=== PATIENT | female | born 1975 | race Caucasian/White ===

== ENCOUNTER → 2021-11-28 11:58 | Outpatient (BNVA) | payer SELFPAY | PROVIDERS: Family Provider Nurse Practitioner; PCP Nurse Practitioner; Visit Provider Nurse Practitioner Women's Health | DX: Z01.419 Encounter for gynecological examination (general) (routine) without abnormal findings (principal); R10.2 Pelvic and perineal pain; R87.619 Unspecified abnormal cytological findings in specimens from cervix uteri | CPT/HCPCS: 84315; 87070; 87086; 87205; 87491; 87591; 87624; 87661 ==

== ENCOUNTER → 2022-06-11 07:54 | Outpatient (BNVA) | payer SELFPAY | PROVIDERS: Family Provider Nurse Practitioner; PCP Nurse Practitioner; Visit Provider Obstetrics & Gynecology | DX: R10.2 Pelvic and perineal pain (principal); N93.9 Abnormal uterine and vaginal bleeding, unspecified | CPT/HCPCS: 76830; 76857 ==

== ENCOUNTER 2023-01-01 11:36 | Day surgery (SDC) | payer OTHER, SELFPAY ==
[2022-12-31 13:14] VITALS: BMI 38.5
--- NOTE | 2022-12-31 13:34 | P.ANESASSM_ITS ---
Pre-Anesthetic Assessment Height/Weight: Height 1.68 m Weight 108.409 kg Operation Date: 01/01/23 14:35 Proposed Procedures p Diagnostic Laparoscopy 80142,R10.2 ,G89.29(Not Applicable) - Spencer Schmitt MD Familial anesthetic complications: none Was Beta Cammy taken within 24 hours: N/A Was Clonidine taken within 24 hours: N/A Social No alcohol and No tobacco Exam alert, oriented x 3, clear to auscultation bilaterally and regular rate & rhythm Airway Submandibular: within normal limits Cervical ROM: within normal limits Mallampati: Class II Dentition: full History/ROS No significant history except as noted Anesthetic Plan ASA status: 1 Anesthesia: General Medications/Allergies Home Medications Medication Instructions Recorded Confirmed Last Taken Type estradiol 0.01% (0.1 mg/gram) 1 g vaginal .three times weekly 12/03/22 12/31/22 12/29/22 Rx vaginal cream #42.5 grams Allergies Allergy/AdvReac Type Severity Reaction Status Date / Time No Known Allergies Allergy Verified 12/31/22 13:13 [facility] Anest[facility] Medical History Abnormal Pap smear of cervix (~2009) Self reported--resulting in hysterectomy by a counseling psychologist/oncologist at [facility] in [place]. She has failed to follow-up with Pap smear since that time. No pertinent past medical history neghx: htn,dm,thyroid,dvt/pe PCP: None Surgical History H/O laparoscopy ovarian cystectomy of Right ovary at 18 y/o- performed by Dr Nieto. Hx of appendectomy (~2017) Hx of hysterectomy (~2009) LAVH bilateral salpingectomy for abnormal pap smears. Performed by Dr. Wu at [facility] counseling psychologist/oncologist. Hx of oophorectomy (~2011) R ovary--- laparoscopy performed by Dr. Nieto. Family History Grandmother Colon cancer Maternal--dx age 50 Diabetes Maternal and Paternal Uterine cancer Paternal-dx age unknown Mother Diabetes Father Diabetes Hypertension Stroke Grandfather Diabetes Maternal and Paternal Family/Other Ovarian cancer Paternal Aunt--dx age 23 Denies family history of Heart disease Hypercholesteremia Breast cancer Thyroid disease Data Anesthesia Cardiac Studies: No Data to Display
[2023-01-01] VITALS (10 sets, daily range): BP systolic 121–155; BP diastolic 80–100; PULSE 68–86; RESP 14–20; TEMP 36.1–36.6; O2SAT 97–100
[2023-01-01 12:22] LABS: Add Urine Microscopic? NO; Charge for UA Resulting for Rev
[2023-01-01 12:30] LABS: Bilirubin Urine Neg (Negative); Blood Urine Neg (Negative); Glucose Urine UA Norm (Normal); Ketones Urine Negative (Negative); Leukocyte Esterase Urine Negative (Negative); Nitrate Urine Negative (Negative); Protein Urine Neg (Negative); Specific Gravity, Urine 1.015 (1.005-1.030); Urine Appearance Clear (CLEAR); Urine Color Yellow (Yellow); Urobilinogen Urine Neg (Negative); pH Urine 7 (5-7)
[2023-01-01] MEDS: sodium chloride 0.9% 1,000 ML 30 ML IV (12:30)
[2023-01-01 12:40] LABS: Basophils % 0.5 %; Eosinophils # 0.1 10^3/uL (0.0-0.8); Eosinophils % 1.2 %; Hematocrit 44.3 % (37.0-47.0); Hemoglobin 14.6 g/dL (11.5-15.3); Lymphocytes # 2.4 10^3/uL (0.8-4.8); Lymphocytes % 28.9 %; Mean Corpuscular Volume 91.2 fl (81-99); Mean Platelet Volume 10.3 fL (7.4-10.4); Monocytes # 0.7 10^3/uL (0.2-0.9); Monocytes % 8.4 %; Neutrophils % 60.8 %; Nucleated Red Blood Cells % 0 %; Platelet Count 301 10^3/cmm (130-400); Red Blood Count 4.86 10^6/uL (4.1-5.3); White Blood Count 8.2 10^3/uL (4.0-10.0)
[2023-01-01 12:57] LABS: Alanine Aminotransferase 32 U/L (0-33); Albumin Level 4.3 g/dL (3.5-5.2); Alkaline Phosphatase 144 U/L (35-105); Blood Urea Nitrogen 11 mg/dL (6-20); Calcium 9.7 mg/dL (8.5-10.5); Carbon Dioxide 27 mmol/L (22-29); Chloride 106 mmol/L (98-107); Globulin 2.8 g/dL (1.3-4.6); Glomerular Filtration Rate 89.3 mL/min (90-130); Glucose 83 mg/dL (65-115); Osmolality Calculated 293 mOsm/kg (285-295); Sodium 142 mmol/L (136-145); Total Bilirubin 0.4 mg/dL (0.15-1.2); Total Protein 7.1 g/dL (6.6-8.7)
[2023-01-01 12:59] LABS: Anion Gap 13.4 (5-19); Aspartate Amino Transferase 34 U/L (0-32); Potassium 4.4 mmol/L (3.5-5.1)
--- NOTE | 2023-01-01 13:26 | P.ANESUD_ITS ---
Pre-Anesthetic Update Pre-Anesthetic Assessment: Date of Surgery/Procedure: 01/01/23 Preop Sabrina gnosis: Pelvic pain Proposed Procedure: Operation Date: 01/01/23 14:35 Proposed Procedures p Diagnostic Laparoscopy 64188,R10.2 ,G89.29(Not Applicable) - Spencer Schmitt MD Any changes to Pre-Anesthetic Assessment?: No Last Intake: Intake Last Liquid Date 12/31/22 Last Liquid Time 21:30 Last Solid Date 12/31/22 Last Solid Time 20:00 Labs Last 48hrs: Short CBC 01/01/23 Range/Units 12:20 WBC 8.2 (4.0-10.0) 10^3/ uL Hgb 14.6 (11.5-15.3) g/dL Hct 44.3 (37.0-47.0) % MCV 91.2 (81-99) fl Plt Count 301 (130-400) 10^3/c mm Neut % (Auto) 60.8 % Neut # (Auto) 5.00 (1.8-7.7) 10^3/u L BMP 01/01/23 12:20 Sodium 142 Potassium 4.4 Chloride 106 Carbon Dioxide 27 BUN 11 Creatinine 0.7 Glucose 83 Calcium 9.7 Liver Function 01/01/23 Range/Units 12:20 Total Bilirubin 0.4 (0.15-1.2) mg/dL AST 34 H (0-32) U/L ALT 32 (0-33) U/L Alkaline Phosphata se 144 H (35-105) U/L Albumin 4.3 (3.5-5.2) g/dL Urine 01/01/23 Range/Units 12:15 Urine Color Yellow (Yellow) Urine Appearance Clear (CLEAR) Urine pH 7 (5-7) Ur Specific Gravit y 1.015 (1.005-1.030) Urine Protein Neg (Negative) Urine Glucose (UA) Norm (Normal) Urine Ketones Negative (Negative) Urine Nitrate Negative (Negative) Urine Bilirubin Neg (Negative) Ur Leukocyte [place] ase Negative (Negative) Vitals: Temperature 97.8 F 01/01/23 12:39 Temperature Source Temporal Artery S can 01/01/23 12:39 Pulse Rate 80 01/01/23 12:39 Pulse Rhythm 01/01/23 11:57 Respiratory Rate 16 01/01/23 12:39 Blood Pressure 155/100 01/01/23 12:39 Blood Pressure Elaine n 118 01/01/23 12:39 Pulse Oximetry 97 01/01/23 12:39 Oxygen Delivery Me thod 01/01/23 12:39 Exam: Pre-Anes Outpt Exam: alert, oriented x 3, clear to auscultation bilaterally and regular rate & rhythm Cardiac Studies: No Data to Display
--- NOTE | 2023-01-01 13:34 | W.PM.OPSUD ---
Surgery/Procedure H&P Update DATE OF PROCEDURE: January 01, 2023 DATE H&P PERFORMED: 12/27/22 H&P UPDATE INFORMATION: I have reviewed H&P completed within last 30 days, I have examined patient prior to procedure and No changes to prior documentation PREOP DIAGNOSIS: Pelvic pain PLANNED PROCEDURE: Operation Date: 01/01/23 14:35 Proposed Procedures p Diagnostic Laparoscopy 82963,R10.2 ,G89.29(Not Applicable) - Spencer Schmitt MD
[2023-01-01] MEDS: scopolamine 1.5 Patch 1 PATCH TRANSDERMA (13:37)
--- NOTE | 2023-01-01 13:38 | SUR.PREOP ---
13:35 NS 500 ml BOLUS INFUSED.
[2023-01-01] MEDS: ceFAZolin 2,000 MG in sodium chloride 0.9% (plus) 50 ML 100 MG IV (13:46)
--- NOTE | 2023-01-01 14:53 | P.OP_ITS ---
Operative Report Date of procedure: January 01, 2023 Pre-op diagnosis: Preop Diagnosis Pelvic pain Post-op diagnosis: Same as above. Mild endometriosis Procedure done: Diagnostic laparoscopy. Fulguration of endometriosis lesion Specimens removed/disposition: None Surgeon: Spencer Schmitt MD Estimated blood loss (mL): 1 IV fluids (mL): 900 Urine output (mL): 200 Procedure: After informed consent, the patient was taken to the operating room where general anesthesia was administered. The patient was examined under anesthesia and found to have a normal uterus with normal adnexa. She was placed in the dorsal lithotomy position and prepped and draped in sterile fashion. Pre- Procedure Time-Out verifying the correct patient identity, correct procedure verified with consent, correct site and side, correct patient position, availab ility of correct implants and any special equipment or requirements was performed and acknowledge by the OR team. A speculum was placed in the vagina, and sponge stick was placed in the vagina. The speculum was removed from the vagina. An intraumbilical incision was made with a scalpel. While tenting up on the abdomen, a Verres needle with sleeve was admitted into the intra-abdominal cavity. A saline drop test was performed and noted to be within normal limits. Pneumoperitoneum was attained with 4 liters of carbon dioxide. The Verres needle was removed. A 5 mm trocar and sleeve were admitted into the abdomen and laparoscopic confirmation of location was achieved, A second incision was made 3 cm above the symphysis pubis, and a 5 mm trocar and sleeve were admitted into the abdomen under direct, laparoscopic visualization without complication. A survey revealed normal abdominal anatomy was normal. The pelvic survey shows post hysterectomy pelvis no pathology identified, no adhesions noted. A 5 mm blunt probe was advanced through the second trocar sleeve, and light manipulation. At the vaginal cuff small mild endometriosis lesions identied and they were fulgurated with bovie spatula. Carbon dioxide was allowed to escape from the abdomen. The instruments were removed, and skin cover with a bandage. The instruments were removed from the vagina, and excellent hemostasis was noted. The patient tolerated the procedure well, and sponge, lap and needle count were correct times two. The patient taken to the recovery room in good condition.
--- NOTE | 2023-01-01 15:27 | P.PCN_ITS ---
PACU note Narrative: VSS, Good respiratory effort, report to [employer] FARM HAND Exam: awake
--- NOTE | 2023-01-01 15:27 | PM.PACU ---
PACU note Narrative: VSS, Good respiratory effort, report to SAW BOSS Exam: awake
--- NOTE | 2023-01-01 15:55 | ANE.PACU2 ---
Inpatient post-anesthesia follow up: Airway intact: Yes Vital signs: Temperature 97.4 F Pulse Rate 74 Respiratory Rate 14 Blood Pressure 132/96 Pulse Oximetry 97 Oxygen Delivery Me thod Room Air Oxygen Flow Rate 6 Fraction of Inspir ed Oxygen Hydration adequate: Yes Nausea and vomiting: No Pain level: 3 Mental status: Baseline
--- NOTE | 2023-01-01 16:27 | SUR.PHASEII ---
16:25 becerra dc ed.balloon deflated 10ML removed prior. 350ml urine output.
== END 2023-01-01 16:56 | disposition home or self-care (01) ==
PROVIDERS: PCP Nurse Practitioner Family; Visit Provider Obstetrics & Gynecology
PROC: (CPT 49320; principal; 2023-01-01 14:15)
DX: R10.2 Pelvic and perineal pain (principal); N80.42 Endometriosis of rectovaginal septum with involvement of vagina
CPT/HCPCS: 58662; 36415; 80053; 81003; 85025; 86850; 86900; J0690; J1100; J2405; J2704; J3010; J3490; J7030

== ENCOUNTER 2023-01-06 08:58 | Outpatient (CLI) | payer OTHER, SELFPAY ==
--- NOTE | 2023-01-06 09:06 | MM_ITS ---
WS: [id number] SCREENING DIGITAL BREAST TOMOSYNTHESIS MAMMOGRAM WITH CAD HISTORY: Screening. COMPARISON: 03/03/2015 Bilateral CC and MLO with tomosynthesis and synthetic mammography submitted. Computer aided detection analyzed. Breast composition: There are scattered areas of fibroglandular density. Well-circumscribed mass horacio uring 5 x 6 mm in the anterior RIGHT breast just lateral and above the nipple. May potentially be a l ymph node. This mass is not definitely present on the prior study and needs to be further evaluated. Otherwise the appearance of each breast is stable. MM/[place] [id number] IMPRESSION: BI-RADS: 0-Incomplete: Need additional imaging evaluation FOLLOW UP: Need Additional Imaging Recommendation: RIGHT breast ultrasound, limited.
== END 2023-01-06 08:59 | disposition home or self-care (01) ==
LOC: RAD 08:58
PROVIDERS: PCP Nurse Practitioner Family; Visit Provider Nurse Practitioner Women's Health
DX: Z12.31 Encounter for screening mammogram for malignant neoplasm of breast (principal)
CPT/HCPCS: 77063; 77067

== ENCOUNTER 2023-01-30 12:36 | Outpatient (CLI) | payer OTHER, SELFPAY ==
--- NOTE | 2023-01-30 13:00 | US_ITS ---
WS: [id number] ULTRASOUND RIGHT BREAST HISTORY: Follow-up screening mammograms 01/06/2023. COMPARISON: Mammogram 01/06/2023 TECHNIQUE: 2-D and Doppler. Anterior RIGHT breast mass seen on mammography is identified at 9:00. Margins are slightly lobulated. Very minimal heterogeneity within this mass. Mass measures 6 x 5 x 7 mm. This is most likely a minim ally complex cyst. Corresponds to the mammographic finding. No suspicious masses. US/US breast RT limited* [id number] IMPRESSION: BI-RADS: 3-Probably Benign FOLLOW-UP: 6 Month Follow-up Recommend limited RIGHT breast ultrasound follow-up in 6 months. Follow-up nece ssary as this is a minimally complex cyst. Favor benign.
== END 2023-01-30 12:37 | disposition home or self-care (01) ==
PROVIDERS: PCP Nurse Practitioner Family; Visit Provider Nurse Practitioner Women's Health
DX: R92.8 Other abnormal and inconclusive findings on diagnostic imaging of breast (principal)
CPT/HCPCS: 76642

== ENCOUNTER 2023-08-04 07:43 | Outpatient (CLI) | payer OTHER, SELFPAY ==
--- NOTE | 2023-08-04 08:00 | US_ITS ---
WS: [id number] ULTRASOUND RIGHT BREAST HISTORY: 6-month follow-up indeterminate RIGHT breast cyst. COMPARISON: 01/30/2023 TECHNIQUE: 2-D and Doppler. Slight decrease in size of the slightly lobulated cyst in the RIGHT breast at 9:00. No solid componen t or increased vascularity. Cyst measures 5 x 6 x 5 mm. IMPRESSION: US/US breast RT limited* [id number] BI-RADS: 2-Benign FOLLOW-UP: See Report Patient to follow-up in 6 months for screening mammogram. Mammogram should be i n December 2023. No additional imaging of the cyst in the RIGHT breast unless t here is a change on the mammogram.
== END 2023-08-04 07:44 | disposition home or self-care (01) ==
PROVIDERS: PCP Nurse Practitioner Family; Visit Provider Nurse Practitioner Women's Health
DX: R92.8 Other abnormal and inconclusive findings on diagnostic imaging of breast (principal); N60.01 Solitary cyst of right breast
CPT/HCPCS: 76642

== ENCOUNTER 2023-09-09 08:40 | Day surgery (SDC) | payer OTHER, SELFPAY ==
[2023-09-05 13:16] LABS: Add Urine Microscopic? NO; Charge for UA Resulting for Rev
[2023-09-05 13:20] LABS: Basophils # 0.1 10^3/uL (0.0-0.1); Basophils % 0.5 %; Eosinophils # 0.1 10^3/uL (0.0-0.8); Eosinophils % 0.9 %; Hematocrit 42.4 % (36-47); Lymphocytes # 2.6 10^3/uL (0.8-4.8); Lymphocytes % 28.7 %; Mean Corpuscular HGB Conc 33.3 g/dL (30-55); Mean Corpuscular Hemoglobin 30.5 pg (27-33); Mean Corpuscular Volume 91.6 fl (85-98); Mean Platelet Volume 9.7 fL (7.4-10.4); Monocytes # 0.8 10^3/uL (0.2-0.9); Monocytes % 8.4 %; Neutrophils # 5.58 10^3/uL (1.8-7.7); Neutrophils % 61.2 %; Nucleated Red Blood Cells % 0 %; Platelet Count 317 10^3/cmm (157-399); Red Blood Count 4.63 10^6/uL (3.85-5.65); White Blood Count 9.13 10^3/uL (3.29-11.43)
--- NOTE | 2023-09-05 13:23 | ANES.PREANE2 ---
Pre-Anesthetic Assessment Height/Weight: Height 1.68 m Operation Date: 09/09/23 12:25 Proposed Procedures p Laparoscopic left oophorectomy 08931,R10.2,G89.29,N80.9(Left) - Spencer Schmitt MD Familial anesthetic complications: None Social No alcohol and No tobacco Exam alert, oriented x 3, clear to auscultation bilaterally and regular rate & rhythm Airway Mallampati: Class I Dentition: full CV/HEM Hypertension GI Gastroesophageal Reflux Disease Anesthetic Plan ASA status: 2 Anesthesia: General Risk of > 500 ml blood loss (7ml/kg in children): No Medications/Allergies Home Medications Medication Instructions Recorded Confirmed Last Taken Type ibuprofen 800 mg tablet 800 mg PO TID PRN pain #90 tabs 01/01/23 09/05/23 Unknown Rx hydrochlorothiazide 25 mg tablet 25 mg PO DAILY 02/17/23 09/05/23 09/05/23 History lisinopril 10 mg tablet 10 mg PO DAILY 02/17/23 09/05/23 09/05/23 History omeprazole 20 mg capsule,delayed 20 mg PO DAILY 06/26/23 09/05/23 09/05/23 History release Allergies Allergy/AdvReac Type Severity Reaction Status Date / Time No Known Allergies Allergy Verified 06/26/23 11:43 [facility] Anesthesia Medical History Abnormal Pap smear of cervix (~2009) Self reported--resulting in hysterectomy by a power and recovery supervisor/oncologist at [facility] in [place]. She has failed to follow-up with Pap smear since that time. No pertinent past medical history neghx: htn,dm,thyroid,dvt/pe PCP: None Surgical History H/O laparoscopy ovarian cystectomy of Right ovary at 18 y/o- performed by Dr Nieto. History of laparoscopy (01/01/23) Diagnostic laparoscopy and fulguration of endometriosis lesion for chronic pelvic pain performed by Dr. Schmitt. Mild endometriosis at the vaginal cuff otherwise normal pelvis. Hx of appendectomy (~2017) Hx of hysterectomy (~2009) LAVH bilateral salpingectomy for abnormal pap smears. Performed by Dr. Wu at [facility] power and recovery supervisor/oncologist. Hx of oophorectomy (~2011) R ovary--- laparoscopy performed by Dr. Nieto. Family History Grandmother Colon cancer Maternal--dx age 50 Diabetes Maternal and Paternal Uterine cancer Paternal-dx age unknown Mother Diabetes Father Diabetes Hypertension Stroke Grandfather Diabetes Maternal and Paternal Family/Other Ovarian cancer Paternal Aunt--dx age 23 Denies family history of Heart disease Hypercholesteremia Breast cancer Thyroid disease Data Anesthesia 09/05/23 13:00 09/05/23 13:00 Short CBC 09/05/23 Range/Units 13:00 WBC 9.13 (3.29-11.43) 10^3/uL Hgb 14.10 (11.27-16.99) g/dL Hct 42.4 (36-47) % MCV 91.6 (85-98) fl Plt Count 317 (157-399) 10^3/cmm Neut % (Auto) 61.2 % Neut # (Auto) 5.58 (1.8-7.7) 10^3/uL Cardiac Studies: No Data to Display
[2023-09-05 13:25] LABS: Bilirubin Urine Neg (Negative); Blood Urine Neg (Negative); Glucose Urine UA Norm (Normal); Ketones Urine Negative (Negative); Leukocyte Esterase Urine Negative (Negative); Nitrate Urine Negative (Negative); Protein Urine Neg (Negative); Urine Appearance Clear (CLEAR); Urine Color Yellow (Yellow); Urobilinogen Urine Norm (Negative); pH Urine 6.5 (5-7)
[2023-09-05 13:35] LABS: Alanine Aminotransferase 33 U/L (0-33); Albumin Level 4.6 g/dL (3.5-5.2); Alkaline Phosphatase 129 U/L (35-105); Anion Gap 13.3 (5-19); Aspartate Amino Transferase 27 U/L (0-32); Blood Urea Nitrogen 16 mg/dL (6-20); Calcium 9.8 mg/dL (8.5-10.5); Carbon Dioxide 28 mmol/L (22-29); Chloride 101 mmol/L (98-107); Globulin 2.7 g/dL (1.3-4.6); Glomerular Filtration Rate 76.2 mL/min (90-130); Glucose 90 mg/dL (65-115); Osmolality Calculated 287 mOsm/kg (285-295); Potassium 4.3 mmol/L (3.5-5.1); Sodium 138 mmol/L (136-145); Total Bilirubin 0.3 mg/dL (0.15-1.2); Total Protein 7.3 g/dL (6.6-8.7)
[2023-09-09] VITALS (10 sets, daily range): BP systolic 108–153; BP diastolic 70–98; PULSE 65–90; RESP 14–18; TEMP 36.1–36.2; O2SAT 92–100; BMI 38.7
[2023-09-09] MEDS: sodium chloride 0.9% 500 ML IV (09:07)
[2023-09-09] MEDS: scopolamine 1.5 Patch 1 PATCH TRANSDERMA (09:09)
--- NOTE | 2023-09-09 09:52 | P.ANESUD_ITS ---
Pre-Anesthetic Update Pre-Anesthetic Assessment: Date of Surgery/Procedure: 09/09/23 Preop Sabrina gnosis: Chronic pelvic pain, endometriosis Proposed Procedure: Operation Date: 09/09/23 10:20 Proposed Procedures p Laparoscopic left oophorectomy 44304,R10.2,G89.29,N80.9(Left) - Spencer Schmitt MD Any changes to Pre-Anesthetic Assessment?: No Last Intake: Intake Last Liquid Date 09/08/23 Last Liquid Time 22:00 Last Solid Date 09/08/23 Last Solid Time 19:00 Vitals: Temperature 97 F L 09/09/23 08:57 Temperature Source Temporal Artery S can 09/09/23 08:57 Pulse Rate 90 09/09/23 08:57 Respiratory Rate 16 09/09/23 08:57 Blood Pressure 123/92 09/09/23 08:57 Blood Pressure Elaine n 102 09/09/23 08:57 Pulse Oximetry 100 09/09/23 08:57 Oxygen Delivery Me thod Room Air 09/09/23 08:57 Exam: Pre-Anes Outpt Exam: alert, oriented x 3, clear to auscultation bilaterally and regular rate & rhythm Cardiac Studies: No Data to Display
[2023-09-09] MEDS: sodium chloride 0.9% 1,000 ML 30 ML IV (10:23)
--- NOTE | 2023-09-09 10:28 | W.PM.OPSUD ---
Surgery/Procedure H&P Update DATE OF PROCEDURE: September 09, 2023 DATE H&P PERFORMED: 09/01/23 H&P UPDATE INFORMATION: I have reviewed H&P completed within last 30 days, I have examined patient prior to procedure and No changes to prior documentation PREOP DIAGNOSIS: Chronic pelvic pain, endometriosis PLANNED PROCEDURE: Operation Date: 09/09/23 10:20 Proposed Procedures p Laparoscopic left oophorectomy 32940,R10.2,G89.29,N80.9(Left) - Spencer Schmitt MD
[2023-09-09] MEDS: ceFAZolin 3,000 MG in sodium chloride 0.9% (100 ml) 100 ML 200 MG IV (10:41)
[2023-09-09] MEDS: BUPivacaine 0.5% INJ 10 mL (11:20)
--- NOTE | 2023-09-09 11:52 | PM.OP ---
Operative Report Date of procedure: September 09, 2023 Pre-op diagnosis: Pelvic pain Endometriosis Post-op diagnosis: Same as above Post-op findings: Status post hysterectomy. No adhesions Procedure done: Diagnostic laparoscopy Left salpingo-oophorectomy Specimens removed/disposition: Left ovarian and fallopian tube Surgeon: Spencer Schmitt MD Estimated blood loss (mL): 5 IV fluids (mL): 700 Urine output (mL): 150 Complications: None Findings: Normal post hysterectomy findings no adhesions Brief History: Ms. Colbert 48-year-old female is status post hysterectomy and right salpingo-oophorectomy due to endometriosis with a history of chronic pelvic pain, and dyspareunia. Procedure: After informed consent, the patient was taken to the operating room where general anesthesia was administered. The patient was examined under anesthesia and found to have a normal uterus with normal adnexa. She was placed in the dorsal lithotomy position and prepped and draped in sterile fashion. Pre-Procedure Time-Out verifying the correct patient identity, correct procedure verified with consent, correct site and side, correct patient position, availability of correct implants and any special equipment or requirements was performed and acknowledge by the OR team. A sponge stick was placed in the vagina, and and held in place with a hemostat. An intraumbilical incision was made with a scalpel. While tenting up on the abdomen, a Verres needle with sleeve was admitted into the intra-abdominal cavity. A saline drop test was performed and noted to be within normal limits. Pneumoperitoneum was attained with 4 liters of carbon dioxide. The Verres needle was removed. A 5 mm trocar and sleeve were admitted into the abdomen and laparoscopic confirmation of location was achieved, A second incision was made 3 cm above the symphysis pubis, and a 5 mm trocar and sleeve were admitted into the abdomen under direct, laparoscopic visualization without complication. A survey revealed normal abdominal anatomy. Pelvic survey shows status post hysterectomy, no adhesions. A 5 mm blunt probe was advanced through the second trocar sleeve, and light manipulation of of left ovary and assesment of cul de sac was performed. The left ovary and fallopian tube were grasped with laparoscopic [place] for traction while using a LigaSure blunt tipped device the left ovary and fallopian tube were grasped, sealed and cut. The left ovary and fallopian tube was taken out through the suprapubic trocar incision. Good hemostasis was reassured. The carbon dioxide was allowed to escape from the abdomen. The instruments were removed, and skin cover with a 3-0 Monocryl and Dermabond. The instruments were removed from the vagina, and excellent hemostasis was noted. The patient tolerated the procedure well, and sponge, lap and needle count were correct times two. The patient taken to the recovery room in good condition.
[2023-09-09] MEDS: fentaNYL 50 mcg/mL INJ 2mL IVP (12:15)
[2023-09-09] MEDS: HYDROcodone-acetaminophen 5-325 mg Tablet 1 TAB PO (12:47)
--- NOTE | 2023-09-09 16:56 | ANE.PACU2 ---
Inpatient post-anesthesia follow up: Airway intact: Yes Vital signs: Temperature 97.1 F Pulse Rate 78 Respiratory Rate 18 Blood Pressure 108/72 Pulse Oximetry 97 Oxygen Delivery Me thod Room Air Oxygen Flow Rate 8 Fraction of Inspir ed Oxygen Hydration adequate: Yes Nausea and vomiting: No Pain level: 3 Mental status: Baseline
== END 2023-09-09 13:38 | disposition home or self-care (01) ==
PROVIDERS: PCP Nurse Practitioner Family; Visit Provider Obstetrics & Gynecology
PROC: (CPT 58661; principal; 2023-09-09 10:10)
DX: N80.30 Endometriosis of pelvic peritoneum, unspecified (principal); Z90.710 Acquired absence of both cervix and uterus; I10 Essential (primary) hypertension; K21.9 Gastro-esophageal reflux disease without esophagitis
CPT/HCPCS: 58661; 36415; 80053; 81003; 85025; 86850; 86900; 88305; J0690; J1100; J1200; J1885; J2250; J2405; J2704; J3010; J3490; J7030; J7040

== ENCOUNTER 2024-01-22 15:20 | Emergency (ER) | payer BC, SELFPAY ==
[2024-01-22 15:24] VITALS: BP 128/94; PULSE 86; RESP 18; TEMP 36.7; O2SAT 97; BMI 39.5
[2024-01-22 15:30] VITALS: BP 128/94; PULSE 101; RESP 16; O2SAT 97
--- NOTE | 2024-01-22 15:30 | PC.NURSE ---
Pt placed on bedside shelter monitor
--- NOTE | 2024-01-22 15:30 | XR_ITS ---
WS: [id number] Portable AP upright chest, 01/22/2024 Clinical Data: cp Comparison: None. Findings: No nodules, masses or effusions are seen. The heart is normal. The pulmonary vascularity is not increased. No pneumonia or pneumothorax is seen. Monitor leads are on the chest wall. Impression: Negative chest.
--- NOTE | 2024-01-22 15:30 | ECG_ITS ---
[facility] Test Date: 2024-01-22 Pat Name: Eloina Munguia Department: Room: Gender: Female Playground Aide: : 1975 Requested By: Lee Ann Deleon Order Number: [id number] Gerda MD: Baudilio Pineda M.D. Measurements Intervals [place] Rate: 78 P: 61 CA: 161 QRS: 29 QRSD: 103 T: 43 QT: 362 QTc: 414 Interpretive Statements SINUS RHYTHM WITH SINUS ARRHYTHMIA No previous ECG available for comparison Electronically Signed On 01-23-2024 17:30:15 SOD FARMER by Baudilio Pineda M.D. [id number]
--- NOTE | 2024-01-22 15:36 | CTR_ITS ---
PROCEDURE INFORMATION: Exam: CT Head Without Contrast Exam date and time: 01/22/2024 4:18 PM Age: 48 years old Clinical indication: Pain; Headache; Additional info: [place] TECHNIQUE: Imaging protocol: Computed tomography of the head without contrast. Radiation optimization: All CT scans at this facility use at least one of these dose optimization techniques: automated exposure control; mA and/or kV adjustment per patient size (includes targeted exams where dose is matched to clinical indication); or iterative reconstruction. COMPARISON: No relevant prior studies available. RADIATION DOSE METRICS: Total DLP (mGy-cm): 1031 FINDINGS: Brain: No evidence of intra-axial or extra-axial hemorrhage. No mass effect or midline shift. Goodson-white differentiation is maintained. Basilar cisterns are patent. Cerebral ventricles: No hydrocephalus. Paranasal sinuses: The visualized paranasal sinuses are well aerated. Mastoid air cells: The visualized mastoids and middle ears are clear. Bones/joints: The visualized calvarium and bony orbits are intact. Soft tissues: No gross soft tissue abnormality. CT/CT head wo con* [id number] IMPRESSION: 1. No acute intracranial abnormality.
--- NOTE | 2024-01-22 15:36 | W.ED.ARRPALP ---
HPI - Arrhythmia/Palpitations General: Chief Complaint: Arrhythmia/Palpitations Stated Complaint: arrythmia Time Seen by Provider: 01/22/24 15:24 Source: patient and EMS Mode of arrival: EMS Limitations: no limitations History of Present Illness: 48-year-old female states that she has had a headache over the last 6 days she states gradually worsened its posterior states her headaches currently a 7 out of 10 denies any photophobia or phonophobia denies any fevers denies this being the worst headache of her life. She states also today around 11 she had some fluttery feeling in her chest denies any actual chest pain states that this resolved she went to the clinic and they were concerned with her EKG I reviewed the EKG and see no acute abnormalities on the EKG there. Associated symptoms: Deny nausea or vomiting Review of Systems Const: Denies: fever(s), chills, body aches or change in appetite Eyes: Denies: blurry vision or eye discomfort ENMT: Denies: throat pain or dental pain Card: Denies: chest pain Resp: Denies: dyspnea GI: Denies: abdominal pain, nausea, vomiting or diarrhea Musc: Denies: neck pain or back pain Skin/Breast: Denies: rash Neuro: Reports: headache(s) [facility] ED PFSH: Medical History Surgical aftercare, genitourinary system Abnormal Pap smear of cervix (~2009) Self reported--resulting in hysterectomy by a chief lending officer/oncologist at [facility] in [place]. She has failed to follow-up with Pap smear since that time. No pertinent past medical history neghx: htn,dm,thyroid,dvt/pe PCP: None Surgical History History of laparoscopy (~09/09/23) Diagnostic laparoscopy with LEFT salpingo-oophorectomy for CPP and endometriosis performed by Oskar at [facility]; no adhesions or findings. History of laparoscopy (01/01/23) Diagnostic laparoscopy and fulguration of endometriosis lesion for chronic pelvic pain performed by Dr. Schmitt. Mild endometriosis at the vaginal cuff otherwise normal pelvis. H/O laparoscopy ovarian cystectomy of Right ovary at 18 y/o- performed by Dr Nieto. Hx of oophorectomy (~2011) R ovary--- laparoscopy performed by Dr. Nieto. Hx of hysterectomy (~2009) [facility] bilateral salpingectomy for abnormal pap smears. Performed by Dr. Wu at [facility] chief lending officer/oncologist. Hx of appendectomy (~2017) Family History Grandmother Colon cancer Maternal--dx age 50 Diabetes Maternal and Paternal Uterine cancer Paternal-dx age unknown Mother Diabetes Father Diabetes Hypertension Stroke Grandfather Diabetes Maternal and Paternal Family/Other Ovarian cancer Paternal Aunt--dx age 23 Denies family history of Heart disease Hypercholesteremia Breast cancer Thyroid disease Physical Exam Const: COMMON NORMALS: no acute distress, patient oriented x3 and healthy appearing HENMT: COMMON NORMALS: normocephalic and atraumatic HEAD & SCALP: normocephalic and atraumatic Eye: COMMON NORMALS: Equal, round and reactive pupils present and EOMs intact bilaterally PUPIL: Yes Equal, round and reactive pupils present Neck/C-Spine: COMMON NORMALS: full ROM and supple Chest: COMMONS NORMALS: normal inspection of the chest and normal palpation of entire chest wall Resp: COMMON NORMALS: normal respiratory effort, No retractions, No use of accessory muscles and clear to auscultation bilaterally AUSCULTATION: clear to auscultation bilaterally Cardio: COMMON NORMALS: regular rate, regular rhythm and No murmurs present (Cardio) RATE: regular rate RHYTHM: regular rhythm GI: COMMON NORMALS: Normal to inspection, nondistended, normoactive bowel sounds present, Soft to palpation, non-tender and no masses PALPATION: Yes Soft to palpation Extremity: COMMON NORMALS: normal to inspection and full ROM Neuro: COMMON NORMALS: patient oriented x3, moves all extremities and no focal motor deficits Psych: COMMON NORMALS: mental status grossly normal, Normal thought process present and cooperative THOUGHT PROCESS: Normal thought process present Skin: COMMON NORMALS: no rashes or lesions noted and no wounds GENERAL SKIN EXAM: no rashes or lesions noted Course Vital Signs: Vital signs: Vital Signs Temperature 98.1 F 01/22/24 15:24 Pulse Rate 74 01/22/24 16:43 Respiratory Rate 15 01/22/24 16:43 Blood Pressure 103/57 01/22/24 16:43 Pulse Oximetry 97 01/22/24 16:43 Oxygen Delivery Me thod Room Air 01/22/24 16:43 MDM - Arrhythmia/Palpitations Medical Decision Making Patient presents here with headache headaches improved likely a tension headache she has no signs of subarachnoid hemorrhage no signs of meningitis head CT is normal I reviewed the EKG from the clinic it was not normal EKG here and troponins normal no signs acute coronary syndrome she stable for discharge she is follow-up with PCP and return if worsening she understands and agrees to plan. Medical Records I reviewed the patient's medical records. Lab Data I reviewed the patient's lab results. 01/22/24 15:50 01/22/24 15:[address] 01/22/24 15:36 IMPRESSION: 1. No acute intracranial abnormality. Laboratory Results WBC 9.14 10^3/uL (3.29-11.43) 01/22/24 15:50 RBC 4.69 10^6/uL (3.85-5.65) 01/22/24 15:50 Hgb 14.20 g/dL (11.27-16.99) 01/22/24 15:50 Hct 42.4 % (36-47) 01/22/24 15:50 MCV 90.4 fl (85-98) 01/22/24 15:50 MCH 30.3 pg (27-33) 01/22/24 15:50 MCHC 33.5 g/dL (30-55) 01/22/24 15:50 RDW 13.3 % (12.1-15.1) 01/22/24 15:50 Plt Count 320 10^3/cmm (157-399) 01/22/24 15:50 MPV 9.9 fL (7.4-10.4) 01/22/24 15:50 Neut % (Auto) 57.3 % 01/22/24 15:50 Lymph % (Auto) 31.7 % 01/22/24 15:50 [place] % (Auto) 9.3 % 01/22/24 15:50 Eos % (Auto) 1.0 % 01/22/24 15:50 Baso % (Auto) 0.4 % 01/22/24 15:50 Neut # (Auto) 5.23 10^3/uL (1.8-7.7) 01/22/24 15:50 Lymph # (Auto) 2.9 10^3/uL (0.8-4.8) 01/22/24 15:50 [place] # (Auto) 0.9 10^3/uL (0.2-0.9) 01/22/24 15:50 Eos # (Auto) 0.1 10^3/uL (0.0-0.8) 01/22/24 15:50 Baso # (Auto) 0.0 10^3/uL (0.0-0.1) 01/22/24 15:50 Nucleated RBC % (auto) 0 % 01/22/24 15:50 Nucleated RBCs # 0.0 /100WBC 01/22/24 15:50 Sodium 143 mmol/L (136-145) 01/22/24 15:50 Potassium 3.9 mmol/L (3.5-5.1) 01/22/24 15:50 Chloride 104 mmol/L (98-107) 01/22/24 15:50 Carbon Dioxide 27 mmol/L (22-29) 01/22/24 15:50 Anion Gap 15.9 (5-19) 01/22/24 15:50 BUN 13 mg/dL (6-20) 01/22/24 15:50 Creatinine 0.8 mg/dL (0.5-0.9) 01/22/24 15:50 GFR Calculation 76.2 mL/min (90-130) L 01/22/24 15:50 Glucose 89 mg/dL (65-115) 01/22/24 15:50 Calculated Osmolality 296 mOsm/kg (285-295) H 01/22/24 15:50 Calcium 9.7 mg/dL (8.5-10.5) 01/22/24 15:50 Total Bilirubin 0.2 mg/dL (0.15-1.2) 01/22/24 15:50 AST 24 U/L (0-32) 01/22/24 15:50 ALT 31 U/L (0-33) 01/22/24 15:50 Alkaline Phosphatase 121 U/L (35-105) H 01/22/24 15:50 Troponin T Baseline < 6 ng/L (0-10) 01/22/24 15:50 Total Protein 7.0 g/dL (6.6-8.7) 01/22/24 15:50 Albumin 4.3 g/dL (3.5-5.2) 01/22/24 15:50 Globulin 2.7 g/dL (1.3-4.6) 01/22/24 15:50 All radiology interpretation(s) finalized by discharge EKG Data EKG 1: I personally reviewed and interpreted this EKG as follows: EKG interpretation date: 01/22/24 EKG interpretation time: 15:37 Interpretation: nsr hr [address] or t wave abnormalities qrs 103 qtc 396 Other EKG comments: Head CT 01/22/24 15:36 IMPRESSION: 1. No acute intracranial abnormality. Discharge Plan Discharge Patient Disposition: Home Clinical Impression: Headache Condition: Stable Prescriptions: No Action lisinopril 10 mg tablet 10 mg PO DAILY hydrochlorothiazide 25 mg tablet 25 mg PO DAILY omeprazole 20 mg capsule,delayed release(DR/EC) 20 mg PO DAILY estradiol [Estrace] 0.01 % (0.1 mg/gram) cream 1 g vaginal .2-3 times weekly Qty: 42.5 3RF Rx Instructions: space out doses estradiol 0.5 mg tablet 0.5 mg PO DAILY Qty: 90 3RF Discharge Orders: Discharge ED (Routine); Ordered 01/22/24 Ordered By: Lee Ann Deleon Referrals: Lori Dugan NP [Primary Care Provider] - 4-7 days Discharge Diet: Advance as tolerated Discharge Activity: Resume usual activity Patient Instructions: General Headache (ED) Coding Level of Care Code ED Marketing Trainee for Rae Salazar
[2024-01-22] MEDS: promethazine 25 mg/mL SDV 1 mL IM (15:54)
[2024-01-22] MEDS: ketorolac 30 mg/mL INJ 15 MG IVP (15:54)
[2024-01-22 16:08] LABS: Basophils % 0.4 %; Eosinophils # 0.1 10^3/uL (0.0-0.8); Hematocrit 42.4 % (36-47); Lymphocytes # 2.9 10^3/uL (0.8-4.8); Lymphocytes % 31.7 %; Mean Corpuscular HGB Conc 33.5 g/dL (30-55); Mean Corpuscular Hemoglobin 30.3 pg (27-33); Mean Corpuscular Volume 90.4 fl (85-98); Mean Platelet Volume 9.9 fL (7.4-10.4); Monocytes # 0.9 10^3/uL (0.2-0.9); Monocytes % 9.3 %; Neutrophils # 5.23 10^3/uL (1.8-7.7); Neutrophils % 57.3 %; Nucleated Red Blood Cells % 0 %; Platelet Count 320 10^3/cmm (157-399); Red Blood Count 4.69 10^6/uL (3.85-5.65); Red Cell Distribution Width 13.3 % (12.1-15.1); White Blood Count 9.14 10^3/uL (3.29-11.43)
[2024-01-22 16:26] LABS: Troponin(5th) Baseline < 6 ng/L (0-10)
[2024-01-22 16:30] LABS: Alanine Aminotransferase 31 U/L (0-33); Albumin Level 4.3 g/dL (3.5-5.2); Alkaline Phosphatase 121 U/L (35-105); Anion Gap 15.9 (5-19); Aspartate Amino Transferase 24 U/L (0-32); Blood Urea Nitrogen 13 mg/dL (6-20); Calcium 9.7 mg/dL (8.5-10.5); Carbon Dioxide 27 mmol/L (22-29); Chloride 104 mmol/L (98-107); Creatinine Clr Calc Pharmacy 107.4735; Globulin 2.7 g/dL (1.3-4.6); Glomerular Filtration Rate 76.2 mL/min (90-130); Glucose 89 mg/dL (65-115); Osmolality Calculated 296 mOsm/kg (285-295); Potassium 3.9 mmol/L (3.5-5.1); Sodium 143 mmol/L (136-145); Total Bilirubin 0.2 mg/dL (0.15-1.2)
[2024-01-22 16:43] VITALS: BP 103/57; PULSE 74; RESP 15; O2SAT 97
[2024-01-22] MEDS: HYDROcodone-acetaminophen 5-325 mg Tablet 1 TAB PO (17:19)
[2024-01-22 17:30] LABS: Troponin 5 2HR Delta 0.00001 ABS# (0-10)
== END 2024-01-22 17:29 | disposition home or self-care (01) ==
PROVIDERS: Emergency Provider Emergency Medicine; PCP Nurse Practitioner Family
DX: R51.9 Headache, unspecified (principal)
CPT/HCPCS: 36415; 70450; 71045; 80053; 84484; 85025; 93005; 96372; 96374; 99285; J1885; J2550

== ENCOUNTER 2024-09-16 11:56 | Outpatient (CLI) | payer BC, SELFPAY ==
--- NOTE | 2024-09-16 12:00 | MM_ITS ---
WS: [id number] Bilateral screening 3D tomosynthesis digital mammogram, 09/16/2024 12:00 PM Clinical Data: Z12.39 - Encounter for other screening for malignant neop... Comparison: 01/06/2023, 04/04/2020, 03/03/2015 Findings: No spiculated masses or clustered calcifications are seen. There are no secondary signs of carcinoma . MM/MM scr BI tomosynthesis [id number] Impression: Negative bilateral mammogram unchanged. Recommend annual screening mammograms. BIRADS: 1 - Negative. FOLLOW UP: 1 Year Follow-up DENSITY: There are scattered areas of fibroglandular density. The CAD purchase order checker was used
== END 2024-09-16 11:57 | disposition home or self-care (01) ==
LOC: MOBLMAM 11:59
PROVIDERS: PCP Obstetrics & Gynecology; Visit Provider Obstetrics & Gynecology
DX: Z12.31 Encounter for screening mammogram for malignant neoplasm of breast (principal)
CPT/HCPCS: 77063; 77067

== ENCOUNTER 2024-12-10 10:54 | Emergency (ER) | payer OTHER, SELFPAY ==
[2024-12-10 12:01] VITALS: BP 156/93; PULSE 86; RESP 18; TEMP 36.3; O2SAT 99; BMI 41.9
[2024-12-10 13:03] LABS: Basophils % 0.4 %; Eosinophils # 0.1 10^3/uL (0.0-0.8); Eosinophils % 1.6 %; Hematocrit 42.1 % (36-47); Lymphocytes # 2.3 10^3/uL (0.8-4.8); Mean Corpuscular HGB Conc 32.3 g/dL (30-55); Mean Corpuscular Hemoglobin 29.8 pg (27-33); Mean Corpuscular Volume 92.1 fl (85-98); Mean Platelet Volume 9.6 fL (7.4-10.4); Monocytes # 0.6 10^3/uL (0.2-0.9); Neutrophils # 3.98 10^3/uL (1.8-7.7); Neutrophils % 56.7 %; Nucleated Red Blood Cells % 0 %; Platelet Count 274 10^3/cmm (157-399); Red Blood Count 4.57 10^6/uL (3.85-5.65); Red Cell Distribution Width 13.4 % (12.1-15.1); White Blood Count 7.01 10^3/uL (3.29-11.43)
[2024-12-10 13:52] LABS: Alanine Aminotransferase 40 U/L (0-33); Albumin Level 4.2 g/dL (3.5-5.2); Alkaline Phosphatase 118 U/L (35-105); Anion Gap 14.4 (5-19); Aspartate Amino Transferase 34 U/L (0-32); Blood Urea Nitrogen 11 mg/dL (6-20); Calcium 9.8 mg/dL (8.5-10.5); Carbon Dioxide 25 mmol/L (22-29); Chloride 107 mmol/L (98-107); Creatinine Clr Calc Pharmacy 125.6081; Globulin 2.7 g/dL (1.3-4.6); Glomerular Filtration Rate 88.6 mL/min (90-130); Glucose 93 mg/dL (65-115); Osmolality Calculated 293 mOsm/kg (285-295); Potassium 4.4 mmol/L (3.5-5.1); Sodium 142 mmol/L (136-145); Total Bilirubin 0.3 mg/dL (0.15-1.2); Total Protein 6.9 g/dL (6.6-8.7)
[2024-12-10 15:23] LABS: Bilirubin Urine Negative (Negative); Blood Urine Negative (Negative); Glucose Urine UA Negative (Normal); Ketones Urine Negative (Negative); Leukocyte Esterase Urine Negative (Negative); Nitrate Urine Negative (Negative); Protein Urine Negative (Negative); Specific Gravity, Urine 1.015 (1.005-1.030); Urine Appearance Clear (CLEAR); Urine Color Yellow (Yellow); Urobilinogen Urine 0.2 mg/dL (Negative)
[2024-12-10 15:28] LABS: Add Urine Microscopic? YES; Bacteria Urine None Seen /hpf; Hyaline Casts Urine 0-4 /lpf; RBC Urine 0-2 /hpf (0-2); WBC Urine 0-5 /hpf (0-5)
[2024-12-10 15:33] VITALS: BP 143/96; PULSE 76; RESP 18; O2SAT 95
[2024-12-10] MEDS: orphenadrine 30 mg/mL Inj 2 mL 60 MG IVP (15:57)
[2024-12-10] MEDS: ketorolac 30 mg/mL INJ 15 MG IVP (15:57)
--- NOTE | 2024-12-10 16:46 | ED_ITS ---
HPI - Abdominal Pain 2 General: Chief Complaint: Abdominal Pain Stated Complaint: kidney pain Time Seen by Provider: 12/10/24 11:21 History of Present Illness: 49-year-old female presents with right f lank and right upper quadrant pain. Is been going on for least a week. She was seen about a week ago and told she had a kidney stone at another ER. Yesterday she had a CT and ultrasound that was both negative. She presents today because she continues to have pain. Associated Symptoms: Denies chills, fever(s), nausea and vomiting Related Data Home Medications Medication Instructions Recorded Confirmed hydrochlorothiazide 25 mg tablet 25 mg PO DAILY 02/17/23 12/10/24 lisinopril 10 mg tablet 10 mg PO DAILY 02/17/23 12/10/24 omeprazole 20 mg capsule,delayed 20 mg PO DAILY 06/26/23 12/10/24 release diclofenac sodium 50 mg 50 mg PO TID 12/10/24 12/10/24 tablet,delayed release hyoscyamine sulfate 0.125 mg 0.125 mg PO QID PRN Nausea 12/10/24 12/10/24 sublingual tablet magnesium oxide 1,000 mg PO DAILY 12/10/24 12/10/24 tamsulosin 0.4 mg capsule 0.4 mg PO DAILY 12/10/24 12/10/24 Previous Rx's Medication Instructions Recorded estradiol 0.01% (0.1 mg/gram) 1 g vaginal .2-3 times weekly 09/08/24 vaginal cream (Estrace) #42.5 grams estradiol 0.5 mg tablet 0.5 mg PO DAILY #90 tabs 09/08/24 hyoscyamine sulfate 0.125 mg 0.125 mg sublingual TID PRN 12/10/24 sublingual tablet (Levsin/SL) dyspepsia #30 tabs Allergies Allergy/AdvReac Type Severity Reaction Status Date / Time No Known Allergies Allergy Verified 09/08/24 10:47 Review of Systems 2 Const: Denies: fever(s) or chills Resp: Denies: dyspnea or productive cough GI: Reports: abdominal pain; Denies: nausea or vomiting : Reports: flank pain Neuro: Denies: headache(s) PFSH ED 2 PFSH: Medical History (Updated 12/10/24 @ 16:45 by Claude Mcwilliams, DO) Menopause syndrome Surgical aftercare, genitourinary system Abnormal Pap smear of cervix (~2009) Self reported--resulting in hysterectomy by a manager private/oncologist at [facility] in [place]. She has failed to follow-up with Pap smear since that time. No pertinent past medical history neghx: htn,dm,thyroid,dvt/pe PCP: None Surgical History History of laparoscopy (~09/09/23) Diagnostic laparoscopy with LEFT salpingo-oophorectomy for CPP and endometriosis performed by Oskar at [facility]; no adhesions or findings. History of laparoscopy (01/01/23) Diagnostic laparoscopy and fulguration of endometriosis lesion for chronic pelvic pain performed by Dr. Schmitt. Mild endometriosis at the vaginal cuff otherwise normal pelvis. H/O laparoscopy ovarian cystectomy of Right ovary at 18 y/o- performed by Dr Nieto. Hx of oophorectomy (~2011) R ovary--- laparoscopy performed by Dr. Nieto. Hx of hysterectomy (~2009) [facility] bilateral salpingectomy for abnormal pap smears. Performed by Dr. Wu at [facility] manager private/oncologist. Hx of appendectomy (~2017) Family History Grandmother Colon cancer Maternal--dx age 50 Diabetes Maternal and Paternal Uterine cancer Paternal-dx age unknown Mother Diabetes Father Diabetes Hypertension Stroke Grandfather Diabetes Maternal and Paternal Family/Other Ovarian cancer Paternal Aunt--dx age 23 Denies family history of Heart disease Hypercholesteremia Breast cancer Thyroid disease Social History Smoking and tobacco/nicotine status: never used tobacco/nicotine Physical Exam 2 Const: COMMON NORMALS: no acute distress, patient oriented x3 and alert Resp: COMMON NORMALS: normal respiratory effort, No retractions and clear to auscultation bilaterally AUSCULTATION: clear to auscultation bilaterally Cardio: COMMON NORMALS: regular rate and regular rhythm RATE: regular rate RHYTHM: regular rhythm GI: COMMON NORMALS: Soft to palpation PALPATION: Yes Soft to palpation, No Guarding due to palpation present (GI) and No Rigid due to palpation Extremity: COMMON NORMALS: normal to inspection, full ROM and capillary refill normal Neuro: COMMON NORMALS: patient oriented x3, moves all extremities and no focal motor deficits SENSORIUM/ORIENTATION: Yes alert Skin: COMMON NORMALS: no rashes or lesions noted GENERAL SKIN EXAM: no rashes or lesions noted Course 2 Vital Signs: Vital signs: Vital Signs Temperature 97.4 F L 12/10/24 12:01 Pulse Rate 76 12/10/24 15:33 Respiratory Rate 18 12/10/24 15:33 Blood Pressure 143/96 12/10/24 15:33 Pulse Oximetry 95 12/10/24 15:33 Oxygen Delivery Me thod Room Air 12/10/24 12:01 MDM - Abdominal Pain Medical Decision Making Patient's labs were ordered reviewed and show mild abnormalities of her liver enzymes. However I did review patient's ultrasound and CT from yesterday that were both negative. I did give her Toradol and a muscle relaxant which gave her some relief. I will prescribe her Levsin in case she is having gallbladder spasms. I recommend she follow-up with her primary care provider or GI specialist and consider an outpatient HIDA scan if she is continue to have pain in her right upper quadrant. At this time there is no further indications for imaging as she just had imaging yesterday or further evaluation she has a normal white count and just slight elevation of her AST, ALT and alk phos but a negative lipase, negative UA. Along with the negative ultrasound and CT from yesterday.. Lab Data 12/10/24 12:58 12/10/24 12:41 Labs/Radiology: Laboratory Results WBC 7.01 10^3/uL (3.29-11.43) 12/10/24 12:58 RBC 4.57 10^6/uL (3.85-5.65) 12/10/24 12:58 Hgb 13.60 g/dL (11.27-16.99) 12/10/24 12:58 Hct 42.1 % (36-47) 12/10/24 12:58 MCV 92.1 fl (85-98) 12/10/24 12:58 MCH 29.8 pg (27-33) 12/10/24 12:58 MCHC 32.3 g/dL (30-55) 12/10/24 12:58 RDW 13.4 % (12.1-15.1) 12/10/24 12:58 Plt Count 274 10^3/cmm (157-399) 12/10/24 12:58 MPV 9.6 fL (7.4-10.4) 12/10/24 12:58 Neut % (Auto) 56.7 % 12/10/24 12:58 Lymph % (Auto) 33.0 % 12/10/24 12:58 [place] % (Auto) 8.0 % 12/10/24 12:58 Eos % (Auto) 1.6 % 12/10/24 12:58 Baso % (Auto) 0.4 % 12/10/24 12:58 Neut # (Auto) 3.98 10^3/uL (1.8-7.7) 12/10/24 12:58 Lymph # (Auto) 2.3 10^3/uL (0.8-4.8) 12/10/24 12:58 [place] # (Auto) 0.6 10^3/uL (0.2-0.9) 12/10/24 12:58 Eos # (Auto) 0.1 10^3/uL (0.0-0.8) 12/10/24 12:58 Baso # (Auto) 0.0 10^3/uL (0.0-0.1) 12/10/24 12:58 Nucleated RBC % (auto) 0 % 12/10/24 12:58 Nucleated RBCs # 0.0 /100WBC 12/10/24 12:58 Sodium 142 mmol/L (136-145) 12/10/24 12:41 Potassium 4.4 mmol/L (3.5-5.1) 12/10/24 12:41 Chloride 107 mmol/L (98-107) 12/10/24 12:41 Carbon Dioxide 25 mmol/L (22-29) 12/10/24 12:41 Anion Gap 14.4 (5-19) 12/10/24 12:41 BUN 11 mg/dL (6-20) 12/10/24 12:41 Creatinine 0.7 mg/dL (0.5-0.9) 12/10/24 12:41 GFR Calculation 88.6 mL/min (90-130) L 12/10/24 12:41 Glucose 93 mg/dL (65-115) 12/10/24 12:41 Calculated Osmolality 293 mOsm/kg (285-295) 12/10/24 12:41 Calcium 9.8 mg/dL (8.5-10.5) 12/10/24 12:41 Total Bilirubin 0.3 mg/dL (0.15-1.2) 12/10/24 12:41 AST 34 U/L (0-32) H 12/10/24 12:41 ALT 40 U/L (0-33) H 12/10/24 12:41 Alkaline Phosphatase 118 U/L (35-105) H 12/10/24 12:41 Total Protein 6.9 g/dL (6.6-8.7) 12/10/24 12:41 Albumin 4.2 g/dL (3.5-5.2) 12/10/24 12:41 Globulin 2.7 g/dL (1.3-4.6) 12/10/24 12:41 Urine Color Yellow (Yellow) 12/10/24 15:09 Urine Appearance Clear (CLEAR) 12/10/24 15:09 Urine pH 7.0 (5-7) 12/10/24 15:09 Ur Specific [place] 1.015 (1.005-1.030) 12/10/24 15:09 Urine Protein Negative (Negative) 12/10/24 15:09 Urine Glucose (UA) Negative (Normal) 12/10/24 15:09 Urine Ketones Negative (Negative) 12/10/24 15:09 Urine Blood Negative (Negative) 12/10/24 15:09 Urine Nitrate Negative (Negative) 12/10/24 15:09 Urine Bilirubin Negative (Negative) 12/10/24 15:09 Urine Urobilinogen 0.2 mg/dL (Negative) 12/10/24 15:09 Ur Leukocyte Esterase Negative (Negative) 12/10/24 15:09 Urine RBC 0-2 /hpf (0-2) 12/10/24 15:09 Urine WBC 0-5 /hpf (0-5) 12/10/24 15:09 Ur Squamous Epith Cells 6-10 /hpf (0-5) 12/10/24 15:09 Amorphous Sediment Not Reportable 12/10/24 15:09 Urine Bacteria None seen /hpf (NONE) 12/10/24 15:09 Hyaline Casts 0-4 /lpf H 12/10/24 15:09 No radiology studies performed this visit Discharge Plan Discharge Patient Disposition: Home Clinical Impression: Flank pain, Abdominal pain, RUQ (right upper quadrant) Condition: Stable Prescriptions: New hyoscyamine sulfate [Levsin/SL] 0.125 mg tablet, sublingual 0.125 mg sublingual TID PRN (Reason: dyspepsia) Qty: 30 0RF No Action lisinopril 10 mg tablet 10 mg PO DAILY hydrochlorothiazide 25 mg tablet 25 mg PO DAILY omeprazole 20 mg capsule,delayed release(DR/EC) 20 mg PO DAILY estradiol [Estrace] 0.01 % (0.1 mg/gram) cream 1 g vaginal .2-3 times weekly Qty: 42.5 3RF Rx Instructions: twice a week estradiol 0.5 mg tablet 0.5 mg PO DAILY Qty: 90 3RF Rx Instructions: off 5 days; repeat cycle tamsulosin 0.4 mg capsule 0.4 mg PO DAILY hyoscyamine sulfate 0.125 mg tablet, sublingual 0.125 mg PO QID PRN (Reason: Nausea) magnesium oxide 500 mg magnesium tablet 1,000 mg PO DAILY diclofenac sodium 50 mg tablet,delayed release (DR/EC) 50 mg PO TID Discharge Orders: Discharge ED (Routine); Ordered 12/10/24 Ordered By: Claude Mcwilliams Referrals: Spencer Schmitt MD [Primary Care Provider] - Discharge Diet: Advance as tolerated Discharge Activity: Increase activity as tolerated Patient Instructions: Abdominal Pain (ED), Opioid Safety, Pain Management Activity Restrictions/Additional Instructions: Please follow-up with your primary care provider and general surgery/GI and discuss a possible HIDA scan for further evaluation of your gallbladder. Stand Alone Forms: Work/School Release Coding Level of Care Code ED Registered Representative for Rae Salazar
[2024-12-10 17:03] VITALS: BP 151/112; PULSE 94; O2SAT 96
== END 2024-12-10 17:04 | disposition home or self-care (01) ==
PROVIDERS: Emergency Provider Student in an Organized Health Care Education/Training Program; PCP Obstetrics & Gynecology
DX: R10.11 Right upper quadrant pain (principal)
CPT/HCPCS: 36415; 80053; 81001; 85025; 96374; 96375; 99284; J1885; J2360

== ENCOUNTER 2025-01-11 06:00 | Outpatient (RCR) | payer OTHER, SELFPAY | END 2025-01-14 23:59 | disposition home or self-care (01) | LOC: WPT 06:00 | PROVIDERS: Visit Provider Nurse Practitioner Family | DX: M54.50 Low back pain, unspecified (principal) | CPT/HCPCS: 97110; 97161 ==

== ENCOUNTER 2025-01-15 06:00 | Outpatient (RCR) | payer OTHER, SELFPAY | END 2025-02-14 23:59 | disposition home or self-care (01) | LOC: WPT 06:00 | PROVIDERS: Visit Provider Nurse Practitioner Family | DX: M54.50 Low back pain, unspecified (principal) | CPT/HCPCS: 97110; 97112; 97530 ==

== ENCOUNTER 2025-02-15 05:00 | Outpatient (RCR) | payer OTHER, SELFPAY | END 2025-03-16 23:59 | disposition home or self-care (01) | LOC: WPT 05:00 | PROVIDERS: Visit Provider Nurse Practitioner Family | DX: M54.50 Low back pain, unspecified (principal) | CPT/HCPCS: 97110; 97112; 97530 ==

== ENCOUNTER 2025-05-25 09:30 | Emergency (ER) | payer OTHER, SELFPAY ==
[2025-05-25 09:36] VITALS: BP 190/115; PULSE 97; TEMP 36.8; O2SAT 98
--- NOTE | 2025-05-25 09:37 | ECG_ITS ---
[facility]25 Pat Name: Eloina Munguai Department: Room: Gender: Female Veterans' Counselor: : 1975 Requested By: Lee Ann Deleon Order Number: [id number] Lorenz MD: Baudilio Pineda M.D. Measurements Intervals [place] Rate: 73 P: 36 [place]: 165 QRS: 5 QRSD: 102 T: 11 QT: 388 QTc: 430 Interpretive Statements SINUS RHYTHM MINIMAL VOLTAGE CRITERIA FOR LVH, CONSIDER NORMAL VARIANT [MEETS CRITERIA IN ONE OF: R(aVL), S(V1), R(V5), R(V5/V6)+S(V1)] Compared to ECG 01/22/2024 15:37:21 Sinus arrhythmia no longer present Electronically Signed On 05-25-2025 20:02:14 CDT by Baudilio Pineda M.D. [email or web address]
--- NOTE | 2025-05-25 09:37 | CTR_ITS ---
PROCEDURE INFORMATION: Exam: CT Head Without Contrast Exam date and time: 05/25/2025 9:41 AM Age: 49 years old Clinical indication: Stroke-like symptoms; Other: Symptoms of acute stroke TECHNIQUE: Imaging protocol: Computed tomography of the head without contrast. Radiation optimization: All CT scans at this facility use at least one of these dose optimization techniques: automated exposure control; mA and/or kV adjustment per patient size (includes targeted exams where dose is matched to clinical indication); or iterative reconstruction. Other technique: STROKE PROTOCOL was implemented. COMPARISON: CT head wo con* [id number] 01/22/2024 4:18 PM RADIATION DOSE METRICS: Total DLP (mGy-cm): 989.64 FINDINGS: Brain: Normal. No hemorrhage. Unremarkable white matter. No mass effect. Ventricles: No hydrocephalus or evidence of increased intracranial pressure. Paranasal sinuses: Visualized sinuses are unremarkable. No fluid levels. Mastoid air cells: Visualized mastoid air cells are well aerated. Bones: No acute abnormality identified. No acute fracture. Soft tissues: Unremarkable. Vasculature: Mild atherosclerotic calcifications are present involving the carotid artery siphons bilaterally. CT/CT head thrombolytic [id number] IMPRESSION: No acute intracranial abnormality identified. ASSESSMENT: ASPECTS ([place] Stroke Program Early CT Score) is 10.
--- NOTE | 2025-05-25 09:37 | XR_ITS ---
WS: [id number] Exam: XR chest 1V portable [id number] Date/Time of Exam: 05/25/2025 9:37 AM Reason For Exam: cva Comparison 01/22/2024. Lungs are clear and fully inflated. Cardiomediastinal silhouette unremarkable for technique. No pleural effusion. Bony structures are intact. XR/XR chest 1V portable [id number] IMPRESSION: 1. No acute cardiopulmonary finding.
--- OUTSIDE RECORDS SUMMARY | 2025-05-25 09:41 | XMS_ITS | Clinical Summary ---
Author Organization [facility] Address [address] [place] [address] Phone Care Team Providers Care Insurance Application Investigator Name Role Phone Gurpreet Montalvo MD Primary Care Provider [phone] [phone] Allergies No known active allergies Medications hydroCHLOROthiaz damaris (HYDRODIURIL) 12.5 mg tablet Take 12.5 mg by mouth daily. Active famotidine (PEPCID) 20 mg tablet Take 20 mg by mouth 2 times daily. Active phentermine (ADIPEX P) 37.5 mg tablet Take 37.5 mg by mouth daily before breakfast. Active multivitamin (DAILY-MABEL) tablet Take 1 Tablet by mouth daily. Active Saccharomyces boulardii (FLORASTOR) 250 mg Capsule Take by mouth. Active polycarbophil calcium (FIBERCON) 625 mg tablet Take 625 mg by mouth daily. Active APPLE CIDER VINEGAR ORAL Take by mouth. Active ascorbic acid, vitamin C, (VITAMIN C) 500 mg tablet Take 500 mg by mouth daily. Active furosemide (Lasix) 20 mg tablet Take 1 Tablet (20 mg) by mouth daily. 30 Tablet 3 02/20/2021 Active Active Problems Problem Noted Date Diagnosed Date Family hx of colon cancer 07/23/2016 Constipation 07/23/2016 Family history of colon canc er requiring screening colonoscopy 07/01/2016 Resolved Problems Problem Noted Date Diagnosed Date Resolved Date Screening for colon cancer 07/23/2016 0 07/23/2016 Family History Medical History Relation Name Comments Uterine Cancer Maternal Aunt Colon Cancer Maternal Grandmother NONE Ovarian Cancer Paternal Aunt Breast Cancer Neg Hx Relation Name Status Comments Daughter Alive Maternal Aunt Alive Maternal Grandmother NONE Mother Alive Paternal Aunt Alive Sister NONE Social History Tobacco Use Types Packs/Day Years Used Date Smoking Tobacco: Never Smokeless Tobacco: Never Alcohol Use Standard Drinks/Week Comments Yes 0 (1 standard drink = 0.6 oz pur e alcohol) occasionally Comments No Sex and Gender Information Value Date Recorded Sex Assigned at Not on file 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 Gender Identity Not on file Sexual Orientation Not on file Last Filed Vital Signs Vital Sign Reading Time Taken Comments Blood Pressure 140/82 02/20/2021 2:30 PM CDT Pulse 122 02/20/2021 2:19 PM CDT Temperature 36.9 C (98.4 F) 02/20/2021 2:19 PM CDT Respiratory Rate 31 02/20/2021 2:19 PM CDT Oxygen Saturation 100% 02/20/2021 2:19 PM CDT Inhaled Oxygen Concentration - - Weight 100.7 kg (222 lb) 02/20/2021 2:19 PM CDT Height 167.6 cm (5' 6 ) 02/20/2021 2:19 PM CDT Body Mass Index 35.83 02/20/2021 2:19 PM CDT Plan of Treatment Health Maintenance Due Date Last Done Comments DTAP/TDAP/TD VACCINES (1 - Tdap) 1993 HEPATITIS B VACCINES (1 of 3 - 19+ 3-dose series) 1993 FIT-DNA Q 3 years 2019 FIT/FOBT Q 1 year 2019 Flex Sig/CT Colonography Q 5 years 2019 PAP SMEAR 07/26/2019 07/26/2016 BREAST CANCER SCREENING 04/04/2021 04/04/2020, 03/03 CERVICAL CANCER SCREENING 07/26/2021 HPV/Cotest (21-29) 07/26/2021 07/26/2016 HPV/Cotest (30-65) 07/26/2021 07/26/2016 ZOSTER VACCINE (1 of 2) 2024 INFLUENZA VACCINE (#1) 2025 1, 02/20/2021, 01/18/2020, Additional history exists COLORECTAL SCREENING 07/23/2026 07/23/2016 Colorectal Cancer Screening 07/23/2026 Procedures Procedure Name Priority Date/Time Associated Diagnosis Comments MAMMO SCREEN BILAT W OR WO CAD Routine 04/04/2020 10:37 AM CDT Breast cancer screening by mammogram CERV/VAG CYTOPATH, THIN PREP IMAGR RFLX HPV Routine 07/26/2016 12:59 PM CDT Encounter for well woman exam from Last 3 Months or Most Recently Relevant to Health Maintenance Results * MAMMO SCREEN BILAT W OR WO CAD (04/04/2020 10:37 AM CDT) Anatomical Region Laterality Modality Breast Bilateral Mammography Narrative 04/05/2020 3:07 PM CDT Bilateral Mammogram Reason for Exam: Screening Comparison: Compared to: 03/03/2015 MAMMO BILAT DIAGNOSTIC Findings: Bilateral CC and MLO views were obtained. This examination was reviewed with the aid of a computer-aided detection system(CAD). Breast Composition: There are scattered areas of fibroglandular density. There are no suspicious masses, areas of architectural distortions, or microcalcifications to suggest malignancy. Asymmetry appears stable. No significant new findings since the prior mammogram(s). Impression: Negative screening mammogram. Recommendation: Routine annual follow-up Overall Assessment: Birads Category 2: Benign Kalyan MANN MAMMO ORDERABLES Final Result * CERV/VAG CYTOPATH, THIN PREP IMAGR RFLX HPV (07/26/2016 12:59 PM CDT) CASE REPORT Gynecologic Cytology Report Case: [id number] Authorizing Provider: Bernice Alcantara, Collected: 07/26/2016 1259 PLUGGING MACHINE OPERATOR-BC Ordering Location: [facility] Received: 07/29/2016 1259 First Screen: Sinai Lee Specimen: LB PAP IM W/RFLX HPV PROT, Endocervix 08/02/2016 11:36 AM T [facility] Assistant Professor Of Business Specimen Adequacy Satisfactory for evaluation, endocervical/silvestre sformation zone component absent 08/02/2016 11:36 AM CDT [facility] Assistant Professor Of Business General Categorization Negative For Intraepithelial Lesion Or Malignancy 08/02/2016 11:36 AM CDT [facility] Assistant Professor Of Business Interpretation Negative For Intraepithelial Lesion Or Malignancy 08/02/2016 11:36 AM T [facility] Verified by Sinai Lee on 08/02/2016 at 1136 CDT Comment: Routine follow-up is suggested. Assistant Professor Of Business Other Findings Shift in ai suggestive of bacterial vaginosis 08/02/2016 11:36 AM CDT [facility] GynLMPcmt Unknown 08/02/2016 11:36 AM T [facility] Assistant Professor Of Business Educational Note 08/02/2016 11:36 AM T [facility] Comment: Gynecological cytology is a screening procedure subject to both false negative and false positive results. It is most reliable when a satisfactory sample is obtained on a regular repetitive basis. Results must be interpreted in the context of historic and current clinical information. Recommend patient management according to the 2012 ASCCP Consensus Guidelines, ([place]: Cancer J Clin, 62(3); 147-172,2012) EMBEDDED IMAGE 08/02/2016 11:36 AM T [facility] Genital SWAB OF ENDOCERVIX / Unknown 07/26/2016 12:59 PM CDT 07/29/2016 12:59 PM CDT Bernice Alcantara APRN- PATHOLOGY/CYTOLOGY ORD ERABLES Final Result [facility] CLIA# [id number] [address] [place] [id number] from Last 3 Months or Most Recently Relevant to Health Maintenance Additional Health Concerns Infection Onset Date Last Indicated C Diff Comment:01/08/17 01/20/2017 01/20/2017 Advance Directives For more information, please contact: [phone] * Full Code (Latest Code Status on File) Date Activated Date Inactivated Comments 07/23/2016 1:51 PM 07/23/2016 4:16 PM Care Teams Insurance Application Investigator Relationship Specialty Start Date End Date Gurpreet Montalvo MD [address] [phone] PCP - General Family Practice 12/29/18
--- OUTSIDE RECORDS SUMMARY | 2025-05-25 09:41 | XMS_ITS | Encounter Summary ---
Author Organization [facility] Address [address] [place] [address] Care Team Providers Care Nutrition Specialist Name Role Phone Gurpreet Montalvo MD Primary Care Provider [phone] Reason for Referral * Outpatient Services (Routine) - Closed Specialty Diagnoses / Procedures Referred By Chris morrow Referred To Contact Nuclear Medicine Diagnoses Epigastric pain Procedures NM HEPATOBILIARY SCAN NM HEPATOBIL W EJECT FRACTION Lori Dugan FNP Phone: tel: fax: [facility] Nuclear Medicine[address] [address] Phone: tel: fax: Referral ID Status Reason Start Date Expiration Date V isits Requested Visits Authorized [id number] Closed [facility] TO SCHEDULE (SGF) 07/26/2016 08/26/2017 1 1 Encounter Details Date Type Department Care Team (Late st Contact Info) Description 08/13/2016 Ancillary Orders [facility] Family Medicine- [place] [address] [place] [address] Lori Dugan, PIGMENT FURNACE TENDER [address] [place] [address] Epigastric pain (Primary Dx) Social History Tobacco Use Types Packs/Day Years Used Date Smoking Tobacco: Never Smokeless Tobacco: Never Alcohol Use Standard Drinks/Week Comments Yes 0 (1 standard drink = 0.6 oz pur e alcohol) Comments No Sex and Gender Information Value Date Recorded Sex Assigned at Not on file 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 No evidence of acute or chronic gallbladder disease. 2. Normal hepatocyte function, patency of the common bile duct, and no evidence of reflux alkaline gastritis are also demonstrated. This laboratory has been accredited by the Intersocietal Commission for the Accreditation of Nuclear Medicine Laboratories (IAC Nuclear/PET). Narrative 08/13/2016 10:54 AM CDT Radionuclide Hepatobiliary Imaging with physiologic Stimulation and Quantification: Radiopharmaceutical: Tc-99m (technetium-99m) mebrofenin Dose: 5.1 mCi IV Additional Medications: Ensure Plus Dose 8 ounces oral Reason for Consultation: Postprandial epigastric abdominal pain, bloating, nausea and vomiting for evaluation of hepatobiliary function The quality of this examination is acceptable with regards to count density, processed images, data display and lack of important artifacts (including but not limited to motion and attenuation artifacts). There are no previous examinations for comparison. Following the intravenous infusion of the radiopharmaceutical agent, sequential imaging was obtained over the anterior abdomen through 60 minutes. The liver is of normal size, location, and tracer distribution. There is physiologic clearance of tracer from the blood and passage into the biliary tree, with the gallbladder first observed at 5 minutes and bowel activity at 30 minutes. The patient was subsequently administered the fatty meal over three minutes followed by dynamic imaging for the next 60 minutes. Review of dynamic images demonstrates normal emptying of tracer from the gallbladder without reflux into the intrahepatic biliary tree or stomach. Gallbladder region of interest time-activity curve derived ejection fraction is 88%, with normal being greater than 35%. Procedure Note Royce Johnson MD - 08/13/2016 Radionuclide Hepatobiliary Imaging with physiologic Stimulation and Quantification: Radiopharmaceutical: Tc-99m (technetium-99m) mebrofenin Dose: 5.1 mCi IV Additional Medications: Ensure Plus Dose 8 ounces oral Reason for Consultation: Postprandial epigastric abdominal pain, bloating, nausea and vomiting for evaluation of hepatobiliary function The quality of this examination is acceptable with regards to count density, processed images, data display and lack of important artifacts (including but not limited to motion and attenuation artifacts). There are no previous examinations for comparison. Following the intravenous infusion of the radiopharmaceutical agent, sequential imaging was obtained over the anterior abdomen through 60 minutes. The liver is of normal size, location, and tracer distribution. There is physiologic clearance of tracer from the blood and passage into the biliary tree, with the gallbladder first observed at 5 minutes and bowel activity at 30 minutes. The patient was subsequently administered the fatty meal over three minutes followed by dynamic imaging for the next 60 minutes. Review of dynamic images demonstrates normal emptying of tracer from the gallbladder without reflux into the intrahepatic biliary tree or stomach. Gallbladder region of interest time-activity curve derived ejection fraction is 88%, with normal being greater than 35%. IMPRESSION IMPRESSION: Normal Examination 1.No evidence of acute or chronic gallbladder disease. 2.Normal hepatocyte function, patency of the common bile duct, and no evidence of reflux alkaline gastritis are also demonstrated. This laboratory has been accredited by the Intersocietal Commission for the Accreditation of Nuclear Medicine Laboratories (IAC Nuclear/PET). Lori Dugan [facility] ORDERABLES Final R esult documented in this encounter Visit Diagnoses Diagnosis Epigastric pain Abdominal pain, epigastric Epigastric pain- Primary Abdominal pain, epigastric documented in this encounter Additional Health Concerns Infection Onset Date Last Indicated Resolved Time C Diff Comment:01/08/17 01/20/2017 01/20/2017 documented as of this encounter Care Teams Nutrition Specialist Relationship Specialty Start Date End Date Gurpreet Montalvo MD [address] [phone] PCP - General Family Practice 12/29/18 documented as of this encounter
--- OUTSIDE RECORDS SUMMARY | 2025-05-25 09:41 | XMS_ITS | Clinical Summary ---
Author Organization [facility] Address [address] [place] [address] Phone Care Team Providers Care Gis Mapping Technician Name Role Phone Unavailable Primary Care Provider Unavailabl e Allergies No known active allergies Medications hydroCHLOROthiaz damaris (HYDRODIURIL) 12.5 mg tablet Take 12.5 mg by mouth daily. 01/18/2020 Active famotidine (PEPCID) 20 mg tablet Take 20 mg by mouth 2 times daily. 01/18/2020 Active ascorbic acid, vitamin C, (VITAMIN C) 500 mg tablet Take 500 mg by mouth daily. 02/20/2021 Active polycarbophil calcium (FIBERCON) 625 mg tablet Take 625 mg by mouth daily. 02/20/2021 Active Saccharomyces boulardii (FLORASTOR) 250 mg Capsule Take by mouth. 02/20/2021 Active multivitamin (DAILY-MABEL) tablet Take 1 Tablet by mouth daily. 02/20/2021 Active furosemide (LASIX) 20 mg tablet Take 1 Tablet (20 mg) by mouth daily. 30 Tablet 3 02/20/2021 Active phentermine (ADIPEX P) 37.5 mg tablet Take 37.5 mg by mouth daily before breakfast. 02/20/2021 Active APPLE CIDER VINEGAR ORAL Take by mouth. 02/20/2021 Active Active Problems Problem Noted Date Diagnosed Date Constipation 07/23/2016 Family hx of colon cancer 07/23/2016 Family history of colon canc er requiring screening colonoscopy 07/01/2016 Resolved Problems Problem Noted Date Diagnosed Date Resolved Date Screening for colon cancer 07/23/2016 0 07/23/2016 Encounters Date Type Department Care Team Description 05/03/2025 External Device Data ST[facility] ABSTRACTION Provider, Abstract 04/19/2025 External Device Data ST[facility] ABSTRACTION Provider, Abstract 04/07/2025 External Device Data ST[facility] ABSTRACTION Provider, Abstract 04/06/2025 External Device Data STL ABSTRACTION Provider, Abstract 04/05/2025 External Device Data STL ABSTRACTION Provider, Abstract 03/01/2025 External Device Data STL ABSTRACTION Provider, Abstract from Last 3 Months Family History Medical History Relation Name Comments [...] = 0.6 oz pur e alcohol) Comments Unknown Sex and Gender Information Value Date Recorded Sex Assigned at Not on file 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 Gender Identity Not on file Sexual Orientation Not on file Last Filed Vital Signs Vital Sign Reading Time Taken Comments Blood Pressure 140/82 02/20/2021 2:30 PM CDT Pulse 122 02/20/2021 2:19 PM CDT Temperature 36.9 C (98.4 F) 02/20/2021 2:19 PM CDT Respiratory Rate 31 02/20/2021 2:19 PM CDT Oxygen Saturation - - Inhaled Oxygen Concentration - - Weight 100.7 [...] Q 5 years 2019 PAP SMEAR 07/26/2019 07/26/2016, 07/26/2016 BREAST CANCER SCREENING 04/04/2021 04/04/20 20, 04/04/2020, 03/03/2015 CERVICAL CANCER SCREENING 07/26/2021 HPV/Cotest (21-29) 07/26/2021 [...] RFLX HPV Routine 07/26/2016 12:59 PM CDT from Last 3 Months or Most Recently Relevant to Health Maintenance Results * MAMMO SCREEN BILAT W OR WO CAD (04/04/2020 10:37 AM CDT) Anatomical Region Laterality Modality Breast Bilateral Other Narrative 04/05/2020 3:04 PM CDT Bilateral Mammogram Reason for Exam: [...] follow-up Overall Assessment: Birads Category 2: Benign Procedure Note Alex Alonso MD - 04/03/2021 Bilateral Mammogram Reason for Exam: Screening Comparison: [...] CDT) CASE REPORT Gynecologic Cytology Report Case: [id number] Authorizing Provider: Bernice Alcantara, Collected: 07/26/2016 1259 REFRIGERATOR CAR ICER- Ordering Location: [facility] Received: 07/29/2016 1259 First Screen: Sinai Lee Specimen: LB PAP IM W/RFLX HPV PROT, Endocervix 08/02/2016 11:36 AM T [facility] Specimen Adequacy Satisfactory for evaluation, endocervical/silvestre sformation zone component absent 08/02/2016 11:36 AM T [facility] Psychologist Educational General Categorization Negative For Intraepithelial Lesion Or Malignancy 08/02/2016 11:36 AM T [facility] Interpretation Negative For Intraepithelial Lesion Or Malignancy 08/02/2016 11:36 AM T [facility] Psychologist Educational Other Findings Shift in ai suggestive of bacterial vaginosis 08/02/2016 11:36 AM T [facility] GynLMPcmt Unknown 08/02/2016 11:36 AM T [facility] Psychologist Educational Educational Note 08/02/2016 11:36 AM T [facility] Genital SWAB OF ENDOCERVIX / Unknown 07/26/2016 12:59 PM CDT 07/29/2016 12:59 PM CDT [facility] Justin Alcantara REFRIGERATOR CAR ICER- PATHOLOGY/CYTOLOGY ORD ERABLES Final Result [facility] CLIA# [id number] [address] [place] [address] [facility] CLIA # [id number] [address] [facility] [place] [address] from Last 3 Months or Most Recently Relevant to Health Maintenance Insurance [facility] FEDERAL
--- OUTSIDE RECORDS SUMMARY | 2025-05-25 09:41 | XMS_ITS | Encounter Summary ---
Author Organization [facility] Address [address] [place] [address] Care Team Providers Care Health Information Director Name Role Phone Gurpreet Montalvo MD Primary Care Provider [phone] Encounter Details Date Type Department Care Team (Late st Contact Info) Description 04/05/2020 Ancillary Orders [facility] [address] [address] Kalyan Guillen PA NO ADDRESS ON FILE Breast cancer screening by mammogram Social History Tobacco Use Types Packs/Day Years Used Date Smoking Tobacco: Never Smokeless Tobacco: Never Alcohol Use Standard Drinks/Week Comments Yes 0 (1 standard drink = 0.6 oz pur e alcohol) occasionally Comments No Sex and Gender Information Value Date Recorded Sex Assigned at Not on file 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 No / Unsure 04/04/2020 9:48 AM CDT documented as of this encounter Plan of Treatment Not on file documented as of this encounter Results * MAMMO PRIOR STUDY (03/03/2015 7:30 AM CDT) Narrative 04/05/2020 7:26 AM CDT This exam was auto finalized to allow images to be scanned to PACS. us [facility]an [facility] ORDERABLES Final Result documented in this encounter Visit Diagnoses Diagnosis Breast cancer screening by mammogram Breast cancer screening by mammogram documented in this encounter Additional Health Concerns Infection Onset Date Last Indicated Resolved Time C Diff Comment:01/08/17 01/20/2017 01/20/2017 documented as of this encounter Care Teams Health Information Director Relationship Specialty Start Date End Date Gurpreet Montalvo MD [address] [phone] PCP - General Family Practice 12/29/18 documented as of this encounter
--- OUTSIDE RECORDS SUMMARY | 2025-05-25 09:41 | XMS_ITS | Data Portability ---
Author Organization [place] - [facility] [place], ADMIN Address [address] [place] [id number] Care Team Providers Care Supervisor Powdered Sugar Name Role Phone KENDAL DUGAN Primary Care Provider Assessment Encounter Date Assessment Date Assessment LastModified by Organization Details LastModified Time 08/30/2024 08/30/2024 Impression: 1. Hematochezia. --Colonoscopy 07/23/2024 revealed small internal hemorrhoids. Moderate sigmoid diverticulosis without diverticulitis. Random colon biopsies obtained. Otherwise normal examination to the terminal ileum. Pathology no histopathological abnormality. -- capsule endoscopy 09/05/2019 the computer marked several red oliveira in the proximal and distal small bowel. Direct capsule examination revealed no significant pathology or active bleeding. Otherwise normal small bowel examination. --EGD 08/20/2019 revealed mild gastritis. Multiple sessile polyps identified in the gastric body. Random duodenal biopsies obtained. Pathology gastric polyps hyperplastic. Random stomach biopsy gastric mucosa with focal and mild nonspecific chronic inflammation, negative for ulceration. Duodenum biopsy nonspecific chronic inflammation. --Colonoscopy 08/20/2019 revealed small internal hemorrhoids. Mild sigmoid diverticulosis. Random colon biopsies obtained. Otherwise normal examination to the terminal ileum. Pathology random colon biopsy no histopathological abnormality. 2. History of diverticulitis treated with 10 days of antibiotics. 3. Family history of colon cancer maternal grandmother age 62. 4. IBS with features of constipation --Smooth move tea and magnesium (PRN). -MiraLax not effective -previously treated with Amitiza and Linzess. 5. Elevated BMI level 6. Other medical issues: Chronic headaches, hypertension, Recommendations: 1. Start trulance 3 mg PO daily for treatment of constipation. 2. Continue mag-ox 500 mg 2 tabs daily for treatment of constipation. 3. Ensure adequate daily water intake 64 oz. 4. Follow up in 8 weeks for clinical reassessment after starting trulance for constipation. [email or web address] Not available 08/30/2024 10:10:36 10/25/2024 10/25/2024 Telehealth communication performed with patient. Service was provided using telemedicine. Patient verbally consents to this services (virtual check-in). Names and roles of all persons participating in telemedicine services include: Patient is located at home and is an established patient. A total of ___ minutes were spent in consultation via [employer] Telehealth video and audio to assess and treat the following: Impression: 1. Hematochezia; clinically resolved. --Colonoscopy 07/23/2024 revealed small internal hemorrhoids. Moderate sigmoid diverticulosis without diverticulitis. Random colon biopsies obtained. Otherwise normal examination to the terminal ileum. Pathology no histopathological abnormality. -- capsule endoscopy 09/05/2019 the computer marked several red oliveira in the proximal and distal small bowel. Direct capsule examination revealed no significant pathology or active bleeding. Otherwise normal small bowel examination. --EGD 08/20/2019 revealed mild gastritis. Multiple sessile polyps identified in the gastric body. Random duodenal biopsies obtained. Pathology gastric polyps hyperplastic. Random stomach biopsy gastric mucosa with focal and mild nonspecific chronic inflammation, negative for ulceration. Duodenum biopsy nonspecific chronic inflammation. --Colonoscopy 08/20/2019 revealed small internal hemorrhoids. Mild sigmoid diverticulosis. Random colon biopsies obtained. Otherwise normal examination to the terminal ileum. Pathology random colon biopsy no histopathological abnormality. 2. History of diverticulitis treated with 10 days of antibiotics. 3. Family history of colon cancer maternal grandmother age 62. 4. IBS with features of constipation --Trulance caused diarrhea and bloating --Smooth move tea and mag-ox and fiber supplement. -MiraLax not effective -previously treated with Amitiza and Linzess. 5. Elevated BMI level 6. Other medical issues: Chronic headaches, hypertension, Recommendations: 1. Consider drinking 1/2 cup prune juice mixed 1/2 cup apple juice warmed up every morning. 2. Continue mag-ox 500 mg 2 tabs daily for treatment of constipation. 3. Continue fiber supplement daily 4. Ensure adequate daily water intake 64 oz. 5. Repeat screening colonoscopy August 2029 6. Follow up and further recommendations based on clinical course. [email or web address] Not available 10/25/2024 12:52:09 11/25/2024 11/25/2024 Impression: 1. Right upper quadrant pain that radiates to lower quadrant --History of appendectomy 2. IBS with features of constipation --Trulance caused diarrhea and bloating --Smooth move tea and mag-ox and fiber supplement. -MiraLax not effective --previously treated with Amitiza and Linzess. --Colonoscopy 07/23/2024 revealed small internal hemorrhoids. Moderate sigmoid diverticulosis without diverticulitis. Random colon biopsies obtained. Otherwise normal examination to the terminal ileum. Pathology no histopathological abnormality. 3. History of diverticulitis treated with 10 days of antibiotics. 4. Family history of colon cancer maternal grandmother age 62. 5. Elevated BMI level 6. Other medical issues: Chronic headaches, hypertension, Recommendations: 1. Obtain standard labs 2. Schedule CT scan with oral contrast abdomen and pelvis 3. Schedule gallbladder workup with HIDA scan with cck ejection fraction and ultrasound. 4. Start Levsin 0.125 mg Sublingual every 4-6 hours PRN for abdominal pain 5. Repeat screening colonoscopy August 2029 6. Follow up in 2 weeks for clinical reassessment. [email or web address] Not available 11/25/2024 17:45:15 01/06/2025 01/06/2025 49 y/o female wi th hx of HTN , morbid obesity, patient is doing well, no changes in regimen. She will follow-up as needed. [email or web address] Not available 01/14/2025 07:23:08 01/06/2025 01/06/2025 Impression: 1. Right upper quadrant pain that radiates to lower quadrant --History of appendectomy -- 12/09/2024 ultrasound no gallstones. --12/16/2024 HIDA scan gallbladder ejection fraction 87%. 2. IBS with features of constipation --Trulance caused diarrhea and bloating --Smooth move tea and mag-ox and fiber supplement. -MiraLax not effective --previously treated with Amitiza and Linzess. --Colonoscopy 07/23/2024 revealed small internal hemorrhoids. Moderate sigmoid diverticulosis without diverticulitis. Random colon biopsies obtained. Otherwise normal examination to the terminal ileum. Pathology no histopathological abnormality. 3. History of diverticulitis treated with 10 days of antibiotics. 4. Family history of colon cancer maternal grandmother age 62. 5. Elevated BMI level 6. Other medical issues: Chronic headaches, hypertension, Recommendations: 1. Continue to follow with PCP 2. See if insurance will cover motegrity 3. Ensure adequate daily water intake 64 oz minimum per day. 4. Levsin 0.125 mg Sublingual every 4-6 hours PRN for abdominal pain 5. Repeat screening colonoscopy August 2029 6. Follow up in 6 weeks for clinical reassessment. [email or web address] Not available 01/06/2025 15:56:33 Plan of Treatment Reminders Order Date Submit Date Provider Last Modified By Organization Details Last Modified Time Details Appointments None recorded. Lab HLA typing for celiac disease panel, blood - Celiac Panel: [id number] [address] (Lab)_do Not Use, [address], [place], [address], 5 10:34:02 PT/INR 2024 025 [facility] (Lab), [address], [place], [address], 5 17:27:51 TSH, serum or plasma [address] (Lab)_do Not Use, [address], [place], [address], 5 10:47:12 CBC w/ auto diff 2024 025 [facility] (Lab)_do Not Use, [address], [place], [address], 5 17:12:24 CMP, serum or plasma 2024 025 [facility] (Lab)_do Not Use, [address], [place], [address], 5 17:50:24 lipase, serum or plasma 2024 025 [facility] (Lab)_do Not Use, [address] [place], [address], 5 17:50:28 amylase, serum or plasma 2024 025 [facility] (Lab)_do Not Use, [address], [place], [address], 5 17:50:21 ESR (erythrocyt e sedimentati on rate), blood 2024 025 [facility] (Lab)_do Not Use, [address] [place], [address], 5 17:12:20 C-reactive protein, quantitativ e, serum or plasma [email or web address] (Lab)_do Not Use, [address] [place], [address], 5 10:47:12 alpha-gal ige, serum [email or web address] (Lab)_do Not Use, [address] [place], [address], 5 10:34:02 beef ige, serum [email or web address] [place] [address] (Lab)_do Not Use, [address], [place], [address], 5 10:34:03 pork ige, serum [email or web address] (Lab)_do Not Use, [address], [place], [address], 5 10:34:03 venison IgE Ab, serum [address] (Lab)_do Not Use, [address], [place], [place], [address], 5 10:34:03 Referral None recorded. Procedures None recorded. Surgeries None recorded. Imaging CT, abdomen + pelvis, w/ contrast 2024 025 [facility] (Radiology), [address], [place], [place], [address], 5 10:28:17 US, gallbladder [email or web address] (Radiology), [address], [place], [address], 5 09:49:19 NM, hepatobilia ry scan, w/ CCK 2024 025 [email or web address] [facility] [place] (Radiology), [address], [place], [address], 5 15:38:48 Medication Orders prucaloprid e 2 mg tablet 2024 025 [facility] [place], [address] [place], [address], 5 13:58:18 hyoscyamine 0.125 mg sublingual tablet 2024 025 [facility] [place], [place], [address] [place], [address], 5 15:18:07 plecanatide 3 mg tablet 2023 024 [email or web address] [id number] 6 [facility], [address], [place], [address], 09:38:35 Patient TargetsNo targets recorded. Patient Instructions Encounter Date Encounter Id Patient Instructions Last Modified By Organization Details Last Modified Time 01/06/2025 [id number] I, Delmis meng, acting as scribe, for Dr. Rene Calix, to document his verbalization of the History of Present Illness and Assessment and Plan. Delmis Melton 01/06/2024 402pm I, Dr. Rene Calix, hereby attest that I personally reviewed the documentation in the History of Present Illness, Physical Exam, and Assessment and Plan and agree the documentation accurately represents these services and the decisions I made. I also reviewed the documented the Past, Family, and Social History and made changes and/or additions as needed. Dr. Rene Calix MD. [email or web address] Not available 01/06/2025 17:02:06 Reason for Referral None Reported. Results Created Date Observation Date Name Description Value Unit Range Abnormal Flag Note LastModifiedBy Organization Detail LastModifiedTime 11/25/19 25 11/25/2024 ERYTH ROCYT E SEDIM ENTAT ION RATE AUTO sed rate auto 10.0 mm/HR <=19.9 Not Available [facility] (Lab)_do Not Use [address], [place], [address], 11/25/2024 17:12:20 11/25/19 25 11/25/2024 COMPL ETE BLOOD COUNT W/AUT O DIFFE RENTI AL WBC 9.3 K/uL 4.6-10 .9 Not Available [facility] (Lab)_do Not Use [address], [place], [address], 11/25/2024 17:12:24 11/25/19 25 11/25/2024 COMPL ETE BLOOD COUNT W/AUT O DIFFE RENTI AL RBC cnt 4.63 3.90-5 .19 Not Available [facility] (Lab)_do Not Use [address], [place], [address], 11/25/2024 17:12:24 11/25/19 25 11/25/2024 COMPL ETE BLOOD COUNT W/AUT O DIFFE RENTI AL HGB 14.5 g/dL 11.8-[address] [facility] (Lab)_do Not Use [address], [place], [address], 11/25/2024 17:12:24 11/25/19 25 11/25/2024 COMPL ETE BLOOD COUNT W/AUT O DIFFE RENTI AL HCT 42.0 % 38.1-[address] [facility] (Lab)_do Not Use [address], [place], [address], 11/25/2024 17:12:24 11/25/19 25 11/25/2024 COMPL ETE BLOOD COUNT W/AUT O DIFFE RENTI AL MCV 90.7 fL 81.1-[address] [facility] (Lab)_do Not Use [address], [place], [address], 11/25/2024 17:12:24 11/25/19 25 11/25/2024 COMPL ETE BLOOD COUNT W/AUT O DIFFE RENTI AL MCH 31.4 pg 27.1-[address] [facility] (Lab)_do Not Use [address], [place], [address], 11/25/2024 17:12:24 11/25/19 25 11/25/2024 COMPL ETE BLOOD COUNT W/AUT O DIFFE RENTI AL MCHC 34.6 32.1-3 5.9 Not Available [facility] (Lab)_do Not Use [address], [place], [address], 11/25/2024 17:12:24 11/25/19 25 11/25/2024 COMPL ETE BLOOD COUNT W/AUT O DIFFE RENTI AL RDW 13.8 % 11.6-1 4.4 Not Available [facility] (Lab)_do Not Use [address], [place], [address], 11/25/2024 17:12:24 11/25/19 25 11/25/2024 COMPL ETE BLOOD COUNT W/AUT O DIFFE RENTI AL plt cnt 311 K/uL 151-44 9 Not Available [facility] (Lab)_do Not Use [address], [place], [address], 11/25/2024 17:12:24 11/25/19 25 11/25/2024 COMPL ETE BLOOD COUNT W/AUT O DIFFE RENTI AL MPV 8.3 fL 7.5-10 .3 Not Available [facility] (Lab)_do Not Use [address], [place], [address], 11/25/2024 17:12:24 11/25/19 25 11/25/2024 COMPL ETE BLOOD COUNT W/AUT O DIFFE RENTI AL NRBC% auto 0 % no reference range Not Available [facility] (Lab)_do Not Use [address], [place], [address], 11/25/2024 17:12:24 11/25/19 25 11/25/2024 COMPL ETE BLOOD COUNT W/AUT O DIFFE RENTI AL NRBC# auto 0 /100_ WBC no reference range Not Available [facility] (Lab)_do Not Use [address], [place], [address], 11/25/2024 17:12:24 11/25/19 25 11/25/2024 .AUTO DIFF neutrophils% auto 60.0 % 38.0-6 9.0 Not Available [facility] (Lab)_do Not Use [address], [place], [address], 11/25/2024 17:12:26 11/25/19 25 11/25/2024 .AUTO DIFF lymphocytes% auto 29.4 % 22.0-5 0.0 Not Available [facility] (Lab)_do Not Use [address], [place], [address], 11/25/2024 17:12:26 11/25/19 25 11/25/2024 .AUTO DIFF monocytes% auto 9.1 % 3.0-8. 0 high Not Available [facility] (Lab)_do Not Use [address], [place], [address], 11/25/2024 17:12:26 11/25/19 25 11/25/2024 .AUTO DIFF eosinophils% auto 1.0 % 1.0-2. 0 Not Available [facility] (Lab)_do Not Use [address], [place], [address], 11/25/2024 17:12:26 11/25/19 25 11/25/2024 .AUTO DIFF basophils% auto 0.5 % 1.0-4. 0 low Not Available [facility] (Lab)_do Not Use [address], [place], [address], 11/25/2024 17:12:26 11/25/19 25 11/25/2024 .AUTO DIFF neutrophils# auto 5.6 3.0-7. 0 Not Available [facility] (Lab)_do Not Use [address], [place], [address], 11/25/2024 17:12:11/25/19 25 11/25/2024 .AUTO DIFF lymphocytes# auto 2.7 2.0-4. 0 Not Available [facility] (Lab)_do Not Use [address], [place], [address], 11/25/2024 17:12:26 11/25/19 25 11/25/2024 .AUTO DIFF monocytes# auto 0.9 1.0-1. 0 low Not Available [facility] (Lab)_do Not Use [address], [place], [address], 11/25/2024 17:12:26 11/25/19 25 11/25/2024 .AUTO DIFF eos# auto 0.1 2.0-2. 0 low Not Available [facility] (Lab)_do Not Use [address], [place], [address], 11/25/2024 17:12:26 11/25/19 25 11/25/2024 .AUTO DIFF basophils# auto 0.0 1.0-1. 0 low Not Available [facility] (Lab)_do Not Use [address], [place], [address], 11/25/2024 17:12:26 11/25/19 25 11/25/2024 PROTH ROMBI N TIME W/ INR PT 10.6 secon d(s) 9.6-12 .4 Not Available [facility] (Lab)_do Not Use [address], [place], [address], 11/25/2024 17:27:51 11/25/19 25 11/25/2024 PROTH ROMBI N TIME W/ INR INR 0.9 no reference range INR Inter preti ve Data Throm botic Disor darrin Recom mauro d INR Proph ylaxi s/lila atmen t of: Venou s Throm bosis 2.0-3 .0 Pulmo nary Embol ism 2.0-3 .0 Preve ntion of Syste tony Embol ism from: Tissu e Heart Valve s 2.0-3 .0 Myoca rdial Infar ction 2.0-3 .0 (prev ent syste tony embol ism) Valvu lar Heart Disea se 2.0-3 .0 Atria l Fibri latio n 2.0-3 .0 Mecha nical Prost hetic Valve s 2.5.3 .5 Not Available [place] [facility] (Lab)_do Not Use [address], [place], [address], 11/25/2024 17:27:51 11/25/19 25 11/25/2024 AMYLA SE LEVEL amylase 54 U/L 26-114 Not Available [facility] (Lab)_do Not Use [address], [place], [address], 11/25/2024 17:50:21 11/25/19 25 11/25/2024 COMPR EHENS LIONEL METAB OLIC PROFI LE eGFR 76 mL/mi n/1.7 3_m2 >=90 low CKD is defin ed by the prese nce of glome rular filtr ation rate (GFR) <60 mL for >3 month s and/o r evide nce of kidne y damag e (eg, struc tural abnor malit ies, histo logic abnor malit ies, album inuri a, urina ry sedim ent abnor malit ies, renal tubul ar disor ders, and/o r histo ry of kidne y trans plant ation ) for >3mon ths. This table provi ashley inter preta tion of speci fic eGFR value s. Creat inine measu remen ts, and there fore eGFR calcu latio ns, are affec marilou by very high or very low muscl e mass, muscl e injur y, a diet very high in meat, hepat ic cirrh osis, certa in drugs , etc. Stage s of CKD: Stage Descr iptio n GFR mL/mi n 1 Kidne y damag e with molly l or incre ased GFR 90 2 Kidne y damag e with mild decre ase in GFR 60 to 89 3 Moder ate decre ase in GFR 30 to 59 4 Sever e decre ase in GFR 15 to 29 5 Kidne y failu re <15 (or dialy sis) Note: GFR Molly l range >60, equat ion not valid ated for ages <18 and >70 and pregn ant women . Not Available [facility] (Lab)_do Not Use [address], [place], [address], 11/25/2024 17:50:24 11/25/19 25 11/25/2024 COMPR EHENS LIONEL METAB OLIC PROFI LE glucose 90 mg/dL 71-109 Not Available [facility] (Lab)_do Not Use [address], [place], [address], 11/25/2024 17:50:24 11/25/19 25 11/25/2024 COMPR EHENS LIONEL METAB OLIC PROFI LE BUN 15 mg/dL 8-17 Not Available [facility] (Lab)_do Not Use [address], [place], [address], 11/25/2024 17:50:24 11/25/19 25 11/25/2024 COMPR EHENS LIONEL METAB OLIC PROFI LE creatinine 0.9 mg/dL 0.6-1. 3 Not Available [facility] (Lab)_do Not Use [address], [place], [address], 11/25/2024 17:50:24 11/25/19 25 11/25/2024 COMPR EHENS LIONEL METAB OLIC PROFI LE BUN/crea ratio 16.67 6.01-1 9.99 Not Available [facility] (Lab)_do Not Use [address], [place], [address], 11/25/2024 17:50:24 11/25/19 25 11/25/2024 COMPR EHENS LIONEL METAB OLIC PROFI LE sodium 141 mmol/ L 136-14 9 Not Available [facility] (Lab)_do Not Use [address], [place], [address], 11/25/2024 17:50:24 11/25/19 25 11/25/2024 COMPR EHENS LIONEL METAB OLIC PROFI LE potassium 3.8 mEq/L 3.6-5. 2 Not Available [facility] (Lab)_do Not Use [address], [place], [address], 11/25/2024 17:50:24 11/25/19 25 11/25/2024 COMPR EHENS LIONEL METAB OLIC PROFI LE chloride 104 mmol/ L 96-109 Not Available [facility] (Lab)_do Not Use [address], [place], [address], 11/25/2024 17:50:24 11/25/19 25 11/25/2024 COMPR EHENS LIONEL METAB OLIC PROFI LE carbon dioxide 28 mmol/ L 22-33 Not Available [facility] (Lab)_do Not Use [address], [place], [address], 11/25/2024 17:50:24 11/25/19 25 11/25/2024 COMPR EHENS LIONEL METAB OLIC PROFI LE calcium 9.7 mg/dL 8.6-[address] [facility] (Lab)_do Not Use [address], [place], [address], 11/25/2024 17:50:24 11/25/19 25 11/25/2024 COMPR EHENS LIONEL METAB OLIC PROFI LE Ca corrected 9.9 mg/dL 8.6-10 .0 Not Available [facility] (Lab)_do Not Use [address], [place], [address], 11/25/2024 17:50:24 11/25/19 25 11/25/2024 COMPR EHENS LIONEL METAB OLIC PROFI LE prot total 7.5 g/dL 6.5-8. [address] [facility] (Lab)_do Not Use [address], [place], [address], 11/25/2024 17:50:24 11/25/19 25 11/25/2024 COMPR EHENS LIONEL METAB OLIC PROFI LE albumin 3.8 g/dL 3.6-4. 9 Not Available [facility] (Lab)_do Not Use [address], [place], [address], 11/25/2024 17:50:24 11/25/19 25 11/25/2024 COMPR EHENS LIONEL METAB OLIC PROFI LE globulin 4 no reference range Not Available [facility] (Lab)_do Not Use [address], [place], [place], [address], 11/25/2024 17:50:24 11/25/19 25 11/25/2024 COMPR EHENS LIONEL METAB OLIC PROFI LE albumin/glob ulin ratio 1.03 1.01-2 .49 Not Available [facility] (Lab)_do Not Use [address], [place], [address], 11/25/2024 17:50:24 11/25/19 25 11/25/2024 COMPR EHENS LIONEL METAB OLIC PROFI LE anion gap 9.0 mmol/ L 3.1-10 .9 Not Available [facility] (Lab)_do Not Use [address], [place], [place], [address], 11/25/2024 17:50:24 11/25/19 25 11/25/2024 COMPR EHENS LIONEL METAB OLIC PROFI LE alkaline phosphatase 114 U/L 51-135 Not Available [facility] (Lab)_do Not Use [address], [place], [address], 11/25/2024 17:50:24 11/25/19 25 11/25/2024 COMPR EHENS LIONEL METAB OLIC PROFI LE AST 22 U/L 16-36 Not Available [facility] (Lab)_do Not Use [address], [place], [address], 11/25/2024 17:50:24 11/25/19 25 11/25/2024 COMPR EHENS LIONEL METAB OLIC PROFI LE ALT 45 U/L 31-64 Not Available [facility] (Lab)_do Not Use [address], [place], [address], 11/25/2024 17:50:24 11/25/19 25 11/25/2024 COMPR EHENS LIONEL METAB OLIC PROFI LE bili total 0.3 mg/dL 0.1-0. 9 Not Available [facility] (Lab)_do Not Use [address], [place], [address], 11/25/2024 17:50:24 11/25/19 25 11/25/2024 COMPR EHENS LIONEL METAB OLIC PROFI LE osmol calc 282 mOsm/ kg 276-29 4 Not Available [facility] (Lab)_do Not Use [address], [place], [address], 11/25/2024 17:50:24 11/25/19 25 11/25/2024 C REACT LIONEL PROTE IN C reactive protein <0.5 mg/dL 0.0-0. 9 Not Available [facility] (Lab)_do Not Use [address], [place], [address], 11/25/2024 17:50:27 11/25/19 25 11/25/2024 LIPAS E LEVEL lipase 44 U/L 17-76 Not Available [facility] (Lab)_do Not Use [address], [place], [address], 11/25/2024 17:50:28 11/25/19 25 11/25/2024 THYRO ID STIMU LATIN G HORMO NE TSH 0.80 uIU/m L 0.35-3 .99 Not Available [facility] (Lab)_do Not Use [address] [facility], [place], [address], 11/25/2024 17:50:30 11/25/19 25 11/30/2024 ELHAM C DISEA SE PANEL - SEND OUT TO interpretati on 1 cq SEE BELOW no reference range No serol ogica l evide nce of elham c disea se. tTG IgA may molly lize in indiv idual s with elham c disea se who maint ain a glute n-lovely e diet. Consi darrin HLA DQ2 and DQ8 testi ng to rule out elham c disea se. Elham c disea se is extre ramesh rare in the absen ce of DQ2 or DQ8. Not Available [facility] (Lab)_do Not Use [address] [facility], [place], [address], 11/30/2024 14:41:10 11/25/19 25 11/30/2024 ELHAM C DISEA SE PANEL - SEND OUT TO ttgigacq <1.0 unit/ mL <15.0 no reference range Value Inter preta tion <15.0 Antib debby not detec marilou > or = 15.0 Antib debby detec marilou Not Available [facility] (Lab)_do Not Use [address] [facility], [place], [address], 11/30/2024 14:41:10 11/25/19 25 11/30/2024 ELHAM C DISEA SE PANEL - SEND OUT TO igacq 149 mg/dL 47-310 no reference range Lab test perfo rmed by: Lab Mnemo rahat: [facility] [address] [employer] [address] [place], [place] Corey Abreu MD PhD Not Available [facility] (Lab)_do Not Use [address] [place], [address], 11/30/2024 14:41:10 11/25/1912/01/2024 PORK IGE - SEND OUT CQ pork cq <0.10 <0.10 no reference range Not Available [facility] [facility] (Lab)_do Not Use [address], [place], [address], 12/01/2024 01:03:33 11/25/1912/01/2024 PORK IGE - SEND OUT CQ pork cls cq 0 >0 no reference range Lab test perfo rmed by: Lab Mnemo rahat: [facility] [address] [place], [place] Corey Abreu MD PhD Not Available [facility] (Lab)_do Not Use [address], [place], [address], 12/01/2024 01:03:33 11/25/1912/01/2024 BEEF (F27) IGE - SEND OUT CQ beef cq <0.10 <0.10 no reference range Not Available [facility] (Lab)_do Not Use [address] , [place], [address], 12/01/2024 01:03:34 11/25/1912/01/2024 BEEF (F27) IGE - SEND OUT CQ beef cls cq 0 >0 no reference range INTER PRETA TION SPECI FIC LEVEL OF ALLER GEN IgE CLASS kU/L SPECI FIC IgE ANTIB DEBBY ----- ---- ----- ---- ----- ----- ----- ----- - 0 <0.10 Absen t/Und etect able 0/1 0.10- 0.34 Very Low Level 1 0.35- 0.69 Low Level 2 0.70- 3.49 Moder ate Level 3 3.50- 17.4 High Level 4 17.5- 49.9 Very High Level 5 50-10 0 Very High Level 6 >100 Very High Level The clini trevor relev ance of aller gen resul ts of 0.10- 0.34 kU/L are undet ermin ed and inten ded for speci alist use. Aller gens denot ed with a inclu de resul ts using one or more anibal te speci fic reage nts. In those cases , the test was devel oped and its anibal tical perfo rmanc e merlin cteri stics have been deter mined by [facility]. It has not been clear ed or appro kaleigh by the U.S. Food and Drug Admin istra tion. The FDA has deter mined that such clear ance or appro alida is not neces janes. This assay has been valid ated pursu ant to the CLIA regul ation s and is used for clini trevor purpo ses. Lab test perfo rmed by: Lab Mnemo rahat: [facility] [address] [place], [place] Corey Abreu MD PhD Not Available [facility] (Lab)_do Not Use [address] [facility], [place], [address], 12/01/2024 01:03:34 11/25/19 25 12/01/2024 GALAC TOSE- ALPHA -1,3- GALAC TOSE (ALPH A-GAL galactosealp haige cq <0.10 kunit s/L <0.10 no reference range Resul ts above 0.1 kU/L indic ate an aller gen-s pecif ic IgE sensi tizat ion to galac tose- a-1,3 -gala ctose , and such patie nts are at risk for delay ed aller gic react ions follo wing beef, pork, or jones consu mptio n. Circu latin g IgE antib odies may remai n undet ectab le despi te a convi ncing clini trevor histo ry becau se these antib odies may be direc marilou martin ds aller gens revea led or alter ed durin g indus trial proce ssing , cooki ng, or diges tion and there fore do not exist in the origi nal food for which the patie nt is teste d. Somet imes indiv idual s diagn osed with chron ic urtic aria may devel op IgE antib odies direc marilou again st human thyro globu cheryl. Such antib odies may cross -reac t with the bovin e thyro globu cheryl used in Immun oCAP( R) Aller gen o215, alpha -Gal, leadi ng to a false -posi tive test resul t. A defin itive diagn osis shoul d be based on the evalu ation of both clini trevor and labor atory findi ngs and not on any singl e diagn ostic metho d. Addit ional infor patti n can be found at http: //www .phad ia.co m Test perfo rmed by [facility] [address] [place] [address] Phone : [phone] Medic al Direc tor: Hawa sylvester MD,PH D,DINH Test Repor marilou by [facility], [facility], [id number] [place], [place] Corey Abreu M.D., Ph.D. , [facility] es , CLIA [id number] Lab test perfo rmed by: Lab Mnemo rahat: [facility] [address] [place], [place] Corey Abreu MD PhD Not Available [facility] (Lab)_do Not Use [address] [facility], [place], [address], 12/01/2024 07:27:15 11/25/19 25 12/01/2024 YOLANDA ON IGE - SEND OUT CQ venisonigecq SEE BELOW no reference range ----- ----- ----T ESTS- ----- ----- --RES ULTS- ----- --UNI TS--R EF. RANGE --- Venis onCon E <0.35 kU/L <0.35 CLASS 0 CLASS INTER PRETA TION: <0.35 kU/L= 0, Below Detec tion; 0.35- 0.69 kU/L= 1, Low Posit lionel; 0.70- 3.49 kU/L= 2, Moder ate Posit lionel; 3.50- 17.49 kU/L= 3, Posit lionel; 17.50 -49.9 9 kU/L= 4, Stron g Posit lionel; >49.9 9 kU/L= 5, Very Stron g Posit lionel *This test was devel oped and its perfo rmanc e merlin cteri stics deter mined by [employer]. It has not been clear ed or appro kaleigh by the U.S. Food and Drug Admin istra tion. FLAG Inter preta tion: A = Abnor mal, H = High, L = Low Resul ts Recei kaleigh 12/01 Refer ence lab acces dimitrios: [id number] Test perfo rmed by: [employer] [address] [facility] [address] [place] [address] Phone : [phone] Lab Direc tor: Alvaro Valdivia, PhD BCLD (ABB) CLIA # [id number] Lab test perfo rmed by: Lab Mnemo rahat: [facility] [address] [place], [place] Corey Abreu MD PhD Not Available [facility] (Lab)_do Not Use [address] [place] [address] Rd, [place], [address], 12/01/2024 17:53:34 12/09/19 25 12/09/2024 CT, abdom en + pelvi s, w/ contr ast [place] [facility] [address] [place] [address]- [phone] Patien t: ELOINA MUNGUIA [id number] : [birth year] Sex:Fe male Locati on: [facility] CT Orderi ng Physic tequila: SURAJ WERNER QUALITY CONTROL MANAGER Comput ed Tomogr aphy Access ion Exam Date/T mariana 850-25 -023-0 0374 025 08:00 SENIOR PROCESS ENGINEER Reason for Exam R10.9 Unspec ified abdomi nal pain/ 11695 Report EXAM: CT ABDOME N AND PELVIS WITH CONTRA ST HISTOR Y: Abdomi nal and pelvic pain. TECHNI QUE: CT acquis ition of the abdome n and pelvis from the lower thorax throug h the pelvis follow ing IV contra st admini strati on. 2-D chavez l and sagitt al reform atted images were obtain ed from the axial source images . IV Contra st: 50 mL of Omnipa que 350 admini stered . Oral Contra st: None. CT Dose Reduct ion Techni ques Perfor med: Yes. COMPAR DIAN: Januar y 2024 FINDIN GS: Lower Thorax : Within normal limits . Liver: No mass. Mild diffus e fatty infilt ration is noted. Normal morpho logy. Biliar y: The gallbl adder and bile ducts are normal . Pancre as: No mass or eviden ce of pancre atitis . No duct dilati on. Spleen : No mass. No spleno megaly . Adrena ls: No mass. Kidney s/Uret ers: No renal mass. No calcul us or hydron ephros is. GI Tract: No bowel dilati on. No bowel wall thicke shannan. Perito tevin Cavity : No ascite s. No free air. Retrop eriton eum: No fluid collec tion. Lymph Nodes: No lympha denopa thy. Vascul ature: No aortic athero sclero tic calcif icatio ns. No aortic or iliac aneury sm. Celiac , superi or mesent henri, and inferi or mesent henri arteri es are grossl y patent . Limite d assess ment of the portal and hepati c veins and IVC is unrema rkable within limita tions of the phase of IV contra st. Pelvis : No mass. Bladde r is normal . Bones/ Soft Tissue s: No fractu re or lytic lesion . Visual ized abdomi nal wall soft tissue s are unrema rkable . IMPRES DIMITRIOS: 1. No acute findin gs All CT scans are perfor med using dose optimi zation techni ques as approp riate to the perfor med exam and includ e Comput ed Tomogr aphy Report at least one of the follow ing: Automa marilou exposu re contro l, adjust ment of the mA and/or kV accord ing to size, and the use of iterat lionel recons tructi on techni que. Final Signed by: YOLANDE DIAZ MD Signed (Elect conrado Signat ure): 2024 09:28 am SENIOR PROCESS ENGINEER [email or web address] [facility] [address] [place] [address] Rd, [place], [address], 01/06/2025 15:33:38 12/13/19 25 12/09/2024 US, [facility] ladde r [place] [facility] - [address] [place] [address]- Patien t: ELOINA MUNGUIA [id number] : [birth year] Sex:Fe male Locati on: [facility] CT Orderi ng Physic tequila: SURAJ WERNER QUALITY CONTROL MANAGER Ultras ound Access ion Exam Date/T mariana 850-25 -023-0 0373 025 07:40 SENIOR PROCESS ENGINEER Reason for Exam R10.9 Unspec ified abdomi nal pain/ [id number] Report EXAM: ULTRAS OUND ABDOME N, LIMITE D. HISTOR Y: Right upper quadra nt pain. COMPAR DIAN: 2024 FINDIN GS: Liver: Normal in size and echoge nicity with smooth contou rs. No focal mass or intrah epatic biliar y dilati on demons trated . Flow in the portal vein antegr mely. Gallbl adder: No cholel ithias is, gallbl adder wall thicke shannan, or adjace nt fluid. No sonogr aphic Alexander 's sign. Common bile duct: Normal calibe r. Pancre as: Imaged portio n is unrema rkable . IVC: Patent . Right kidney 10 x 5 x 4.7 cm. No obstru ction or mass eviden t. IMPRES DIMITRIOS: Negati ve right upper quadra nt ultras ound. Final Signed by: ELIZABETH GIBBS MD Signed (Elect conrado Signat ure): 2024 10:23 pm SENIOR PROCESS ENGINEER [facility] (Radiology) [address], [place], [address], 01/06/2025 15:33:37 12/16/19 25 12/16/2024 NM, hepat obili caleb scan, w/pha rm [place] [facility] [address] [place] [address]- [phone] Patien t: ELOINA MUNGUIA [id number] : [birth year] Sex:Fe male Locati on: [facility] [place] Orderi ng Physic tequila: SURAJ WERNER QUALITY CONTROL MANAGER Nuclea r Medici ne Access ion Exam Date/T mariana 850-25 -[id number] 0884 025 15:08 SENIOR PROCESS ENGINEER Reason for Exam Abdomi nal pain Report EXAM: HEPATO BILIAR Y SCAN. HISTOR Y: Abdomi nal pain. COMPAR DIAN: 2018. CT 2024. PROCED URE: The patien t was inject ed with 3.8 mCi of 99mTc mebrof enin intrav enousl y. Images of the abdome n were obtain ed at 5 min interv als for 1 hour. The patien t was then inject ed with 2 mcg of CCK by slow infusi on while images of the gallbl adder were obtain ed to assess gallbl adder contra ction. FINDIN GS: Sequen tial images demons trate normal uptake of tracer into the liver. Activi ty is seen in the intrah epatic biliar y ducts at about 10 minute s. The activi ty appear s in the gallbl adder at about 10 minute s. Subseq uent images demons trate increa sing activi ty in the gallbl adder. Activi ty first appear s in the small bowel at about 15 minute s. Incide ntal note is made of modest gastri c reflux . The gallbl adder ejecti on fracti on is 87%. IMPRES DIMITRIOS: 1. Normal appear ance of tracer in the gallbl adder and normal transi t of tracer into the common bile duct, duoden um and small bowel. 2. The gallbl adder ejecti on fracti on is 87% (molly l). 3. The previo us ejecti on fracti on was 93%. Final Signed by: JC ZIMMERMAN MD Signed (Elect ronic Signat ure): 2024 04:27 pm SENIOR PROCESS ENGINEER [email or web address] [facility] (Radiology) [address] [place] [address] Rd, [place], [address], 01/06/2025 15:33:39 Result Notes Documentation Provider Name and Address Organization Details Recorded Time Ct, Abdomen + Pelvis, W/ Contrast : [facility] - [address] [place] [address]- Patient: ELOINA MUNGUIA : 1975 Sex:Female Location: [facility] CT Ordering Physician: SURAJ WERNER NP Computed Tomography Accession Exam Date/Time [id number] 12/09/2024 08:00 SENIOR PROCESS ENGINEER Reason for Exam R10.9 Unspecified abdominal pain/ [id number] Report EXAM: CT ABDOMEN AND PELVIS WITH CONTRAST HISTORY: Abdominal and pelvic pain. TECHNIQUE: CT acquisition of the abdomen and pelvis from the lower thorax through the pelvis following IV contrast administration. 2-D coronal and sagittal reformatted images were obtained from the axial source images. IV Contrast: 50 mL of Omnipaque 350 administered. Oral Contrast: None. CT Dose Reduction Techniques Performed: Yes. COMPARISON: December 04, 2024 FINDINGS: Lower Thorax: Within normal limits. Liver: No mass. Mild diffuse fatty infiltration is noted. Normal morphology. Biliary: The gallbladder and bile ducts are normal. Pancreas: No mass or evidence of pancreatitis. No duct dilation. Spleen: No mass. No splenomegaly. Adrenals: No mass. Kidneys/Ureters: No renal mass. No calculus or hydronephrosis. GI Tract: No bowel dilation. No bowel wall thickening. Peritoneal Cavity: No ascites. No free air. Retroperitoneum: No fluid collection. Lymph Nodes: No lymphadenopathy. Vasculature: No aortic atherosclerotic calcifications. No aortic or iliac aneurysm. Celiac, superior mesenteric, and inferior mesenteric arteries are grossly patent. Limited assessment of the portal and hepatic veins and IVC is unremarkable within limitations of the phase of IV contrast. Pelvis: No mass. Bladder is normal. Bones/Soft Tissues: No fracture or lytic lesion. Visualized abdominal wall soft tissues are unremarkable. IMPRESSION: 1. No acute findings All CT scans are performed using dose optimization techniques as appropriate to the performed exam and include Computed Tomography Report at least one of the following: Automated exposure control, adjustment of the mA and/or kV according to size, and the use of iterative reconstruction technique. Final Signed by: YOLANDE DIAZ MD Signed (Electronic Signature): 12/09/2024 09:28 am SENIOR PROCESS ENGINEER SURAJ WERNER NP [address] [place] [address], [phone], [facility] [place] [facility] [place] 01/06/2025 15:33:38 Nm, Hepatobiliary Scan, W/pharm : [address] [address]- Patient: ELOINA MUNGUIA : 1975 Sex:Female Location: [facility] Ordering Physician: SURAJ WERNER NP Nuclear Medicine Accession Exam Date/Time [id number] 12/16/2024 15:08 SENIOR PROCESS ENGINEER Reason for Exam Abdominal pain Report EXAM: HEPATOBILIARY SCAN. HISTORY: Abdominal pain. COMPARISON: 09/09/2019. CT 12/09/2024. PROCEDURE: The patient was injected with 3.8 mCi of 99mTc mebrofenin intravenously. Images of the abdomen were obtained at 5 min intervals for 1 hour. The patient was then injected with 2 mcg of CCK by slow infusion while images of the gallbladder were obtained to assess gallbladder contraction. FINDINGS: Sequential images demonstrate normal uptake of tracer into the liver. Activity is seen in the intrahepatic biliary ducts at about 10 minutes. The activity appears in the gallbladder at about 10 minutes. Subsequent images demonstrate increasing activity in the gallbladder. Activity first appears in the small bowel at about 15 minutes. Incidental note is made of modest gastric reflux. The gallbladder ejection fraction is 87%. IMPRESSION: 1. Normal appearance of tracer in the gallbladder and normal transit of tracer into the common bile duct, duodenum and small bowel. 2. The gallbladder ejection fraction is 87% (normal). 3. The previous ejection fraction was 93%. Final Signed by: JC ZIMMERMAN MD Signed (Electronic Signature): 12/16/2024 04:27 pm SENIOR PROCESS ENGINEER SURAJ WERNER NP [address] [facility], [place], [address], [place] - [facility] [place] 01/06/2025 15:33:39 Problems Name Problem SNOMED Code Status Onset Date Resolution Date Notes Provider Name and Address Organization Details Recorded Time Family history of cancer of colon 494382799 Active 2016 Quin Rome null, [place] - [facility] [place] 7 15:48:45 Constipation 07134819 Active 2016 Quin [place] [facility] [place] 7 15:48:47 Abdominal pain 72191288 Active 2016 Quin [place] [facility] [place] 7 15:48:49 Dyspareunia 88609139 Active 2016 Quin [place] [facility] [place] 7 15:16:31 History of dysplasia of cervix 928399144 Active 2016 Usha [place]ton, [place] - [facility] [place] 7 12:04:58 Screening for malignant neoplasm of breast Active 2016 Usha Bow[place] - [facility] [place] 7 12:05:49 Screening for malignant neoplasm of cervix Active 2016 Usha Bowling [place] - [facility] [place] 7 11:17:36 Gastroesophage al reflux disease without esophagitis 326339860 Active 2018 SURAJ WERNER NP [address] [facility], [place], [address], [place] [facility] [place] 9 11:24:58 Chronic idiopathic constipation 76497142 Active 2018 SURAJ WERNER NP [address] [facility], [place], [address], [address] 9 11:25:00 Irritable bowel syndrome characterized by constipation 150342499 Active 2023 SURAJ WERNER NP [address] [facility], [facility] [address], [address] 4 10:10:19 Diverticular disease 598578610 Active 2024 SURAJ WERNER NP [address] [facility], [facility] [address], [address] 5 14:50:52 Problem Notes None recorded. Procedures Surgical History Date Name Laterality Status Provider Name and Address Organization Details Recorded Time 06/06/20 17 Date of Last Pap Smear completed Yanna Hopkins LPN [address] 06/19/2017 10:53:07 11/17/19 16 Appendectomy completed Tracie Brown LPN [address] 04/10/2017 15:32:35 11/17/19 15 Removal of ovary(s) completed Usha Bowling [address] 06/06/2017 11:56:28 11/17/19 10 Hysterectomy completed Usha Bowling [address] 06/06/2017 11:55:59 Imaging Results None recorded. Procedure Notes None recorded. Medical Equipment None Reported. Allergies Allergen ID Allergen Name Allergen Category Reaction Reaction Severity Criticality Documentation Date Start Date Code Code System Note Provider Name and Address Organization Details Recorded Time 896372 prednison e medicatio n Not available Not available Not available 01/06/2025 8640 RxNorm MARGOT Clark [address] 5 15:16:09 Medications Name Sig Start Date Stop Date Status Note LastModified by Organization Details LastModified Time acetaminoph en 325 mg tablet TAKE ONE TABLET BY MOUTH EVERY 4 HOURS NEEDED FOR FEVER OR postopera tive pain 02/22 completed Not Available Not Available Not Available doxycycline hyclate 100 mg capsule 04/10 completed Not Available Not Available Not Available tizanidine 2 mg tablet TAKE 1 TABLET BY MOUTH EVERY 6 HOURS NEEDED 01/06 completed Not Available Not Available Not Available ibuprofen 800 mg tablet TAKE ONE TABLET BY MOUTH THREE TIMES DAILY NEEDED FOR PAIN 02/22 completed Not Available Not Available Not Available fluconazole 150 mg tablet TAKE 1 TABLET BY MOUTH ONCE DAILY FOR 1 DAY 02/22 completed Not Available Not Available Not Available hydrocodone 5 mg-acetamin ophen 325 mg tablet TAKE ONE TABLET BY MOUTH EVERY 4 HOURS NEEDED FOR PAIN 02/22 completed Not Available Not Available Not Available meloxicam 15 mg tablet TAKE 1 TABLET BY MOUTH EVERY DAY active Not Available Not Available No t Available lisinopril 20 mg tablet TAKE 1 TABLET BY MOUTH DAILY 06/04 completed Not Available Not Available Not Available prednisone 20 mg tablet Take 3 tablets every day by oral route for 5 days. 01/06 completed Not Available Not Available Not Available metronidazo le 500 mg tablet TAKE 1 TABLET BY MOUTH THREE TIMES DAILY FOR 10 DAYS 11/25 completed Not Available Not Available Not Available phentermine 37.5 mg tablet TAKE 1 TABLET BY MOUTH ONCE DAILY 02/22 completed Not Available Not Available Not Available ciprofloxac in 500 mg tablet TAKE 1 TABLET BY MOUTH EVERY 12 HOURS FOR 10 DAYS 11/25 completed Not Available Not Available Not Available tramadol 50 mg tablet TAKE 1 TABLET BY MOUTH EVERY 6 HOURS FOR 5 DAYS 01/06 completed Not Available Not Available Not Available vancomycin 125 mg capsule 04/10 completed Not Available Not Available Not Available tamsulosin 0.4 mg capsule TAKE 1 CAPSULE BY MOUTH EVERY DAY 01/06 completed Not Available Not Available Not Available hyoscyamine 0.125 mg disintegrat ing tablet 04/10 completed Not Available Not Available Not Available pantoprazol e 40 mg tablet,almaz yed release 04/10 completed Not Available Not Available Not Available lisinopril 10 mg tablet TAKE 1 TABLET BY MOUTH ONCE DAILY active Not Available Not Available No t Available hyoscyamine 0.125 mg sublingual tablet DISSOLVE 1 TABLET IN MOUTH THREE TIMES DAILY NEEDED 01/06 completed Not Available Not Available Not Available promethazin e 25 mg tablet 08/17 completed Not Available Not Available Not Available hydrochloro thiazide 12.5 mg capsule TAKE 1 CAPSULE BY MOUTH ONCE DAILY 02/22 completed Not Available Not Available Not Available magnesium 500 mg (as magnesium oxide) tablet TAKE 2 TABLETS BY MOUTH ONCE DAILY DIRECTED active Not Available Not Available No t Available omeprazole 20 mg capsule,del ayed release TAKE 1 CAPSULE BY MOUTH ONCE DAILY active Not Available Not Available No t Available Pepcid 40 mg tablet Take 1 tablet twice a day by oral route as directed for 30 days. 02/16 completed Not Available Not Available Not Available hydrochloro thiazide 25 mg tablet TAKE 1 TABLET BY MOUTH ONCE DAILY active Not Available Not Available No t Available diclofenac sodium 50 mg tablet,almaz yed release TAKE 1 TABLET BY MOUTH THREE TIMES DAILY 01/06 completed Not Available Not Available Not Available estradiol 0.5 mg tablet TAKE 1 TABLET BY MOUTH ONCE DAILY active Not Available Not Available No t Available polyethylen e glycol 3350 17 gram/dose oral powder Take 17 g twice a day by oral route around the clock for 30 days. 08/17 completed Not Available Not Available Not Available estradiol 0.01% (0.1 mg/gram) vaginal cream INSERT 1 GRAM VAGINALLY TWICE WEEKLY active Not Available Not Available No t Available ondansetron 4 mg disintegrat ing tablet Place 1 tablet every 6-8 hours by transling ual route as needed. 11/25 completed Not Available Not Available Not Available amoxicillin 875 mg-potassiu m clavulanate 125 mg tablet TAKE 1 TABLET BY MOUTH EVERY 12 HOURS FOR 10 DAYS 02/22 completed Not Available Not Available Not Available azithromyci n 500 mg tablet 04/10 completed Not Available Not Available Not Available nitrofurant oin monohydrate /macrocryst als 100 mg capsule TAKE 1 CAPSULE BY MOUTH EVERY 12 HOURS FOR 7 DAYS 07/05 completed Not Available Not Available Not Available Amitiza 8 mcg capsule Take 1 capsule twice a day by oral route as directed for 30 days. 08/17 completed Not Available Not Available Not Available sodium,pota ssium,mag sulfates 17.5 gram-3.13 gram-1.6 gram oral soln TAKE 177ML BY MOUTH TWICE DAILY DIRECTED FOR 1 DAY. 08/30 completed Not Available Not Available Not Available Linzess 145 mcg capsule 04/10 completed Not Available Not Available Not Available Contrave 8 mg-90 mg tablet,exte nded release TAKE 1 TABLET BY MOUTH ONCE DAILY IN THE MORNING FOR 1 WEEK THEN 1 TWICE DAILY FOR 1 WEEK THEN 2 ONCE DAILY IN THE MORNING AND 1 ONCE DAILY IN THE EVENING FOR 1 WEEK. DO NOT EXCEED 4 PER 24 HOURS 11/25 completed Not Available Not Available Not Available Trulance 3 mg tablet TAKE 1 TABLET BY MOUTH ONCE DAILY DIRECTED 10/25 completed Not Available Not Available Not Available prucaloprid e 2 mg tablet Take 1 tablet every day by oral route as directed for 30 days, for constipat ion. 2024 active Not Available Not Available Not Avai lable Vitals Date Recorded Body height Body mass index (BMI) Body weight Oxygen saturation Oxygen saturation in Arterial blood by Pulse oximetry Heart rate Systolic And Diastolic Provider Name and Address Organization Details Last Updated DateTime 5 167.64 cm 42.2 kg/m2 058338. 05 g 97 % 97 % 105 /min 137/87 mm[Hg] Kaela Whittington LPN [address] 5 14:35:24 Date Recorded Body height Body mass index (BMI) Body weight Oxygen saturation Oxygen saturation in Arterial blood by Pulse oximetry Heart rate Systolic And Diastolic Provider Name and Address Organization Details Last Updated DateTime 5 167.64 cm 42.9 kg/m2 529621. 21 g 97 % 97 % 82 /min 122/86 mm[Hg] Latricia Newman LPN [address] 5 15:17:58 Date Recorded Body height Oxygen saturation Oxygen saturation in Arterial blood by Pulse oximetry Heart rate Body mass index (BMI) Body weight Systolic And Diastolic Provider Name and Address Organization Details Last Updated DateTime 5 167.64 cm 98 % 98 % 97 /min 42.7 kg/m2 304349. 26 g 120/82 mm[Hg] Kathleen Hamilton RN [address] 5 16:39:08 Date Recorded Body height Body mass index (BMI) Body weight Oxygen saturation Oxygen saturation in Arterial blood by Pulse oximetry Heart rate Systolic And Diastolic Provider Name and Address Organization Details Last Updated DateTime 4 167.64 cm 41.4 kg/m2 067455. 72 g 98 % 98 % 86 /min 153/85 mm[Hg] Kaela Whittington LPN [address] 4 09:35:59 Date Recorded Body height Body mass index (BMI) Body weight Provider Name and Address Organization Details Last Updated DateTime 10/25/2024 167.64 cm 41.4 kg/m2 405081.72 g Kaela Whittington LPN [place] - [facility]14 [place] 10/25/2024 09:38:15 Social History Question Answer Notes LastModified by Diana Details LastModified Time Tobacco Smoking Status Never Smoker Tracie Brown MARGOT null, [facility] [place] 04/10/2017 15:32:05 Is Blood Transfusion Acceptable In An Emergency? Yes [email or web address] Information not available 06/06/2017 What Is Your Level Of Caffeine Consumption? Occasional Soda Coffee Tea Information not available 01/06/2025 What Type Of Diet Are You Following? REGULAR Information not available 02/17/2024 Education 12 Information no t available 06/19/2017 Live Alone Or With Others? With Others [email or web address] Information not available 06/06/2017 What Was The Date Of Your Most Recent Tobacco Screening? 01/06/2025 Information not available 01/06/2025 How Many Children Do You Have? 2 [email or web address] Information not available 06/06/2017 Performs Monthly Self-breast Exam? Yes [email or web address] Information not available 06/06/2017 Do You Use Protection During Sex? No [email or web address] Information not available 06/06/2017 What Is Your Relationship Status? [email or web address] Information not available 06/06/2017 Seat Belts Used Routinely Yes [email or web address] Information not available 06/06/2017 Are You Sexually Active? Yes [email or web address] Information not available 06/06/2017 General Stress Level Low [email or web address] Information not available 06/06/2017 Do You Use Sunscreen Routinely? Yes [email or web address] Information not available 06/06/2017 Sex: Unknown Functional Status Question Answer Note LastModified by 1d4 PtyizTaigen Details LastModified Time How many times per week do you consume alcohol? Less than 1 time per week [email or web address] Information not available 10/25/2024 Do you use any illicit or recreational drugs? No Information not available 02/17/2024 Do you or have you ever used any other forms of tobacco or nicotine? No Information not available 02/17/2024 What is your level of alcohol consumption? None Information not available 01/06/2025 Are you currently employed? No Information not available 06/19/2017 What is your exercise level? Moderate Information not available 02/17/2024 Mental Status None recorded. Family History Relationship Description Onset Age of this Age Resolved Age Notes LastModified by Organization Details LastModified Time Father Diabetes mellitus Not available 2023 17:08:46 Father Heart disease Not available 2023 17:09:04 Father Hypertensive disorder Not available 2023 17:09:16 Father Leukemia Not availabl e 02/17/2024 17:09:43 Maternal Grandmother Diabetes mellitus Not available 2023 17:08:46 Maternal Grandmother Heart disease Not available 2023 17:09:04 Paternal Grandmother Diabetes mellitus Not available 2023 17:08:46 Paternal Grandmother Malignant tumor of colon Not available 2023 17:10:11 Maternal Grandfather Heart disease Not available 2023 17:09:04 Paternal Grandfather Malignant neoplastic disease Not available 2023 17:10:25 Medical History Condition Response ARTHRITIS N HEADACHES Y RHEUMATIC FEVER N USE OF BLOOD THINNERS N STROKE N HIGH CHOLESTEROL N DIABETES N GASTROINTESTINAL BLEEDING Y HEPATITIS / LIVER DISEASE N ASTHMA N PULMONARY DISEASE N SEIZURES N BOWEL PROBLEMS Y DEPRESSION (INCLUDING POST ) N HAVE YOU BEEN HOSPITALIZED OR SEEN IN [facility] ER IN THE PAST YEAR ? Y THYROID DISEASE N ULCERS Y ANEMIA N DIZZINESS Y GERD / HEARTBURN / REFLUX Y HYPERTENSION Y ANXIETY DISORDER N ANEMIA/BLOOD DISORDER N ANEURYSM N PULMONARY EMBOLISM N HEART DISEASE N CANCER N Gynecological History Statement/Question Response Abnormal Pap Y Date of Last Pap Smear 06/06/2017 Sexual Problems? Y LMP Unknown Sexually Active? Y Obstetrics History GPAL:G 2 P 2 0 0 2 Type Value Full Term 2 Living 2 Total 2 Past Encounters Encounter ID Performer Location Encounter Start Date Encounter Closed Date Diagnosis/Indication Diagnosis SNOMED-CT Code Diagnosis ICD10 Code Diagnosis Note [id number] Sandoval Archibald MD [facility] [address] [facility] [place] [address] 04/10/2017 14:58:59 04/11/2017 10:21:23 Family history of cancer of colon 225177667 Z80.0 Constipation 44926250 K5 9.00 Abdominal pain 11071798 R10.9 [id number] Sandoval Archibald MD [facility] [address] [place] [address] [place] [address] 05/06/2017 14:48:06 05/12/2017 12:26:27 Constipation 69392620 K59.00 Dyspareunia 19096609 N94 .10 [id number] IVIS HUGHES MD [facility] [employer] [address] [place] [address] [place] [address] 06/06/2017 11:30:06 06/06/2017 12:14:28 Dyspareunia 13767549 N94.10 Pelvic dyspareuni a x 2 months. Obtain pelvic US and RTC for discussion . Screening for malignant neoplasm of cervix 781758349 Z12.4 Uncertain of last pap.S/P 2009 hysterecto my, secondary to pre-cance r Obtain these records from Dr Wu (front office java developer/onc in [facility] at [facility]?) - surgery was at [facility].* Obtain ed pap. Pt recalled provider's name with Jul 2016 pap smear. If this is obtained, dispose of pap sample today. History of dysplasia of cervix 006154156 Z87.[address] Wu at [facility] in [facility], Mariel pineda was in [address] [facility] Screening for malignant neoplasm of breast 169345562 Z12.31 Mammos managed by Lillie Dugan, PCP [id number] IVIS HUGHES MD [facility] [employer] [address] [place] [address] [place] [address] 06/19/2017 10:02:49 06/19/2017 11:15:02 Dyspareunia 16883240 N94.10 Pelvic dyspareuni a x 2 months. Normal pelvic US (only left ovary remains)Di scussed this and patient is pleased that no abnormalit ies were found. Will continue working with GI and monitor dyspareuni a History of dysplasia of cervix 549756481 Z87.410 Reviewed 2009 vaginal hysterecto my op note and pathology. Performed secondary to recurrent high grade dysplasia with consistent path Recommend continued 5-year pap/HPV testing to 2030. Screening for malignant neoplasm of cervix 224558505 Z12.4 Uncertain of last pap.S/P 2009 hysterecto my, secondary to pre-cance r Reviewed 2009 vaginal hysterecto my op note and pathology. Performed secondary to recurrent high grade dysplasia with consistent path Recommend continued 5-year pap/HPV testing to 2030. [id number] Sandoval Archibald MD [facility] [address] [facility] [place] [address] 08/17/2019 16:49:39 08/17/2019 17:48:14 Family history of cancer of colon 989823465 Z80.0 Altered cordell wel function 16388697 R19.4 Hematochezia 288958459 K 92.1 Gastroesop hageal reflux disease 697055089 K21.9 Tenderness of epigastric region 133368310 R10.816 Upper abdominal pain 831 64969 R10.10 Nausea and vomiting 1693 2000 R11.2 Constipation 49148428 K5 9.00 Dyspareunia 81003628 N94 .10 [id number] Sandoval Archibald MD [facility] [address] [facility] [place] [address] 09/15/2019 10:39:41 09/15/2019 12:59:47 Chronic idiopathic constipation 40127330 K59.04 Gastroesop hageal reflux disease without esophagitis 145780841 K21.9 [id number] Sandoval Archibald MD [facility] [address] [facility] [employer] [address] 10/05/2019 10:59:39 10/05/2019 13:52:37 Gastroesophageal reflux disease without esophagitis 517491916 K21.9 Chronic id iopathic constipation 41654138 K59.04 [id number] KEVIN CANDELARIO MD [facility] [address] [facility] [place] [address] 02/23/2024 09:13:01 02/23/2024 10:05:11 Essential hypertension 08375025 I10 BP stable today. Continue current medication s. Discussed DASH diet and dietary sodium restrictio ns.Continu e/Increase dietary efforts and physical activity.A dvised pt on proper technique to take BP at home. Keep log and call in 1 week with BP. Bring BP log to next visit. Intermitte nt palpitations 377202574 R00.2 Pt having intermitte nt palpitatio ns with no associated symptoms. Previous holter showed some ST with no arrhythmia s. Continue to monitor for now. Will get thyroid labs. Dyspnea on exertion 6084 5006 R06.09 Pt having ORTIZ and lower extremity swelling. ECHO for further evaluation . Morbid obesity 520252253 E66.01 [id number] KEVIN CANDELARIO MD [facility] [address] [place] [address] 06/04/2024 15:47:32 06/07/2024 16:24:13 Essential hypertension 37303340 I10 Pt having episode of hypotensio n with fatigue. advised to cut lisinoprol in half to 5mg daily. If pt still remains low to discontinu e and just take the hctz for bp control. Goal 120/80. .Pt will follow up in 6-9 months. Will call sooner with any problems with bp. Intermitte nt palpitations 378255793 R00.2 Pt having intermitte nt palpitatio ns with no associated symptoms. Previous holter showed some ST with no arrhythmia s. Continue to monitor for now. Thyroid labs normal. Dyspnea on exertion 6084 5006 R06.09 Morbid obesity 433583205 E66.01 [id number] Sandoval Archibald MD [facility] [address] [place] [address] 07/05/2024 09:08:39 07/05/2024 12:06:51 Diverticulitis 180133381 K57.92 Hematochezia 282851915 K 92.1 Irritable bowel syndrome characterized by constipation 261875107 K58.1 [id number] Sandoval Archibald MD [facility] [address] [place] [address] 08/30/2024 09:29:36 08/30/2024 10:38:31 Irritable bowel syndrome characterized by constipation 541243059 K58.1 Family his tory of cancer of colon 706501917 Z80.0 [id number] Sandoval Archibald MD [facility] [address] [place], [place] [address] 10/25/2024 09:31:22 10/27/2024 12:49:35 Chronic idiopathic constipation 24859405 K59.04 [id number] Sandoval Archibald MD [facility] [address] [place] [address] 11/25/2024 14:23:37 11/25/2024 15:05:15 Diverticular disease 831514163 K57.90 Abdominal pain 36244607 R10.9 [id number] RENE CALIX MD [facility] [address] [place] [address] 01/06/2025 15:44:32 01/06/2025 18:06:29 Essential hypertension 60866817 I10 Pt having episode of hypotensio n with fatigue. advised to cut lisinoprol in half to 5mg daily. If pt still remains low to discontinu e and just take the hctz for bp control. Goal 120/80. . Morbid obesity 915853310 E66.01 The patient has been advised on weight loss, diet modificati on, and gentle exercise. [id number] Sandoval Archibald MD [facility] [address] [place] [address] 01/06/2025 15:07:13 01/06/2025 15:42:28 Chronic idiopathic constipation 44728287 K59.04 Irritable bowel syndrome characterized by constipation 488527731 K58.1 Abdominal pain 18660079 R10.9 Health Concerns Section Related Observation LastModified by Organization Detai ls LastModified Time None Recorded Concern Status LastModified by Organization Details LastModified Time None Recorded Advance Directives Directive None Recorded Payers Insurance Date Sequence Insurance Name Policy Number Policy Diaz Covered Member ID Diaz Member ID Guarantor Name 01/06/2025 2 [place] [employer] [facility] - [employer] (PPO) 112 Eloina Munguia [id number] Eloina Munguia 01/12/2025 1 [facility] [id number] Eloina Munguia [id number] Eloina Munguia 01/06/2025 1 [employer] (POS) Eloina Munguia [id number] Eloina Munguia 01/06/2025 1 [place] [employer] [facility] 112 Eloina Munguia [id number] Eloina Munguia Notes Date Note Type Note Provider Name and Address Organization Details Recorded Time 08/30/2024 text/html 49-year-old toñito montelongo presents to clinic for follow-up after having colonoscopy completed for hematochezia. She reports that her first week after the colonoscopy her bowel movements were great but have since slowed down. She reports that she is struggling with her bowels. She has been taking the magnesium 2 tabs daily. SURAJ WERNER NP [address] [place] [address], [phone], [facility]14 [place] 08/30/2024 10:11:01 10/25/2024 text/html 49 y/o female vi a telehealth for follow up on constipation after starting trulance. She reports that the trulance has caused her to have water stools and abdominal bloating. She has not been taking it and has been taking the mag-ox and fiber supplement. She is having a small bowel movement daily. She reports that she is working on her water intake. SURAJ WERNER NP [address] [place] [address], [phone], [facility] [place] [facility] [place] 10/25/2024 12:54:00 11/25/2024 text/html 49 y/o female presents to clinic c/o abdominal pain. She reports that about a week before Jacob she started having right upper quadrant pain that has radiated down to the lower quadrant. She thought she had diverticulitis and had her PCP give her some antibiotic's that did not help. She had fever day night. She reports that she is not eating much. She is having a bowel movement daily. SURAJ WERNER NP [address] [place] [address], [place], [address], [facility]14 [place] 11/25/2024 17:45:32 01/06/2025 text/html 49-year-old toñito montelongo presents to clinic for follow-up after having gallbladder workup completed. She reports that she had some slight improvement in her abdominal pain with the levsin. She reports that she had to to go to the ER 2 times due to the pain. She currently today has lumbar pain. She has seen her PCP that ordered a x-ray and Physical therapy. SURAJ WERNER NP [address] [place], [place] [address], [place], [address], [facility]14 [place] 01/06/2025 15:57:05 01/06/2025 text/html 49 year old toñito montelongo with a history of HTN. Here for follow up. patient has HTN, she is on HCTZ, lisinopril, stable BP. Patient arrives today feeling well. No chest pain or palpitations. Compliant with current medications. Has no cardiac complaints. TESTING-06/04/2024 TTE: EF 60-65%. Mild concentric LVH.-01/22/2024 EKG: SR @ 75bpm. LA 162ms. QRS 110ms. QTc 415ms.-05/07/2023 7d monitor: Predominant rhythm is normal sinus with some sinus tachycardia. Rare PVCs noted. 1 patient activated event that shows sinus tachycardia. RENE CALIX MD [address] [place], [place] [address], [place], [address], [facility]14 [place] 01/14/2025 07:23:30 OBGyn Episode No OBEpisode recorded.
--- NOTE | 2025-05-25 09:42 | W.ED.NEUROSD ---
HPI - Neuro Symptoms/Deficit General: Chief Complaint: Neuro Symptoms/Deficit Stated Complaint: R arm numbness, dizzy, n/v, Time Seen by Provider: 05/25/25 09:33 Source: patient Mode of arrival: ambulatory Limitations: no limitations History of Present Illness: 49-year-old female states that she is brushing her morning at 730 and suddenly started having dizziness along with some right sided weakness in her arm and numbness. She states she has had a difficulty walking due to her vertigo. She denies any headache denies any chest pain. No history of strokes in the past Associated symptoms: Deny chest pain, headache(s), nausea or vomiting Related Data Home Medications ?Medication ?Instructions ?Recorded ?Confirmed hydrochlorothiazide 25 mg tablet 25 mg PO DAILY 02/17/23 12/10/24 lisinopril 10 mg tablet 10 mg PO DAILY 02/17/23 12/10/24 omeprazole 20 mg capsule,delayed 20 mg PO DAILY 06/26/23 12/10/24 release diclofenac sodium 50 mg 50 mg PO TID 12/10/24 12/10/24 tablet,delayed release hyoscyamine sulfate 0.125 mg 0.125 mg PO QID PRN Nausea 12/10/24 12/10/24 sublingual tablet magnesium oxide 1,000 mg PO DAILY 12/10/24 12/10/24 tamsulosin 0.4 mg capsule 0.4 mg PO DAILY 12/10/24 12/10/24 Previous Rx's ?Medication ?Instructions ?Recorded estradiol 0.01% (0.1 mg/gram) 1 g vaginal .2-3 times weekly 09/08/24 vaginal cream (Estrace) #42.5 grams estradiol 0.5 mg tablet 0.5 mg PO DAILY #90 tabs 09/08/24 hyoscyamine sulfate 0.125 mg 0.125 mg sublingual TID PRN 12/10/24 sublingual tablet (Levsin/SL) dyspepsia #30 tabs nitrofurantoin 100 mg PO BID #10 caps 02/03/25 monohydrate/macrocrystals 100 mg capsule (Macrobid) meclizine 50 mg tablet 50 mg PO BID PRN dizziness #14 tabs 05/25/25 ondansetron 4 mg disintegrating 4 mg PO Q6H PRN nausea and 05/25/25 tablet vomiting #14 tabs Allergies Allergy/AdvReac Type Severity Reaction Status Date / Time No Known Allergies Allergy Verified 05/25/25 09:42 Review of Systems Const: Denies: fever(s), chills, body aches or change in appetite Eyes: Denies: blurry vision or eye discomfort ENMT: Denies: throat pain or dental pain Card: Denies: chest pain Resp: Denies: dyspnea GI: Denies: abdominal pain, nausea, vomiting or diarrhea Musc: Denies: neck pain or back pain Skin/Breast: Denies: rash Neuro: Reports: numbness in extremities, weakness in extremities and dizziness; Denies: headache(s) PFSH ED PFSH: Medical History Menopause syndrome Surgical aftercare, genitourinary system Abnormal Pap smear of cervix (~2009) Self reported--resulting in hysterectomy by a tourist cabin keeper/oncologist at [facility] in [place]. She has failed to follow-up with Pap smear since that time. No pertinent past medical history neghx: htn,dm,thyroid,dvt/pe PCP: None Surgical History History of laparoscopy (~09/09/23) Diagnostic laparoscopy with LEFT salpingo-oophorectomy for CPP and endometriosis performed by Oskar at [facility]; no adhesions or findings. History of laparoscopy (01/01/23) Diagnostic laparoscopy and fulguration of endometriosis lesion for chronic pelvic pain performed by Dr. Schmitt. Mild endometriosis at the vaginal cuff otherwise normal pelvis. H/O laparoscopy ovarian cystectomy of Right ovary at 18 y/o- performed by Dr Nieto. Hx of oophorectomy (~2011) R ovary--- laparoscopy performed by Dr. Nieto. Hx of hysterectomy (~2009) LAV bilateral salpingectomy for abnormal pap smears. Performed by Dr. Wu at [facility] tourist cabin keeper/oncologist. Hx of appendectomy (~2017) Family History Grandmother Colon cancer Maternal--dx age 50 Diabetes Maternal and Paternal Uterine cancer Paternal-dx age unknown Mother Diabetes Father Diabetes Hypertension Stroke Grandfather Diabetes Maternal and Paternal Family/Other Ovarian cancer Paternal Aunt--dx age 23 Denies family history of Heart disease Hypercholesteremia Breast cancer Thyroid disease Social History Smoking and tobacco/nicotine status: never used tobacco/nicotine NIH stroke score NIHSS: Level Of Consciousness - 1a: 0 Level Of Consciousness Questions - 1b: Both Correct Level Of Consciousness Commands - 1c: Both Correct Best Gaze - 2: Normal Visual Solorio - 3: No Visual Loss Facial Palsy - 4: Normal Motor Arm Right - 5: No Drift Motor Arm Left - 5: No Drift Motor Leg Right - 6: No Drift Motor Leg Left - 6: No Drift Limb Ataxia - 7: Absent Sensory - 8: Normal Best Language - 9: No Aphasia Dysarthia - 10: Normal Extinction And Inattention - 11: 0 Score: Total Score: 0 Physical Exam Const: COMMON NORMALS: patient oriented x3 HENMT: COMMON NORMALS: normocephalic and atraumatic HEAD & SCALP: normocephalic and atraumatic Eye: COMMON NORMALS: Equal, round and reactive pupils present and EOMs intact bilaterally PUPIL: Yes Equal, round and reactive pupils present Neck/C-Spine: COMMON NORMALS: full ROM and supple Chest: COMMONS NORMALS: normal inspection of the chest and normal palpation of entire chest wall Resp: COMMON NORMALS: normal respiratory effort, No retractions, No use of accessory muscles and clear to auscultation bilaterally AUSCULTATION: clear to auscultation bilaterally Cardio: COMMON NORMALS: regular rate, regular rhythm and No murmurs present (Cardio) RATE: regular rate RHYTHM: regular rhythm GI: COMMON NORMALS: Normal to inspection, nondistended, normoactive bowel sounds present, Soft to palpation, non-tender and no masses PALPATION: Yes Soft to palpation Extremity: COMMON NORMALS: normal to inspection and full ROM Neuro: COMMON NORMALS: patient oriented x3, moves all extremities and no focal motor deficits Psych: COMMON NORMALS: mental status grossly normal, Normal thought process present and cooperative THOUGHT PROCESS: Normal thought process present Skin: COMMON NORMALS: no rashes or lesions noted and no wounds GENERAL SKIN EXAM: no rashes or lesions noted Course Vital Signs: Vital signs: Vital Signs Temperature 98.2 F 05/25/25 09:36 Pulse Rate 77 05/25/25 11:04 Blood Pressure 146/101 05/25/25 11:04 Pulse Oximetry 98 05/25/25 11:04 Oxygen Delivery Me thod Room Air 05/25/25 09:36 MDM - Neuro Symptoms/Deficit Medical Decision Making Patient presents here with vertigo is likely peripheral in nature she feels much improved here after meclizine Zofran she is able ambulate without any difficulties she has no signs of a posterior stroke she is to follow-up with PCP and return if worsening she understands agrees to plan Medical Records I reviewed the patient's medical records. Lab Data I reviewed the patient's lab results. 05/25/25 09:54 05/25/25 09:54 Radiology Impressions Chest X-Ray 05/25/25 09:37 IMPRESSION: 1. No acute cardiopulmonary finding. Head CT 05/25/25 09:37 IMPRESSION: No acute intracranial abnormality identified. ASSESSMENT: ASPECTS ([place] Stroke Program Early CT Score) is 10. ADDENDUM: 05/25/25 1001 THIS REPORT CONTAINS FINDINGS THAT MAY BE CRITICAL TO PATIENT CARE. The findings were verbally communicated by me to DR. GRACIELA JAY via telephone conference at 9:59 AM CDT on 05/25/2025. The findings were acknowledged and understood. Head/Neck CTA 05/25/25 09:49 IMPRESSION: No acute intracranial vascular abnormality identified. IMPRESSION: No acute intracranial abnormality identified. REFERENCES: NASCET CRITERIA. The degree of stenosis in the cervical segment of the internal carotid artery is based on NASCET criteria. Normal is no stenosis. Mild is less than 50% stenosis. Moderate is 50-69% stenosis. Severe is 70% to 99% stenosis. Total occlusion is no detectable patent lumen. ADDENDUM: 05/25/25 1038 IMPRESSION: No acute extracranial vascular abnormality identified. Laboratory Results WBC 6.21 10^3/uL (3.29-11.43) 05/25/25 09:54 RBC 4.60 10^6/uL (3.85-5.65) 05/25/25 09:54 Hgb 14.10 g/dL (11.27-16.99) 05/25/25 09:54 Hct 42.4 % (36-47) 05/25/25 09:54 MCV 92.2 fl (85-98) 05/25/25 09:54 MCH 30.7 pg (27-33) 05/25/25 09:54 MCHC 33.3 g/dL (30-55) 05/25/25 09:54 RDW 13.5 % (12.1-15.1) 05/25/25 09:54 Plt Count 292 10^3/cmm (157-399) 05/25/25 09:54 MPV 9.4 fL (7.4-10.4) 05/25/25 09:54 Neut % (Auto) 49.7 % 05/25/25 09:54 Lymph % (Auto) 36.7 % 05/25/25 09:54 Izard % (Auto) 11.1 % 05/25/25 09:54 Eos % (Auto) 1.4 % 05/25/25 09:54 Baso % (Auto) 0.8 % 05/25/25 09:54 Neut # (Auto) 3.08 10^3/uL (1.8-7.7) 05/25/25 09:54 Lymph # (Auto) 2.3 10^3/uL (0.8-4.8) 05/25/25 09:54 Izard # (Auto) 0.7 10^3/uL (0.2-0.9) 05/25/25 09:54 Eos # (Auto) 0.1 10^3/uL (0.0-0.8) 05/25/25 09:54 Baso # (Auto) 0.1 10^3/uL (0.0-0.1) 05/25/25 09:54 Nucleated RBC % (auto) 0 % 05/25/25 09:54 Nucleated RBCs # 0.0 /100WBC 05/25/25 09:54 PT 12.40 SECONDS (12.1-14.9) 05/25/25 09:54 INR 0.86 (0.8-1.2) 05/25/25 09:54 APTT 26.5 SECONDS (23.9-36.7) 05/25/25 09:54 Sodium 140 mmol/L (136-145) 05/25/25 09:54 Potassium 4.3 mmol/L (3.5-5.1) 05/25/25 09:54 Chloride 105 mmol/L (98-107) 05/25/25 09:54 Carbon Dioxide 24 mmol/L (22-29) 05/25/25 09:54 Anion Gap 15.3 (5-19) 05/25/25 09:54 BUN 9 mg/dL (6-20) 05/25/25 09:54 Creatinine 0.8 mg/dL (0.5-0.9) 05/25/25 09:54 GFR Calculation 75.9 mL/min (90-130) L 05/25/25 09:54 Glucose 87 mg/dL (65-115) 05/25/25 09:54 Calculated Osmolality 288 mOsm/kg (285-295) 05/25/25 09:54 Calcium 9.4 mg/dL (8.5-10.5) 05/25/25 09:54 Total Bilirubin 0.3 mg/dL (0.15-1.2) 05/25/25 09:54 AST 23 U/L (0-32) 05/25/25 09:54 ALT 23 U/L (0-33) 05/25/25 09:54 Alkaline Phosphatase 128 U/L (35-105) H 05/25/25 09:54 Total Protein 6.9 g/dL (6.6-8.7) 05/25/25 09:54 Albumin 4.1 g/dL (3.5-5.2) 05/25/25 09:54 Globulin 2.8 g/dL (1.3-4.6) 05/25/25 09:54 Urine Color Yellow (Yellow) 05/25/25 10:10 Urine Appearance Clear (CLEAR) 05/25/25 10:10 Urine pH 7.5 (5-7) 05/25/25 10:10 Ur Specific [place] 1.013 (1.005-1.030) 05/25/25 10:10 Urine Protein Negative (Negative) 05/25/25 10:10 Urine Glucose (UA) Negative (Normal) 05/25/25 10:10 Urine Ketones Negative (Negative) 05/25/25 10:10 Urine Blood Negative (Negative) 05/25/25 10:10 Urine Nitrate Negative (Negative) 05/25/25 10:10 Urine Bilirubin Negative (Negative) 05/25/25 10:10 Urine Urobilinogen 0.2 mg/dL (Negative) 05/25/25 10:10 Ur Leukocyte Esterase Negative (Negative) 05/25/25 10:10 Urine RBC 0-2 /hpf (0-2) 05/25/25 10:10 Urine WBC 0-5 /hpf (0-5) 05/25/25 10:10 Ur Squamous Epith Cells 0-5 /hpf (0-5) 05/25/25 10:10 Amorphous Sediment Not Reportable 05/25/25 10:10 Urine Bacteria None seen /hpf (NONE) 05/25/25 10:10 Hyaline Casts 0-4 /lpf H 05/25/25 10:10 Urine Opiates Screen Negative ng/mL (Negative) 05/25/25 10:10 Ur Barbiturates Screen Negative ng/mL (Negative) 05/25/25 10:10 Ur Phencyclidine Scrn Negative ng/mL (Negative) 05/25/25 10:10 Ur Amphetamines Screen Negative ng/mL (Negative) 05/25/25 10:10 U Benzodiazepines Scrn Negative ng/mL (Negative) 05/25/25 10:10 Urine Cocaine Screen Negative ng/mL (Negative) 05/25/25 10:10 U Marijuana (THC) Screen Negative ng/mL (Negative) 05/25/25 10:10 All radiology interpretation(s) finalized by discharge EKG Data EKG 1: I personally reviewed and interpreted this EKG as follows: EKG interpretation date: 05/25/25 EKG interpretation time: 10:16 Interpretation: nsr hr [address] elevation qrs 102 qtc 414 Discharge Plan Discharge Patient Disposition: Home Clinical Impression: Vertigo Condition: Stable Prescriptions: New meclizine 50 mg tablet 50 mg PO BID PRN (Reason: dizziness) Qty: 14 0RF ondansetron 4 mg tablet,disintegrating 4 mg PO Q6H PRN (Reason: nausea and vomiting) Qty: 14 0RF No Action lisinopril 10 mg tablet 10 mg PO DAILY hydrochlorothiazide 25 mg tablet 25 mg PO DAILY omeprazole 20 mg capsule,delayed release(DR/EC) 20 mg PO DAILY estradiol [Estrace] 0.01 % (0.1 mg/gram) cream 1 g vaginal .2-3 times weekly Qty: 42.5 3RF Rx Instructions: twice a week estradiol 0.5 mg tablet 0.5 mg PO DAILY Qty: 90 3RF Rx Instructions: off 5 days; repeat cycle nitrofurantoin monohyd/m-cryst [Macrobid] 100 mg capsule 100 mg PO BID Qty: 10 0RF Rx Instructions: must administer with a meal/food tamsulosin 0.4 mg capsule 0.4 mg PO DAILY hyoscyamine sulfate 0.125 mg tablet, sublingual 0.125 mg PO QID PRN (Reason: Nausea) magnesium oxide 500 mg magnesium tablet 1,000 mg PO DAILY diclofenac sodium 50 mg tablet,delayed release (DR/EC) 50 mg PO TID hyoscyamine sulfate [Levsin/SL] 0.125 mg tablet, sublingual 0.125 mg sublingual TID PRN (Reason: dyspepsia) Qty: 30 0RF Discharge Orders: Discharge ED (Routine); Ordered 05/25/25 Ordered By: Graciela Jay Referrals: Lori Dugan, [employer] [Primary Care Provider, Nurse Practitioner] - 4-7 days Discharge Diet: Advance as tolerated Discharge Activity: Resume usual activity Patient Instructions: Vertigo (ED) Print Language: [place] Coding Level of Care Code ED [employer] for Rae Salazar
--- OUTSIDE RECORDS SUMMARY | 2025-05-25 09:42 | XMS_ITS | Clinical Summary ---
Author Organization [facility] Address [address] [place] [address] Care Team Providers Care Electronic Publisher Name Role Phone Fernanda Dee MD Primary Care Provider [phone] Allergies No known active allergies Medications No known medications Active Problems No known active problems Social History Tobacco Use Types Packs/Day Years Used Date Smoking Tobacco: Never Assessed Comments Unknown Sex and Gender Information Value Date Recorded Sex Assigned at Not on file Legal Sex Female 8:04 PM CDT Gender Identity Not on file Sexual Orientation Not on file Last Filed Vital Signs Vital Sign Reading Time Taken Comments Blood Pressure 146/90 05/29/2021 12:48 PM CDT Pulse 77 05/29/2021 12:43 PM CDT Temperature 36.9 C (98.4 F) 05/29/2021 12:43 PM CDT Respiratory Rate - - Oxygen Saturation 96% 05/29/2021 12:43 PM CDT Inhaled Oxygen Concentration - - Weight 105 kg (231 lb 12.8 oz) 05/29/2021 12:43 PM CDT Height 167.6 cm (5' 6 ) 05/29/2021 12:43 PM CDT Body Mass Index 37.41 05/29/2021 12:43 PM CDT Plan of Treatment Health Maintenance Due Date Last Done Comments Hepatitis B Vaccines (1 of 3 - 19+ 3-dose series) 1993 Td, Tdap Vaccines Adult 1993 Pap Smear 1995 Mammogram 2014 Annual Wellness 07/26/2017 07/26/2016 Colonoscopy 2019 Pneumococcal Vaccine: 50+ Ye ars (1 of 1 - PCV) 2024 Shingrix (ZOSTER RECOMBINANT ) (1 of 2) 2024 Influenza Vaccination (#1) 2025 HIB Vaccines Aged Out No longer eligi ble based on patient's age to complete this topic HPV Vaccines Aged Out No longer eligi ble based on patient's age to complete this topic Hepatitis A Vaccines Aged Out No long er eligible based on patient's age to complete this topic IPV Vaccines Aged Out No longer eligi ble based on patient's age to complete this topic Meningococcal Vaccines Aged Out No lo nger eligible based on patient's age to complete this topic RSV Mab Nirsevimab (Beyfortu s) <20 months Aged Out No longer eligible b ased on patient's age to complete this topic Rotavirus Vaccines Aged Out No longer eligible based on patient's age to complete this topic Care Teams Electronic Publisher Relationship Specialty Start Date End Date Fernanda Dee MD [address] [facility] [place] [address] PCP - General 06/25/12
--- OUTSIDE RECORDS SUMMARY | 2025-05-25 09:42 | XMS_ITS | Encounter Summary ---
Author Organization [facility] Address [address] [place] [address] Care Team Providers Care Branch Maker Name Role Phone Gurpreet Montalvo MD Primary Care Provider [phone] Encounter Details Date Type Department Care Team (Latest Contact Info) Description 07/19/2011 Ancillary Orders [facility] Pre-Registration [place] CALL TO MAKE APPOINTMENT ONLY [address] [place] [address] Conner Tamayo MD [address] [facility] [address] [place] [address] Abdominal pain, right lower quadrant; History of hysterectomy Social History Tobacco Use Types Packs/Day Years Used Date Smoking Tobacco: Never Assessed Comments Unknown Sex and Gender Information Value Date Recorded Sex Assigned at Not on file Legal Sex Female 1:00 PM FACTORER Gender Identity Not on file Sexual Orientation Not on file documented as of this encounter Plan of Treatment Not on file documented as of this encounter Results * US PELVIS COMPLETE (07/24/2011 9:11 AM CDT) Anatomical Region Laterality Modality Pelvis Ultrasound 07/24/2011 9:10 AM CDT Narrative 07/24/2011 10:35 AM CDT ULTRASOUND PELVIS (COMPLETE), Jul 24, 2011 09:10:00 AM . REASON FOR EXAM: ABDOMINAL PAIN, RIGHT LOWER QUADRANT. COMPARISON: None . TECHNIQUE: Multiplanar real-time ultrasonography of the pelvis using greenwood-scale imaging, supplemented by color Doppler as needed. . FINDINGS: . Uterus: Surgically absent. . Right ovary/adnexa: The ovary measures 2.9 x 2.0 x 2.2 cm. No adnexal mass. . Left ovary/adnexa: The ovary measures 2.5 x 2.3 x 2.3 cm. No adnexal mass. . Bladder: Normal . Peritoneum: No fluid in the cul-de-sac. . CONCLUSION Postsurgical changes of hysterectomy. Normal ovaries without adnexal mass. . Procedure Note Luis Fernando Rodriguez MD - 07/24/2011 ULTRASOUND PELVIS (COMPLETE), Jul 24, 2011 09:10:00 AM . REASON FOR EXAM: ABDOMINAL PAIN, RIGHT LOWER QUADRANT. COMPARISON: None . TECHNIQUE: Multiplanar real-time ultrasonography of the pelvis using greenwood-scale imaging, supplemented by color Doppler as needed. . FINDINGS: . Uterus: Surgically absent. . Right ovary/adnexa: The ovary measures 2.9 x 2.0 x 2.2 cm. No adnexal mass. . Left ovary/adnexa: The ovary measures 2.5 x 2.3 x 2.3 cm. No adnexal mass. . Bladder: Normal . Peritoneum: No fluid in the cul-de-sac. . CONCLUSION Postsurgical changes of hysterectomy. Normal ovaries without adnexal mass. . us Conner Tamayo MD US ORDERABLES Final Resul t * US ABDOMEN COMPLETE (07/24/2011 9:06 AM CDT) Anatomical Region Laterality Modality Abdomen Ultrasound 07/24/2011 8:00 AM CDT Narrative 07/24/2011 10:34 AM CDT ULTRASOUND OF ABDOMEN, Jul 24, 2011 08:00:00 AM . REASON FOR EXAM: ABDOMINAL PAIN, RIGHT LOWER QUADRANT. COMPARISON: None . TECHNIQUE: Multiplanar real-time ultrasonography of the abdomen using greenwood-scale imaging, supplemented by color and spectral Doppler as needed. . FINDINGS: . Liver: Normal size and contour. There is a small round echogenic focus adjacent to the gallbladder fossa which likely represents focal fatty infiltration. . Gallbladder: Normal. No stones, wall thickening or pericholecystic fluid collections. No sonographic Alexander's sign. . Biliary: No intra- or extra-hepatic ductal dilatation. Common bile duct measures 5 mm. . Spleen: Normal size, contour, and echo texture without focal lesions. Maximal dimension = 9.9 cm. . Pancreas: Incompletely visualized; unremarkable . Kidneys: No perinephric fluid, or hydronephrosis. No focal masses are identified. Right kidney measures 9.5 cm. Left kidney measures 9.7 cm. . Peritoneum: No ascites. . Vascular: The visualized aorta and IVC are within normal limits. . CONCLUSION Normal gallbladder without evidence of cholelithiasis or acute cholecystitis. No biliary ductal dilatation. . Procedure Note Luis Fernando Rodriguez MD - 07/24/2011 ULTRASOUND OF ABDOMEN, Jul 24, 2011 08:00:00 AM . REASON FOR EXAM: ABDOMINAL PAIN, RIGHT LOWER QUADRANT. COMPARISON: None . TECHNIQUE: Multiplanar real-time ultrasonography of the abdomen using greenwood-scale imaging, supplemented by color and spectral Doppler as needed. . FINDINGS: . Liver: Normal size and contour. There is a small round echogenic focus adjacent to the gallbladder fossa which likely represents focal fatty infiltration. . Gallbladder: Normal. No stones, wall thickening or pericholecystic fluid collections. No sonographic Alexander's sign. . Biliary: No intra- or extra-hepatic ductal dilatation. Common bile duct measures 5 mm. . Spleen: Normal size, contour, and echo texture without focal lesions. Maximal dimension = 9.9 cm. . Pancreas: Incompletely visualized; unremarkable . Kidneys: No perinephric fluid, or hydronephrosis. No focal masses are identified. Right kidney measures 9.5 cm. Left kidney measures 9.7 cm. . Peritoneum: No ascites. . Vascular: The visualized aorta and IVC are within normal limits. . CONCLUSION Normal gallbladder without evidence of cholelithiasis or acute cholecystitis. No biliary ductal dilatation. . us Conner Tamayo MD ORDERABLES Final Resul t documented in this encounter Visit Diagnoses Diagnosis Abdominal pain, right lower quadrant History of hysterectomy Acquired absence of both cervix and uterus Abdominal pain, right lower quadrant History of hysterectomy Acquired absence of both cervix and uterus Abdominal pain, right lower quadrant History of hysterectomy Acquired absence of both cervix and uterus documented in this encounter Additional Health Concerns Infection Onset Date Last Indicated Resolved Time C Diff Comment:01/08/17 01/20/2017 01/20/2017 documented as of this encounter Care Teams Branch Maker Relationship Specialty Start Date End Date Gurpreet Montalvo MD [address] [address] PCP - General Family Practice 12/29/18 documented as of this encounter
--- OUTSIDE RECORDS SUMMARY | 2025-05-25 09:42 | XMS_ITS | Data Portability ---
Author Organization [place] [facility] Address [address] [place] [address] Assessment Encounter Date Assessment Date Assessment LastModified by Organization Details LastModified Time 12/02/2024 12/02/2024 RTC PRN or symptoms do not improve or worsen. [email or web address] Not available 12/02/2024 17:18:13 Plan of Treatment Reminders Order Date Submit Date Provider Last Modified By Organization Details Last Modified Time Details Appointments None recorded. Lab CBC w/ diff 2024 025 [facility], [address] [place], [address], 18:29:01 CMP, serum or plasma 2024 025 [facility], [address] [place], [address], 18:29:03 lipid panel, serum 2024 025 [facility], [address] [place], [address], 5 18:29:05 HbA1c (hemoglobin A1c), blood 2024 025 [facility], [address] [place], [address], 5 13:25:30 lyme disease igg+igm, serum, reflex western blot 2024 025 [facility], [address], [place], [address], 5 13:25:26 ehrlichia chaffeensis IgG + IgM panel, titer, unspecified specimen [address] [facility], [address], [place], [address], 5 13:26:57 ehrlichia chaffeensis Ab, titer, IFA, serum 2024 025 [facility], [address], [place], [address], 13:25:29 unlisted lab - francisella tularensis antibody, serum [address] [facility], [address], [place], [address], 13:27:47 pork ige, serum 2024 025 [facility], [address], [place], [address], 13:25:25 unlisted lab - allergen, food, beef IgE 2024 025 [facility], [address], [place], [address], 5 13:25:27 jones IgG Ab, QN, serum 2024 025 [facility], [address], [place], [address], 5 13:25:23 alpha-gal ige, serum 2024 025 [email or web address] [facility], [address], [place], [address], 5 12:13:04 babesia microti igg+igm Ab, serum 2024 025 [email or web address] [facility], [address], [place], [address], 5 13:28:17 neisseria gonorrhoeae , culture, unspecified specimen 2024 025 [facility]), [address] [place], [address], 5 06:44:54 CT, DNA, qual, PCR, unspecified specimen 2024 025 [place] [facility] ([facility]), [address] [address], [place], [address], 5 06:44:55 CBC w/ diff 2024 025 [facility], [address], [place], [address], 5 11:50:38 urinalysis panel, auto 2024 025 [facility], [place] [place], [address], [place], [address], 5 13:04:11 amylase, QN, blood 2024 025 [facility], [address], [place], [address], 5 11:50:41 lipase, serum or plasma 2024 025 [facility], [address], [place], [address], 5 11:50:42 C-reactive protein, quantitativ e, serum or plasma 2024 025 [facility], [address], [place], [address], 5 11:50:40 CMP, serum or plasma 2024 025 [facility], [address], [place], [address], 5 11:50:43 bacterial vaginosis + vaginitis panel, vaginal 2024 025 [place] [facility] ([facility]), [address], [address] [address], [place], [address], 06:44:53 Referral physical therapist referral - [facility] please Call [phone] with questions/c oncerns.fax :[phone] Taty CLEANINGN/Case Management 2024 025 [email or web address] [facility], [address], [place], [address], 5 17:46:05 Procedures None recorded. Surgeries None recorded. Imaging MRI, lumbar spine, w/o contrast - Call with questions/c oncerns.fax : Taty CLEANINGN/Case Management [email or web address] [place] [address], [address], [place], [address], 5 09:20:33 XR, lumbosacral spine, 2 or 3 view 2024 025 [facility], [address], [address], [place], [address], 13:30:57 Medication Orders doxycycline hyclate 100 mg tablet 2024 025 [place] [facility] [place], [address] [place], [address], 5 05:01:35 meloxicam 15 mg tablet 2024 025 [place] [facility] [place], [address] [place], [address], 12:03:49 prednisone 20 mg tablet 2024 025 [place] [place], [address] [place], [address], 12:03:35 tramadol 50 mg tablet 2024 025 [place] [place], [address] [place], [address], 13:29:57 tizanidine 2 mg tablet 2024 025 [place] [facility] [place], [address] [place], [address], 5 12:11:24 Patient TargetsNo targets recorded. Patient Instructions Encounter Date Encounter Id Patient Instructions Last Modified By Organization Details Last Modified Time 12/13/2024 [id number] heart-healthy diet: care instructions Not available 12/13/2024 12:21:46 walking for exercise: care instructions Not available 12/13/2024 12:21:46 12/23/2024 [id number] heart-healthy diet: care instructions Not available 12/23/2024 15:47:32 walking for exercise: care instructions Not available 12/23/2024 15:47:32 04/27/2025 [id number] heart-healthy diet: care instructions Not available 04/27/2025 12:12:56 walking for exercise: care instructions Not available 04/27/2025 12:12:56 Reason for Referral Physical Therapist Referral for Low back pain [facility] pleaseCall [phone] with questions/concerns.fax:[phone] Taty FROST/Case Management Referring Physician: Lori Dugan, Family Medicine, Encounter Date: 12/23/2024 Results Created Date Observation Date Name Description Value Unit Range Abnormal Flag Note LastModifiedBy Organization Detail LastModifiedTime 11/24/1911/24/2024 urina lysis panel , auto FLORENTIN Negati ve Not Available [facility] [address] [place], [address], 11/24/2024 10:55:14 11/24/19 25 11/24/2024 urina lysis panel , auto NIT Negati ve Not Available [facility] [address] [place], [address], 11/24/2024 10:55:14 11/24/1911/24/2024 urina lysis panel , auto URO 0.2 Not Available [facility] [address] [place], [address], 11/24/2024 10:55:14 11/24/19 25 11/24/2024 urina lysis panel , auto PRO Negati ve Not Available [facility] [address] [place], [address], 11/24/2024 10:55:14 11/24/19 25 11/24/2024 urina lysis panel , auto pH 6.5 Not Available [address], [address], 11/24/2024 10:55:14 11/24/19 25 11/24/2024 urina lysis panel , auto BLO Negati ve Not Available [address], [address], 11/24/2024 10:55:14 11/24/19 25 11/24/2024 urina lysis panel , auto SG 1.020 Not Available [address], [address], 11/24/2024 10:55:14 11/24/19 25 11/24/2024 urina lysis panel , auto KET Negati ve Not Available [address], [address], 11/24/2024 10:55:14 11/24/19 25 11/24/2024 urina lysis panel , auto PAT Negati ve Not Available [address], [address], 11/24/2024 10:55:14 11/24/19 25 11/24/2024 urina lysis panel , auto GLU Negati ve Not Available [address], [address], 11/24/2024 10:55:14 12/02/19 25 12/03/2024 CBC WBC 7.6 x10(3 )/uL 3.1 - 10.3 Not Available [facility] [address], [place], [address], 12/03/2024 11:50:38 12/02/19 25 12/03/2024 CBC RBC 4.75 x10(6 )/uL 3.20 - 4.60 high Not Available [facility] [address] [place], [address], 12/03/2024 11:50:38 12/02/19 25 12/03/2024 CBC HGB 14.2 g/dL 9.9 - 13.6 high Not Available [facility] [address] [place], [address], 12/03/2024 11:50:38 12/02/19 25 12/03/2024 CBC HCT 42.8 % 30.2 - 42.3 high Not Available [facility] [address] [place], [address], 12/03/2024 11:50:38 12/02/19 25 12/03/2024 CBC MCV 90.1 fL 78.6 - 102.2 Not Available [facility] [address] [place], [address], 12/03/2024 11:50:38 12/02/19 25 12/03/2024 CBC MCH 29.9 pg 25.2 - 34.7 Not Available [facility] [address] [place], [address], 12/03/2024 11:50:38 12/02/19 25 12/03/2024 CBC MCHC 33.2 g/dL 31.3 - 35.4 Not Available [facility] [address] [place], [address], 12/03/2024 11:50:38 12/02/19 25 12/03/2024 CBC platelet count 319 x10(3 )/uL 128 - 434 Not Available [facility] [address] [place], [address], 12/03/2024 11:50:38 12/02/19 25 12/03/2024 CBC neut% 61.8 % 43.7 - 77.1 Not Available [facility] [address] [place], [address], 12/03/2024 11:50:38 12/02/19 25 12/03/2024 CBC lymph% 30.8 % 15.0 - 45.8 Not Available [facility] [address] [place], [address], 12/03/2024 11:50:38 12/02/19 25 12/03/2024 CBC mxd% 7.4 % 1.3 - 25.9 Not Available [facility] [address] [place], [address], 12/03/2024 11:50:38 12/02/19 25 12/03/2024 CBC neut# 4.7 x10(3 )/uL 1.6 - 6.9 Not Available [facility] [address] [place], [address], 12/03/2024 11:50:38 12/02/19 25 12/03/2024 CBC lymph# 2.3 x10(3 )/uL 0.9 - 2.8 Not Available [facility] [address], [place], [place], [address], 12/03/2024 11:50:38 12/02/19 25 12/03/2024 CBC mxd# 0.6 x10(3 )/uL 0.1 - 1.6 Not Available [facility] [address], [place], [address], 12/03/2024 11:50:38 12/02/19 25 12/03/2024 CBC RDW-SD 47.1 fL 35.3 - 48.9 Not Available [facility] [address] [place], [address], 12/03/2024 11:50:38 12/02/19 25 12/03/2024 CBC RDW-CV 13.5 % 10.6 - 15.7 Not Available [facility] [address] [place], [address], 12/03/2024 11:50:38 12/02/19 25 12/03/2024 CBC MPV 10.1 fL 8.5 - 12.4 Not Available [facility] [address] [place], [address], 12/03/2024 11:50:38 12/02/19 25 12/03/2024 CRP CRP 7.4 mg/L 0.0 - 10.0 Not Available [facility] [address] [place], [address], 12/03/2024 11:50:39 12/02/19 25 12/03/2024 AMYLA SE amylase 57 U/L 30 - 110 Not Available [facility] [address] [place], [address], 12/03/2024 11:50:41 12/02/19 25 12/03/2024 LIPAS E lipase 112 U/L 23 - 300 Not Available [facility] [address] [place], [address], 12/03/2024 11:50:42 12/02/19 25 12/03/2024 COMPR EHENS LIONEL METAB OLIC PANEL (CMP) albumin 4.1 g/dL 3.5 - 5.0 Not Available [facility] [address] [place], [address], 12/03/2024 11:50:43 12/02/19 25 12/03/2024 COMPR EHENS LIONEL METAB OLIC PANEL (CMP) chloride 107 mmol/ L 98 - 107 Not Available [facility] [address] [place], [address], 12/03/2024 11:50:43 12/02/19 25 12/03/2024 COMPR EHENS LIONEL METAB OLIC PANEL (CMP) creatinine 0.79 mg/dL 0.52 - 1.04 Not Available [facility] [address] [place], [address], 12/03/2024 11:50:43 12/02/19 25 12/03/2024 COMPR EHENS LIONEL METAB OLIC PANEL (CMP) eco2 26 mmol/ L 22 - 30 Not Available [facility] [address] [place], [address], 12/03/2024 11:50:43 12/02/19 25 12/03/2024 COMPR EHENS LIONEL METAB OLIC PANEL (CMP) glucose 100 mg/dL 74 - 106 Not Available [facility] [address] [place], [address], 12/03/2024 11:50:43 12/02/19 25 12/03/2024 COMPR EHENS LIONEL METAB OLIC PANEL (CMP) potassium 4.40 mmol/ L 3.50 - 5.10 Not Available [facility] [address] [place], [address], 12/03/2024 11:50:43 12/02/19 25 12/03/2024 COMPR EHENS LIONEL METAB OLIC PANEL (CMP) alkaline phos 119 U/L 38 - 126 Not Available [facility] [address] [place], [address], 12/03/2024 11:50:43 12/02/19 25 12/03/2024 COMPR EHENS LIONEL METAB OLIC PANEL (CMP) sodium 140 mmol/ L 137 - 145 Not Available [facility] [address] [place], [address], 12/03/2024 11:50:43 12/02/19 25 12/03/2024 COMPR EHENS LIONEL METAB OLIC PANEL (CMP) total bilirubin 0.2 mg/dL 0.2 - 1.3 Not Available [facility] [address] [place], [address], 12/03/2024 11:50:43 12/02/19 25 12/03/2024 COMPR EHENS LIONEL METAB OLIC PANEL (CMP) total protein 7.4 g/dL 6.3 - 8.2 Not Available [facility] [address] [place], [address], 12/03/2024 11:50:43 12/02/19 25 12/03/2024 COMPR EHENS LIONEL METAB OLIC PANEL (CMP) ALT 37 U/L 0 - 35 high Not Available [facility] [address] [place], [address], 12/03/2024 11:50:43 12/02/19 25 12/03/2024 COMPR EHENS LIONEL METAB OLIC PANEL (CMP) BUN/urea 15 mg/dL 7 - 17 Not Available [facility] [address] [place], [address], 12/03/2024 11:50:43 12/02/19 25 12/03/2024 COMPR EHENS LIONEL METAB OLIC PANEL (CMP) eGFR 91 mL/mi n/1.7 3m2 >60 *eGFR Refer ence Value s Molly l: >60 mL/mi n/1.7 3m2 Abnor mal: < 60 mL/mi n/1.7 3m2 Not Available [facility] [address] [place], [address], 12/03/2024 11:50:43 12/02/19 25 12/03/2024 COMPR EHENS LIONEL METAB OLIC PANEL (CMP) A/G ratio 1.3 (calc ) 1.0 - 2.5 Not Available [facility] [address] [place], [address], 12/03/2024 11:50:43 12/02/19 25 12/03/2024 COMPR EHENS LIONEL METAB OLIC PANEL (CMP) globulin 3.3 g/dL_ (calc ) 1.9 - 3.7 Not Available [facility] [address] [place], [address], 12/03/2024 11:50:43 12/02/19 25 12/03/2024 COMPR EHENS LIONEL METAB OLIC PANEL (CMP) calcium 9.9 mg/dL 8.4 - 10.2 Not Available [facility] [address] [place], [address], 12/03/2024 11:50:43 12/02/19 25 12/03/2024 COMPR EHENS LIONEL METAB OLIC PANEL (CMP) AST 32 U/L 14 - 36 Not Available [facility] [address] [place], [address], 12/03/2024 11:50:43 12/02/19 25 12/03/2024 VAGIN ITIS PANEL trichomonas vaginalis, aptima (panther) NOT DETECT ED normal Trich omona s vagin bear: DNA testi ng perfo rmed by [employer] marilou Ampli ficat ion (TMA) These resul ts shoul d be inter prete d in light of all clini trevor and labor atory findi ngs. This assay is highl y accur ate, but rare false posit lionel and negat lionel resul ts may occur . Posit lionel resul ts in low preva lence popul ation s may requi re re-ev aluat ion. A negat lionel resul t does not precl ude a possi ble infec tion due to a speci men inade quacy or sampl ing error . Test perfo rmed by [facility] d/b/[facility], [address], [place] [address] , Angie Roth ra, DO, Labor atory Direc tor. Anam perea a vagin bear, Ibis da speci es: Genom ic DNA is isola marilou from patie nt speci mens by stand eyad labor atory techn iques and anibal zed using custo m OpenA rray plate s, perfo rmed on the Quant Studi o 12K Flex Real Time PCR syste m. A posit lionel resul t is provi ded for patho genic bacte arely, virus and/o r funga l speci es based on detec tion of ampli ficat ion produ cts. Molly l vagin al ai resul ts of Molly l or [place] marilou are deter mined by calcu latin g the ratio of the organ ism to the total bacte arely prese nt in the speci men, and terrie ring that ratio to a PathG roup patie nt popul ation . Overa ll resul ts of Molly l, Borde rline and Abnor mal are deter mined using a proba bilit y model which was devel oped by an exten sive anibal sis and integ ratio n of clini trevor thres holds for marke r organ isms on a large set of sympt omati c & asymp tomat ic speci mens. Patie nt popul ation s with diffe rent demog raphi cs from the PathG roup model popul ation may have diffe rent indic ator organ isms with diffe rent relat lionel ratio s, which would influ ence the final resul ts. Resul ts shoul d be inter prete d in the samia xt of all clini trevor and labor atory findi ngs. The test was devel oped and its perfo rmanc e merlin cteri stics deter mined by [facility], [facility] d/b/a [facility]. It has not been clear ed or appro kaleigh by the U.S. Food and Drug Admin istra tion. The FDA has deter mined that such clear ance or appro alida is not neces janes. Perti nent refer ence inter vals are avail able from the labor atory on reque st. Test( s) perfo rmed by [facility], [place], d/b/a [facility], [address], [place] [address] , Angie Roth ra, DO, Labor atory Direc tor. Not Available [facility]) [address], [place], [address], 12/06/2024 06:44:53 12/02/19 25 12/04/2024 VAGIN ITIS PANEL nicole sp. NOT DETECT ED normal Trich omona s vagin bear: DNA testi ng perfo rmed by [employer] marilou Ampli ficat ion (TMA) These resul ts shoul d be inter prete d in light of all clini trevor and labor atory findi ngs. This assay is highl y accur ate, but rare false posit lionel and negat lionel resul ts may occur . Posit lionel resul ts in low preva lence popul ation s may requi re re-ev aluat ion. A negat lionel resul t does not precl ude a possi ble infec tion due to a speci men inade quacy or sampl ing error . Test perfo rmed by [facility], [facility], d/b/a [facility], [address], [place] [address] , Angie Roth ra, DO, Labor atory Direc tor. Kdn erell a vagin bear, Ibis da speci es: Genom ic DNA is isola marilou from patie nt speci mens by stand eyad labor atory techn iques and anibal zed using custo m OpenA rray plate s, perfo rmed on the Quant Studi o 12K Flex Real Time PCR syste m. A posit lionel resul t is provi ded for patho genic bacte arely, virus and/o r funga l speci es based on detec tion of ampli ficat ion produ cts. Molly l vagin al ai resul ts of Molly l or [place] marilou are deter mined by calcu latin g the ratio of the organ ism to the total bacte arely prese nt in the speci men, and terrie ring that ratio to a Path[facility] roup patie nt popul ation . Overa ll resul ts of Molly l, Borde rline and Abnor mal are deter mined using a proba bilit y model which was devel oped by an exten sive anibal sis and integ ratio n of clini trevor thres holds for marke r organ isms on a large set of sympt omati c & asymp tomat ic speci mens. Patie nt popul ation s with diffe rent demog raphi cs from the Path[facility] roup model popul ation may have diffe rent indic ator organ isms with diffe rent relat lionel ratio s, which would influ ence the final resul ts. Resul ts shoul d be inter prete d in the samia xt of all clini trevor and labor atory findi ngs. The test was devel oped and its perfo rmanc e merlin cteri stics deter mined by [facility] d/b/[facility]. It has not been clear ed or appro kaleigh by the U.S. Food and Drug Admin istra tion. The FDA has deter mined that such clear ance or appro alida is not neces janes. Perti nent refer ence inter vals are avail able from the labor atory on reque st. Test( s) perfo rmed by [facility], [facility], d/b/a Path [facility], [address], [place] [address] , Angie Roth ra, , Labor atory Dire tor. Not Available [facility]) [address], [place], [address], 12/06/2024 06:44:53 12/02/19 25 12/04/2024 VAGIN ITIS PANEL gardnerella vaginalis NOT DETECT ED normal Trich omona s vagin bear: DNA testi ng perfo rmed by [employer] marilou Ampli ficat ion (TMA) These resul ts shoul d be inter prete d in light of all clini trevor and labor atory findi ngs. This assay is highl y accur ate, but rare false posit lionel and negat lionel resul ts may occur . Posit lionel resul ts in low preva lence popul ation s may requi re re-ev aluat ion. A negat lionel resul t does not precl ude a possi ble infec tion due to a speci men inade quacy or sampl ing error . Test perfo rmed by [facility], [facility], d/b/a [facility], [address], [place] [address] , Angie Roth ra, , Labor atory Dire tor. Gardn erell a vagin bear, Ibis da speci es: Genom ic DNA is isola marilou from patie nt speci mens by stand eyad labor atory techn iques and anibal zed using custo m OpenA rray plate s, perfo rmed on the Quant Studi o 12K Flex Real Time PCR syste m. A posit lionel resul t is provi ded for patho genic bacte arely, virus and/o r funga l speci es based on detec tion of ampli ficat ion produ cts. Molly l vagin al ai resul ts of Molly l or [place] marilou are deter mined by calcu latin g the ratio of the organ ism to the total bacte arely prese nt in the speci men, and terrie ring that ratio to a PathG roup patie nt popul ation . Overa ll resul ts of Molly l, Borde rline and Abnor mal are deter mined using a proba bilit y model which was devel oped by an exten sive anibal sis and integ ratio n of clini trevor thres holds for marke r organ isms on a large set of sympt omati c & asymp tomat ic speci mens. Patie nt popul ation s with diffe rent demog raphi cs from the PathG roup model popul ation may have diffe rent indic ator organ isms with diffe rent relat lionel ratio s, which would influ ence the final resul ts. Resul ts shoul d be inter prete d in the samia xt of all clini trevor and labor atory findi ngs. The test was devel oped and its perfo rmanc e merlin cteri stics deter mined by [facility], [facility] d/b/a [facility]. It has not been clear ed or appro kaleigh by the U.S. Food and Drug Admin istra tion. The FDA has deter mined that such clear ance or appro alida is not neces janes. Perti nent refer ence inter vals are avail able from the [employer] atory on reque st. Test( s) perfo rmed by [facility], d/b/a [facility], [address] [address] , Angie Roth ra, DO, Labor atory Direc tor. Not Available [facility] ([facility]) [address], [place], [address], 12/06/2024 06:44:53 12/02/19 25 12/03/2024 NEISS ERIA GONOR RHOEA E neisseria gonorrhoeae, aptima NOT DETECT ED normal DNA testi ng perfo rmed by [employer] marilou Ampli ficat ion (TMA) . Resul ts shoul d be inter prete d in conju nctio n with patie nt histo ry and clini trevor prese ntati on. This assay is highl y accur ate, but rare false posit lionel and negat lionel resul ts may occur . Posit lionel resul ts in low preva lence popul ation s may requi re re-ev aluat ion. A negat lionel resul t does not precl ude a possi ble infec tion due to a speci men inade quacy or sampl ing error . Test perfo rmed by [facility], [address], [place] [address] , Angie Roth ra, , Labor atory Dire tor, CLIA# [id number] Not Available [facility] ([facility] [facility]) [address], [place], [address], 12/06/2024 06:44:54 12/02/19 25 12/03/2024 CHLAM YDIA TRACH OMATI S chlamydia trachomatis, aptima NOT DETECT ED normal DNA testi ng perfo rmed by Trans cript ion Media marilou Ampli ficat ion (TMA) . Resul ts shoul d be inter prete d in conju nctio n with patie nt histo ry and clini trevor prese ntati on. This assay is highl y accur ate, but rare false posit lionel and negat lionel resul ts may occur . Posit lionel resul ts in low preva lence popul ation s may requi re re-ev aluat ion. A negat lionel resul t does not precl ude a possi ble infec tion due to a speci men inade quacy or sampl ing error . Test perfo rmed by [facility], [address], [place] [address] , Angie Roth ra, DO, Labor atory Dire tor, CLIA# [id number] Not Available [facility] ([facility]) [address], [place], [address], 12/06/2024 06:44:55 12/02/1912/02/2024 urina lysis panel , auto FLORENTIN negati ve Not Available [facility] [place] [address], [place], [address], 12/02/2024 12:57:14 12/02/19 25 12/02/2024 urina lysis panel , auto NIT negati ve Not Available [facility] [place] [address], [place], [address], 12/02/2024 12:57:14 12/02/19 25 12/02/2024 urina lysis panel , auto URO 0.2 Not Available [facility] [place] [address], [place], [address], 12/02/2024 12:57:14 12/02/19 25 12/02/2024 urina lysis panel , auto PRO negati ve Not Available [facility] [place] [address], [place], [address], 12/02/2024 12:57:14 12/02/19 25 12/02/2024 urina lysis panel , auto pH 5.5 Not Available [facility] [place] [address], [place], [address], 12/02/2024 12:57:14 12/02/19 25 12/02/2024 urina lysis panel , auto BLO negati ve Not Available [facility] [place] [address], [place], [address], 12/02/2024 12:57:14 12/02/19 25 12/02/2024 urina lysis panel , auto SG >=1.03 0 Not Available [facility] [place] [address], [place], [address], 12/02/2024 12:57:14 12/02/19 25 12/02/2024 urina lysis panel , auto KET negati ve Not Available [facility] [place] [address], [place], [address], 12/02/2024 12:57:14 12/02/19 25 12/02/2024 urina lysis panel , auto PAT negati ve Not Available [facility] [place] [address], [place], [address], 12/02/2024 12:57:14 12/02/19 25 12/02/2024 urina lysis panel , auto GLU negati ve Not Available [facility] [place] [address], [place], [address], 12/02/2024 12:57:14 04/27/20 25 04/27/2025 CBC WBC 6.6 x10(3 )/uL 3.1 - 10.3 Not Available [facility] [address], [place], [address], 04/27/2025 18:29:01 04/27/2004/27/2025 CBC RBC 4.78 x10(6 )/uL 3.20 - 4.60 high Not Available [facility] [address], [place], [address], 04/27/2025 18:29:01 04/27/20 25 04/27/2025 CBC HGB 14.1 g/dL 9.9 - 13.6 high Not Available [facility] [address] [place], [address], 04/27/2025 18:29:01 04/27/20 25 04/27/2025 CBC HCT 43.3 % 30.2 - 42.3 high Not Available [facility] [address] [place], [address], 04/27/2025 18:29:01 04/27/20 25 04/27/2025 CBC MCV 90.6 fL 78.6 - 102.2 Not Available [facility] [address] [place], [address], 04/27/2025 18:29:01 04/27/20 25 04/27/2025 CBC MCH 29.5 pg 25.2 - 34.7 Not Available [facility] [address] [place], [address], 04/27/2025 18:29:01 04/27/20 25 04/27/2025 CBC MCHC 32.6 g/dL 31.3 - 35.4 Not Available [facility] [address] [place], [address], 04/27/2025 18:29:01 04/27/20 25 04/27/2025 CBC platelet count 290 x10(3 )/uL 128 - 434 Not Available [facility] [address] [place], [address], 04/27/2025 18:29:01 04/27/20 25 04/27/2025 CBC neut% 63.4 % 43.7 - 77.1 Not Available [facility] [address] [place], [address], 04/27/2025 18:29:01 04/27/20 25 04/27/2025 CBC lymph% 28.0 % 15.0 - 45.8 Not Available [facility] [address] [place], [address], 04/27/2025 18:29:01 04/27/20 25 04/27/2025 CBC mxd% 8.6 % 1.3 - 25.9 Not Available [facility] [address] [place], [address], 04/27/2025 18:29:04/27/2004/27/2025 CBC neut# 4.2 x10(3 )/uL 1.6 - 6.9 Not Available [facility] [address] [place], [address], 04/27/2025 18:29:01 04/27/20 25 04/27/2025 CBC lymph# 1.8 x10(3 )/uL 0.9 - 2.8 Not Available [facility] [address] [place], [address], 04/27/2025 18:29:01 04/27/20 25 04/27/2025 CBC mxd# 0.6 x10(3 )/uL 0.1 - 1.6 Not Available [facility] [address] [place], [address], 04/27/2025 18:29:01 04/27/2004/27/2025 CBC RDW-SD 46.3 fL 35.3 - 48.9 Not Available [facility] [address] [place], [address], 04/27/2025 18:29:01 04/27/2004/27/2025 CBC RDW-CV 13.1 % 10.6 - 15.7 Not Available [facility] [address] [place], [address], 04/27/2025 18:29:01 04/27/20 25 04/27/2025 CBC MPV 10.3 fL 8.5 - 12.4 Not Available [facility] [address] [place], [address], 04/27/2025 18:29:01 04/27/20 25 04/27/2025 COMPR EHENS LIONEL METAB OLIC PANEL (CMP) albumin 4.2 g/dL 3.5 - 5.0 Not Available [facility] [address] [place], [address], 04/27/2025 18:29:03 04/27/20 25 04/27/2025 COMPR EHENS LIONEL METAB OLIC PANEL (CMP) chloride 106 mmol/ L 98 - 107 Not Available [facility] [address] [place], [address], 04/27/2025 18:29:03 04/27/20 25 04/27/2025 COMPR EHENS LIONEL METAB OLIC PANEL (CMP) creatinine 0.86 mg/dL 0.52 - 1.04 Not Available [facility] [address] [place], [address], 04/27/2025 18:29:03 04/27/20 25 04/27/2025 COMPR EHENS LIONEL METAB OLIC PANEL (CMP) eco2 25 mmol/ L 22 - 30 Not Available [facility] [address] [place], [address], 04/27/2025 18:29:03 04/27/20 25 04/27/2025 COMPR EHENS LIONEL METAB OLIC PANEL (CMP) glucose 87 mg/dL 74 - 106 Not Available [facility] [address] [place], [address], 04/27/2025 18:29:03 04/27/20 25 04/27/2025 COMPR EHENS LIONEL METAB OLIC PANEL (CMP) potassium 4.20 mmol/ L 3.50 - 5.10 Not Available [facility] [address] [place], [address], 04/27/2025 18:29:03 04/27/20 25 04/27/2025 COMPR EHENS LIONEL METAB OLIC PANEL (CMP) alkaline phos 124 U/L 38 - 126 Not Available [facility] [address] [place], [address], 04/27/2025 18:29:03 04/27/20 25 04/27/2025 COMPR EHENS LIONEL METAB OLIC PANEL (CMP) sodium 138 mmol/ L 137 - 145 Not Available [facility] [address] [place], [address], 04/27/2025 18:29:03 04/27/20 25 04/27/2025 COMPR EHENS LIONEL METAB OLIC PANEL (CMP) total bilirubin 0.4 mg/dL 0.2 - 1.3 Not Available [facility] [address] [place], [address], 04/27/2025 18:29:03 04/27/20 25 04/27/2025 COMPR EHENS LIONEL METAB OLIC PANEL (CMP) total protein 7.1 g/dL 6.3 - 8.2 Not Available [facility] [address] [place], [address], 04/27/2025 18:29:03 04/27/20 25 04/27/2025 COMPR EHENS LIONEL METAB OLIC PANEL (CMP) ALT 24 U/L 0 - 35 Not Available [facility] [address] [place], [address], 04/27/2025 18:29:03 04/27/20 25 04/27/2025 COMPR EHENS LIONEL METAB OLIC PANEL (CMP) BUN/urea 18 mg/dL 7 - 17 high Not Available [facility] [address] [place], [address], 04/27/2025 18:29:03 04/27/20 25 04/27/2025 COMPR EHENS LIONEL METAB OLIC PANEL (CMP) eGFR 82 mL/mi n/1.7 3m2 >60 *eGFR Refer ence Value s Molly l: >60 mL/mi n/1.7 3m2 Abnor mal: < 60 mL/mi n/1.7 3m2 Not Available [facility] [address] [place], [address], 04/27/2025 18:29:03 04/27/20 25 04/27/2025 COMPR EHENS LIONEL METAB OLIC PANEL (CMP) A/G ratio 1.5 (calc ) 1.0 - 2.5 Not Available [facility] [address] [place], [address], 04/27/2025 18:29:03 04/27/20 25 04/27/2025 COMPR EHENS LIONEL METAB OLIC PANEL (CMP) globulin 2.8 g/dL_ (calc ) 1.9 - 3.7 Not Available [facility] [address] [place], [address], 04/27/2025 18:29:03 04/27/20 25 04/27/2025 COMPR EHENS LIONEL METAB OLIC PANEL (CMP) calcium 9.8 mg/dL 8.4 - 10.2 Not Available [facility] [address] [place], [address], 04/27/2025 18:29:03 04/27/20 25 04/27/2025 COMPR EHENS LIONEL METAB OLIC PANEL (CMP) AST 31 U/L 14 - 36 Not Available [facility] [address] [place], [address], 04/27/2025 18:29:03 04/27/20 25 04/27/2025 LIPID PANEL VLDL (calculated) 20 mg/dL (calc ) 0 - 30 Not Available [facility] [address] [place], [address], 04/27/2025 18:29:05 04/27/20 25 04/27/2025 LIPID PANEL direct HDL 57 mg/dL 40 - 60 Not Available [facility] [address] [place], [address], 04/27/2025 18:29:05 04/27/20 25 04/27/2025 LIPID PANEL triglyceride s 100 mg/dL 0 - 199 Not Available [facility] [address] [place], [address], 04/27/2025 18:29:05 04/27/20 25 04/27/2025 LIPID PANEL cholesterol 165 mg/dL <200 Not Available [facility] [address] [place], [address], 04/27/2025 18:29:05 04/27/20 25 04/27/2025 LIPID PANEL chol/DHDL ratio 3 %_(ca lc) 0 - 5 Not Available [facility] [address] [place], [address], 04/27/2025 18:29:05 04/27/20 25 04/27/2025 LIPID PANEL LDL (calculated) 89 mg/dL 0 - 100 Not Available [facility] [address] [place], [address], 04/27/2025 18:29:05 04/27/20 25 05/03/2025 JONES IGE ALLER GEN allergen, food, jones IgE <0.10 kU/L <0.10- 0.34 This test was devel oped and its perfo rmanc e merlin cteri stics were deter mined by [facility]. It has not been clear ed or appro kaleigh by the FDA. The labor atory is regul ated under CLIA as quali fied to perfo rm high- compl exity testi ng. This test is used for clini trevor purpo ses and shoul d not be regar ded as inves tigat ional or for resea rc. Not Available [facility] [address] [place], [address], 05/06/2025 13:25:23 04/27/20 25 05/03/2025 ALLER GEN, PORK, IGE allergen, food, pork IgE <0.10 kU/L <0.10- 0.34 Not Available [facility] [address] [place], [address], 05/06/2025 13:25:25 04/27/20 25 05/03/2025 LYME DISEA SE, ANTIB DEBBY SCREE N, RFLX TO IMMUN OBLOT , SERUM B burgdorferi (lyme disease) IgG NEGATI VE negati ve Not Available [facility] [address] [place], [address], 05/06/2025 13:25:26 04/27/20 25 05/03/2025 LYME DISEA SE, ANTIB DEBBY SCREE N, RFLX TO IMMUN OBLOT , SERUM B burgdorferi (lyme disease) IgM NEGATI VE negati ve Not Available [facility] [address] [place], [address], 05/06/2025 13:25:26 04/27/20 25 05/03/2025 ALLER GEN, FOOD, BEEF IGE allergen, food, beef IgE <0.10 kU/L <0.10- 0.34 Not Available [facility] [address] [place], [address], 05/06/2025 13:25:27 04/27/20 25 05/03/2025 BABES IA MICRO TI ANTIB ODIES , IGG/I GM BY IFA babesia microti IgM <1:20 <1:20 INTER PRETI VE INFOR MATIO N: Babes ia micro ti Antib debby, IgM Less than 1:20 ..... ... Negat lionel - No signi fican t level of detec table Babes ia IgM antib odies . 1:20 ..... ..... ..... ... Equiv ocal - Repea t testi ng in 10-14 days may be helpf ul. Great er than 1:20 ..... Posit lionel - IgM antib odies to Babes ia detec marilou which may indic ate a curre nt or recen t infec tion. This test was devel oped and its perfo rmanc e merlin cteri stics deter mined by [employer] [facility]. It has not been clear ed or appro kaleigh by the [place] Food and Drug Admin istra tion. This test was perfo rmed in a CLIA certi fied labor [facility] and is inten ded for clini trevor purpo ses. Perfo rmed By: [facility] [address] [place] [address] [employer] D[employer] tor: Ken salamanca MD, PhD CLIA Numbe r: [id number] Not Available [facility] [address] [place], [address], 05/06/2025 13:25:28 04/27/20 25 05/03/2025 BABES IA MICRO TI ANTIB ODIES , IGG/I GM BY IFA babesia microti IgG < 1:16 < 1:16 INTER PRETI VE INFOR MATIO N: Babes ia micro ti Antib debby, IgG Less than 1:16 ..... ... Negat lionel - No signi fican t level of detec table Babes ia IgG antib odies . 1:16 ..... ..... ..... ... Equiv ocal - Repea t testi ng in 10-14 days may be helpf ul. Great er than 1:16 ..... Posit lionel - IgG antib odies to Babes ia detec marilou which may indic ate a curre nt or previ ous infec tion. This test was devel oped and its perfo rmanc e merlin cteri stics deter mined by [facility]. It has not been clear ed or appro kaleigh by the US Food and Drug Admin istra tion. This test was perfo rmed in a CLIA certi fied labor david and is inten ded for clini trevor purpo ses. Not Available [facility] [address], [place], [address], 05/06/2025 13:25:28 04/27/20 25 05/03/2025 EHRLI SCHUYLER CHAFF EENSI S ANTIB ODIES , IGG/I GM BY IFA ehrlichia chaffeensis antibody, IgG <1:64 <1:64 INTER PRETI VE INFOR MATIO N: Ehrli schuyler Chaff eensi s IgG Ab Less than 1:64 ..... .. Negat lionel: No signi fican t level of Ehrli schuyler chaff eensi s IgG antib debby detec marilou. 1:64- 1:128 ..... ..... . Equiv ocal: [facility] ionab le prese nce of Ehrli schuyler chaff eensi s IgG antib debby detec marilou. Repea t testi ng in 10-14 days may be helpf ul. 1:256 or great er ..... Posit lionel: Prese nce of IgG antib debby to Ehrli schuyler chaff eensi s detec marilou, sugge stive of curre nt or past infec tion. Seroc onver dimitrios betwe en acute and conva lesce nt sera is consi dered stron g evide nce of recen t infec tion. The best evide nce for infec tion is a signi fican t angelo e (four fold diffe rence in titer ) on two appro priat branden timed speci mens, where both tests are done in the same labor atory at the same time. This test was devel oped and its perfo rmanc e merlin cteri stics deter mined by [facility]. It has not been clear ed or appro kaleigh by the US Food and Drug Admin istra tion. This test was perfo rmed in a CLIA certi fied labor atory and is inten ded for clini trevor purpo ses. Not Available [facility] [address] [facility], [place], [address], 05/06/2025 13:25:29 04/27/20 25 05/03/2025 EHRLI SCHYULER CHAFF EENSI S ANTIB ODIES , IGG/I GM BY IFA ehrlichia chaffeensis antibody, IgM < 1:16 < 1:16 INTER PRETI VE INFOR MATIO N: Ehrli schuyler Chaff eensi s IgM Ab Less than 1:16 ..... .. Negat lionel - No signi fican t level of Ehrli schuyler chaff eensi s IgM antib debby detec marilou. 1:16 or great er ..... . Posit lionel - Prese nce of IgM antib debby to Ehrli schuyler chaff eensi s detec marilou, sugge stive of curre nt or recen t infec tion. While the prese nce of IgM antib odies sugge st curre nt or recen t infec tion, low level s of IgM antib odies may occas ional ly persi st for more than 12 month s post- infec tion. A singl e IgM resul t shoul d be inter prete d with cauti on. This test was devel oped and its perfo rmanc e merlin cteri stics deter mined by [facility] atori es. It has not been clear ed or appro kaleigh by the US Food and Drug Admin istra tion. This test was perfo rmed in a CLIA certi fied labor atory and is inten ded for clini trevor purpo ses. Perfo rmed By: [employer] [facility] es [address] [place] [address] Labor atory Direc tor: Ken salamanca MD, PhD RADHA Monzon r: [id number] Not Available [facility] [address] [place] [address], [place], [address], 05/06/2025 13:25:29 04/27/20 25 05/03/2025 JONATAN NGUYEN S ANTIB ODIES , IGG/I GM BY IFA A. phagocytophi lum Ab IgM < 1:16 < 1:16 INTER PRETI VE INFOR MATIO N: A. phago cytop hilum (HGA) Antib debby, IgM Less than 1:16 - No signi fican t level of IgM antib odies to A. phago cytop hilum detec marilou. Great er than or equal to 1:16 - Sugge stive of a curre nt or recen t infec tion with A. phago cytop hilum . This test was devel oped and its perfo rmanc e merlin cteri stics deter mined by [facility] atori es. It has not been clear ed or appro kaleigh by the US Food and Drug Admin istra tion. This test was perfo rmed in a CLIA certi fied labor atory and is inten ded for clini trevro purpo ses. Perfo rmed By: [facility] at[facility] es [address] [place] [address] Labor atory Direc tor: Ken salamanca MD, PhD RADHA Monzon r: [id number] Not Available [facility] [address] [place], [address], 05/06/2025 13:25:29 04/27/20 25 05/03/2025 JONATAN Churchill ANTIB ODIES , IGG/I GM BY IFA A. phagocytophi lum Ab IgG <1:80 <1:80 INTER PRETI VE INFOR MATIO N: A. phago cytop hilum (HGA) Antib debby, IgG Less than 1:80 - No signi fican t level of IgG antib odies to A. phago cytop hilum detec marilou. Great er than or equal to 1:80 - Sugge stive of a recen t or past infec tion with A. phago cytop hilum . This test was devel oped and its perfo rmanc e merlin cteri stics deter mined by [facility] atori es. It has not been clear ed or appro kaleigh by the US Food and Drug Admin istra tion. This test was perfo rmed in a CLIA certi fied labor david and is inten ded for clini trevor purpo ses. Not Available [facility] [address] [place], [address], 05/06/2025 13:25:29 04/27/20 25 05/03/2025 HEMOG LOBIN A1C hemoglobin A1C 5.7 % <5.7 high The follo wing HbA1c range s recom mauro d by the Jennifer can Diabe ernie Assoc iatio n (ADA) may be used as an aid in the diagn osis of diabe ernie melli tus. HbA1c Sugge sted Diagn osis >=6.5 % Diabe tic 5.7% - 6.4% Pre-D iabet ic <5.7% Non-D iabet ic Not Available [facility] [address] [place], [address], 05/06/2025 13:25:30 04/27/2005/03/2025 ALLER GY FOOTN OTES allergy footnotes SEE COMMEN T Refer ence Range s and Clini trevor Impli catio ns of Speci fic IgE Class 0 <0.10 kU/L No signi fican t level detec marilou Class 1 0.10- 0.34 kU/L Clini trevor relev ance undet ermin ed Class 2 0.35- 0.69 kU/L Low level , ongoi ng sensi tizat ion Class 3 0.70- 3.49 kU/L Moder ate level , stron ab ongoi ng sensi tizat ion Class 4 3.50- 17.49 kU/L High level of sensi tizat ion Class 5 17.50 -49.9 9 kU/L Very high level of sensi tizat ion Class 6 >=50. 00 kU/L Very high level of sensi tizat ion Not Available [facility] [address] [place], [address], 05/06/2025 13:25:32 04/27/20 25 05/03/2025 ESTIM ATED AVERA GE GLUCO SE estimated average glucose (EAG) 117 mg/dL Estim ated [place] ge Gluco se (eAG) is calcu lated using the equat ion eAG = (28.7 x HbA1c ) - 46.7 based on the guide lines estab lishe d by the ADA. If the patie nt has certa in disea ses inclu ding kidne y disea se, sickl e cell anemi a, thala ssemi a, or is takin g medic ation s such as dapso ne, eryth ropoi etin, or iron, eAG shoul d not be evalu ated. Not Available [facility] [address] [place], [address], 05/06/2025 13:25:32 04/27/20 25 05/03/2025 MACARENA Johnson TULAR ENSIS ANTIB ODIES , IGG AND IGM francisella tularensis antibody, IgG Negati ve negati ve Not Available [facility] [address] [place], [address], 05/06/2025 13:25:33 04/27/20 25 05/03/2025 MACARENA Johnson TULAR ENSIS ANTIB ODIES , IGG AND IGM francisella tularensis antibody, IgM Negati ve negati ve Not Available [facility] [address] [place], [address], 05/06/2025 13:25:33 04/27/20 25 05/03/2025 MACARENA Johnson TULAR ENSIS ANTIB ODIES , IGG AND IGM fracisella tularensis antibody interpretati on See Note No signi fican t level of IgG or IgM antib debby to Macarena johnson tular ensis detec marilou. INTER PRETI VE INFOR MATIO N: F. tular ensis Antib debby Inter preta tion Cross -reac tivit y with Fredrick lla and Yersi rosemarie antib odies may occur . False -posi tive resul ts are possi ble, there fore resul ts shoul d be inter prete d with cauti on and corre lated with clini trevor infor matio n. Confi rmati on by anoth er metho d, such as agglu tinat ion may be helpf ul. This test was devel oped and its perfo rmanc e merlin cteri stics deter mined by [facility] atori es. It has not been clear ed or appro kaleigh by the U.S. Food and Drug Admin istra tion. This test was perfo rmed in a CLIA- certi fied labor atory and is inten ded for clini trevor purpo ses. Perfo rmed By: [facility] at[facility] es [address] [place] [address] [employer] D[employer] tor: Ken salamanca MD, PhD CLIA Numbe r: [id number] Not Available [facility] [address] [place], [address], 05/06/2025 13:25:33 12/02/19 25 12/02/2024 US, pelvi s, trans abdom inal + trans vagin al No observ ation record ed. Not Available 12/02 16:52:20 12/15/1912/14/2024 XR, lumbo sacra l spine , 2 or 3 view No observ ation record ed. [email or web address] [address], [address], [place], [address], 12/15/2024 14:10:30 Result Notes None recorded. Problems Name Problem SNOMED Code Status Onset Date Resolution Date Notes Provider Name and Address Organization Details Recorded Time Right lower quadrant pain 893355194 Active 2024 [facility] [address] [place] [address], [id number] , [facility] 5 12:56:44 Obesity 601233447 Active 2024 [facility] [address] [place] [address], [id number] , [facility] 5 17:17:01 Pharyngi tis 794362233 Completed 201405/19/2019 Created By: MATHEW CEDILLO; Modified By: MATHEW CEDILLO; Category : DD; Examiner : Mathew Cedillo; Medicine Descript ion: PHARYNGI TIS; Display in Medcin: YES; Display in ESB: YES; Confiden tiality Level: Level 1; Type: MARGOT Rogers, [facility] 9 15:22:52 Clinical finding Completed 201405/19/2019 Created By: MATHEW CEDILLO; Modified By: MATHEW CEDILLO; Category : DD; Examiner : Mathew Cedillo; Medicine Descript ion: feeling poorly (malaise ) worse in the morning; Display in Medcin: YES; Display in ESB: YES; Confiden tiality Level: Level 1; Type: MARGOT Rogers, [facility] 9 15:22:49 Exposure to communic able disease Completed 201405/19/2019 Created By: MATHEW CEDILLO; Modified By: MATHEW CEDILLO; Category : DD; Examiner : Mathew Cedillo; Medicine Descript ion: exposure to mumps; Display in Medcin: YES; Display in ESB: YES; Confiden tiality Level: Level 1; Type: Diagnosi s Abigail Lee LPN [facility] 9 15:22:54 Desquama tive inflamma tory vaginiti s [id number] Active 2020 Not Available [facility] 4 12:40:23 Notes:Some problems listed i n Documents: #[id number], #[id number], #[id number] could not be added to this patient's chart. Please review these documents and add these problems to the patient's chart manually as needed. Problem Notes None recorded. Procedures Surgical History Date Name Laterality Status Provider Name and Address Organization Details Recorded Time 025 USGynTransvaginal completed Liss Alan [facility] 12/02/2024 13:37:05 023 venipuncture completed Melissa Pearson [facility] 03/24/2023 16:39:36 020 venipuncture completed Sharon Adair [facility] 11/29/2019 12:50:43 019 Nebulizer tx albuterol completed Rachele Nguyen [facility] 05/19/2019 16:11:44 total hysterectomy completed Abigail Lee LPN [facility] 05/19/2019 15:26:42 Removal of ovary(s) completed Abigail Lee LPN [facility] 05/19/2019 15:26:53 Appendectomy completed Abigail Lee LPN [facility] 05/19/2019 15:26:59 laparoscopy completed Melissa Pearson [facility] 02/11/2023 12:21:59 Imaging Results None recorded. Procedure Notes None recorded. Medical Equipment None Reported. Allergies No known drug allergies Medications Name Sig Start Date Stop Date Status Note LastModified by Organization Details LastModified Time any chopra medicatio n Inject 0.3ml subcutan eously weekly 2024 active Not Available Not Available Not Avai lable Prescript ion - Prior Authoriza tion Request 12/03 completed Not Available Not Available Not Available any chopra medicatio n Inject 0.2ml SQ weekly 12/23 completed Not Available Not Available Not Available Miralax 17 gram/dose oral powder TAKE 17 GRAM MIXED WITH 8 OZ. WATER, JUICE, SODA, COFFEE OR TEA BY ORAL ROUTE ONCE DAILY 12/03 completed Not Available Not Available Not Available clonidine HCl 0.1 mg tablet 1 tablet given at 1:30 PM 02/11 completed Not Available Not Available Not Available acetamino phen 325 mg tablet TAKE ONE TABLET BY MOUTH EVERY 4 HOURS NEEDED FOR FEVER OR postoper ative pain 12/03 completed Not Available Not Available Not Available tizanidin e 2 mg tablet TAKE 1 TABLET BY MOUTH EVERY 6 HOURS NEEDED 04/27 completed Not Available Not Available Not Available ibuprofen 800 mg tablet TAKE ONE TABLET BY MOUTH THREE TIMES DAILY NEEDED FOR PAIN 12/03 completed Not Available Not Available Not Available fluconazo le 150 mg tablet TAKE 1 TABLET BY MOUTH ONCE DAILY FOR 1 DAY 01/21 completed Not Available Not Available Not Available hydrocodo ne 5 mg-acetam inophen 325 mg tablet TAKE 1 TABLET BY MOUTH EVERY 4 TO 6 HOURS NEEDED FOR PAIN active Not Available Not Available No t Available meloxicam 15 mg tablet TAKE 1 TABLET BY MOUTH EVERY DAY 04/27 completed Not Available Not Available Not Available lisinopri l 20 mg tablet TAKE 1 TABLET BY MOUTH DAILY 03/16 completed Not Available Not Available Not Available famotidin e 40 mg tablet TAKE ONE TABLET BY MOUTH TWICE DAILY 09/19 completed Not Available Not Available Not Available prednison e 20 mg tablet Take 3 tablets every day by oral route for 5 days. 04/27 completed Not Available Not Available Not Available metronida zole 500 mg tablet Take 1 tablet 3 times a day by oral route for 10 days. 11/24 completed Not Available Not Available Not Available phentermi ne 37.5 mg tablet TAKE 1 TABLET BY MOUTH ONCE DAILY 12/03 completed Not Available Not Available Not Available tramadol 50 mg tablet TAKE 1 TABLET BY MOUTH EVERY 6 HOURS FOR 5 DAYS 12/23 completed Not Available Not Available Not Available hydrocort isone acetate 25 mg rectal supposito ry Insert 1 supposit ory in vagina once a day at bedtime for 6 weeks 01/28 completed Not Available Not Available Not Available ceftriaxo ne 1 gram solution for injection Take 1 g by injectio n route. 01/21 completed Reconsti tuted with 2.1 ML of 1% lidocain e. JSartin, ECONOMIC GEOGRAPHER Not Available Not Available Not Available famotidin e 20 mg tablet Take 2 tablets twice a day by oral route. 09/19 completed Not Available Not Available Not Available tamsulosi n 0.4 mg capsule TAKE 1 CAPSULE BY MOUTH EVERY DAY 12/23 completed Not Available Not Available Not Available meclizine 25 mg tablet Take 1 tablet 3 times a day by oral route as needed. 12/03 completed Not Available Not Available Not Available oseltamiv ir 75 mg capsule TAKE 1 CAPSULE BY MOUTH TWICE DAILY FOR 5 DAYS 01/28 completed Not Available Not Available Not Available Cipro 500 mg tablet Take 1 tablet every 12 hours by oral route for 10 days. 11/24 completed Not Available Not Available Not Available lisinopri l 10 mg tablet TAKE 1 TABLET BY MOUTH ONCE DAILY active Not Available Not Available No t Available hyoscyami ne 0.125 mg sublingua l tablet DISSOLVE 1 TABLET IN MOUTH THREE TIMES DAILY NEEDED 12/23 completed Not Available Not Available Not Available hydrochlo rothiazid e 12.5 mg capsule TAKE 1 CAPSULE BY MOUTH ONCE DAILY 05/09 completed Not Available Not Available Not Available magnesium 500 mg (as magnesium oxide) tablet TAKE 2 TABLETS BY MOUTH ONCE DAILY DIRECTED active takes infreque ntly Not Available Not Available Not Available omeprazol e 20 mg capsule,d elayed release Take 1 capsule by mouth once daily 2024 active Not Available Not Available Not Avai lable hydrochlo rothiazid e 25 mg tablet TAKE 1 TABLET BY MOUTH ONCE DAILY active Not Available Not Available No t Available diclofena c sodium 50 mg tablet,de layed release TAKE 1 TABLET BY MOUTH THREE TIMES DAILY 12/23 completed Not Available Not Available Not Available furosemid e 20 mg tablet Take 1 Tablet (20 mg) by mouth daily. 01/28 completed Not Available Not Available Not Available estradiol 0.5 mg tablet TAKE 1 TABLET BY MOUTH ONCE DAILY active Not Available Not Available No t Available estradiol 0.01% (0.1 mg/gram) vaginal cream INSERT 1 GRAM VAGINALL Y TWICE WEEKLY active Not Available Not Available No t Available ondansetr on 4 mg disintegr ating tablet DISSOLVE 1 TABLET IN MOUTH EVERY 6 TO 8 HOURS NEEDED 03/16 completed Not Available Not Available Not Available doxycycli ne hyclate 100 mg tablet Take 1 tablet twice a day by oral route for 10 days. 05/14 completed Not Available Not Available Not Available amoxicill in 875 mg-potass ium clavulana te 125 mg tablet TAKE 1 TABLET BY MOUTH EVERY 12 HOURS FOR 10 DAYS 12/23 completed Not Available Not Available Not Available nitrofura ntoin monohydra te/macroc rystals 100 mg capsule TAKE 1 CAPSULE BY MOUTH TWICE DAILY WITH FOOD 04/27 completed Not Available Not Available Not Available hydrochlo rothiazid e 12.5 mg tablet TAKE ONE TABLET BY MOUTH DAILY FOR FLUID 09/19 completed Not Available Not Available Not Available sodium,po tassium,m ag sulfates 17.5 gram-3.13 gram-1.6 gram oral soln TAKE 177ML BY MOUTH TWICE DAILY DIRECTED FOR 1 DAY. 08/09 completed Not Available Not Available Not Available Contrave 8 mg-90 mg tablet,ex tended release TAKE 1 TABLET BY MOUTH ONCE DAILY IN THE MORNING FOR 1 WEEK THEN 1 TWICE DAILY FOR 1 WEEK THEN 2 ONCE DAILY IN THE MORNING AND 1 ONCE DAILY IN THE EVENING FOR 1 WEEK. DO NOT EXCEED 4 PER 24 HOURS 11/24 completed Patient tried taking these, but states they made her feel like she was in a fog. Not Available Not Available Not Available Trulance 3 mg tablet TAKE 1 TABLET BY MOUTH ONCE DAILY DIRECTED 11/24 completed Not Available Not Available Not Available Imvexxy Starter Pack 10 mcg vaginal insert, dose pack INSERT 1 VAGINAL INSERT (10 MCG) BY VAGINAL ROUTE ONCE DAILY FOR 2 WEEKS THEN 1 INSERT (10 MCG) TWICE WEEKLY FOR DURATION OF USE 12/03 completed Not Available Not Available Not Available Imvexxy Maintenan ce Pack 10 mcg vaginal insert Insert 1 vaginal insert twice a week by vaginal route. 12/03 completed Not Available Not Available Not Available Wegovy 0.25 mg/0.5 mL subcutane ous pen injector Inject by subcutan eous route for 28 days. 03/24 completed Not Available Not Available Not Available Zepbound 2.5 mg/0.5 mL subcutane ous pen injector Inject by subcutan eous route for 28 days. 12/23 completed Not Available Not Available Not Available Vitals Date Recorded Body height Body mass index (BMI) Body weight Body temperature Heart rate Oxygen saturation Oxygen saturation in Arterial blood by Pulse oximetry Systolic And Diastolic Provider Name and Address Organization Details Last Updated DateTime 5 167.64 cm 42.3 kg/m2 400803. 6 g 97.5 [degF] 96 /min 98 % 98 % 128/86 mm[Hg] Lupe Ni [facility] 5 12:02:07 Date Recorded Body height Body mass index (BMI) Body weight Body temperature Heart rate Oxygen saturation Oxygen saturation in Arterial blood by Pulse oximetry Respiratory rate Systolic And Diastolic Provider Name and Address Organization Details Last Updated DateTime 5 167.64 cm 42.7 kg/m2 917084. 54 g 98.3 [degF] 78 /min 99 % 99 % 18 /min 122/76 mm[Hg] Baylee Davies [facility] 5 10:09:34 Date Recorded Body height Body weight Body mass index (BMI) Body temperature Heart rate Oxygen saturation Oxygen saturation in Arterial blood by Pulse oximetry Respiratory rate Systolic And Diastolic Provider Name and Address Organization Details Last Updated DateTime 5 167.64 cm 018682. 79 g 42.7 kg/m2 98.2 [degF] 78 /min 97 % 97 % 18 /min 132/82 mm[Hg] Sonia Reed [facility] 5 12:01:02 Date Recorded Body height Body mass index (BMI) Body weight Body temperature Respiratory rate Heart rate Oxygen saturation Oxygen saturation in Arterial blood by Pulse oximetry Systolic And Diastolic Provider Name and Address Organization Details Last Updated DateTime 5 167.64 cm 43 kg/m2 391818. 37 g 98.5 [degF] 20 /min 83 /min 99 % 99 % 140/96 mm[Hg] Melissakasandra Pearson [facility] 5 11:56:28 Social History Question Answer Notes LastModified by Organizat ion Details LastModified Time Tobacco Smoking Status Never Smoker Abigail Lee LPN [facility] 05/19/2019 15:24:33 Do You Have An Advance Directive? No Information not available 05/19/2019 Are You Blind Or Do You Have Difficulty Seeing? No Information not available 01/28/2023 Is Blood Transfusion Acceptable In An Emergency? Yes [email or web address] Information not available 12/02/2024 What Is Your Level Of Caffeine Consumption? Occasional Information not available 05/19/2019 How Much Tobacco Do You Chew? None Information not available 05/19/2019 Commercial Sex Work No Information not available 05/19/2019 In The 14 Days Before Symptom Onset, Have You Had Close Contact With A Laboratory-confir med COVID-19 While That Case Was Ill? No Information not available 12/30/2019 In The 14 Days Before Symptom Onset, Have You Had Close Contact With A Person Who Is Under Investigation For COVID-19 While That Person Was Ill? No Information not available 12/30/2019 Have You Been To An Area Known To Be High Risk For COVID-19? No Information not available 12/30/2019 Are You Deaf Or Do You Have Serious Difficulty Hearing? No [email or web address] Information not available 09/19/2021 What Type Of Diet Are You Following? REGULAR Information not available 05/19/2019 Which Illicit Or Recreational Drugs Have You Used? None Information not available 05/19/2019 Have You Processed Blood Or Body Fluids From An Ebola Virus Disease Patient Without Appropriate PPE? No Information not available 12/03/2023 Education 12 Information no t available 05/19/2019 What Is The Highest Grade Or Level Of School You Have Completed Or The Highest Degree You Have Received? [id number] [email or web address] Information not available 09/19/2021 Are There Any Guns Present In Your Home? Yes Information not available 05/19/2019 Hard Of Hearing Or Deaf In One Or Both Ears? No Information not available 05/19/2019 High Number Of Sexual Partners No Information not available 05/19/2019 History Of Inconsistent/no Condom Use No Information not available 05/19/2019 How Many Years Have You Used Illicit Or Recreational Drugs? 0 Information not available 04/17/2020 International Travel [place] Information not available 05/19/2019 Legally Blind In One Or Both Eyes? No Information no t available 05/19/2019 In The Past 6 Months Have You Fallen No Information not available 05/19/2019 Have You Ever Been Tested For Hepatitis C No Information not available 05/19/2019 Have You Had A Blood Transfusion Before 1991? No Information not available 05/19/2019 Have You Had Mis Director Dialysis? No Information not available 05/19/2019 Have You Ever Used Injectable Drugs, Even Once? No Information no t available 05/19/2019 Do You Have Tattoos Or Body Piercings? No Information not available 05/19/2019 Have You Had Close Contact With An Individual With Hepatitis C? No Information not available 05/19/2019 Have You Ever Had Sex For Drugs Or Money? No Information not available 05/19/2019 Have You Ever Had Unprotected Sex? No Information not available 05/19/2019 Have You Been Incarcerated For Longer Than 6 Months? No Information not available 05/19/2019 Have You Tested Positive For HIV? No Information no t available 05/19/2019 Do You Have A History Of Fist Fighting Or Combat Experience? No Information not available 05/19/2019 Other? None Information no t available 05/19/2019 Medication List Reconciled Yes Information not available 11/29/2019 Most Recent Dental Visit 09/19/2021 [email or web address] Information not available 09/19/2021 Sexual Orientation Straight Or Heterosexual Information not available 05/19/2019 Gender Identity Female Informati on not available 05/19/2019 Do You Feel Safe Yes Informat ion not available 05/19/2019 Marital Status Informatio n not available 05/19/2019 What Was The Date Of Your Most Recent Tobacco Screening? 04/27/2025 Information not available 04/27/2025 Mother With HIV? No Informat ion not available 05/19/2019 How Many Children Do You Have? 2 [email or web address] Information not available 09/19/2021 Do You Use Protection During Sex? No [email or web address] Information not available 09/19/2021 What Is Your Relationship Status? Information not available 09/20/2024 Do You Use Your Seat Belt Or Car Seat Routinely? Yes [email or web address] Information not available 09/19/2021 Seat Belts Used Routinely Yes Information not available 05/19/2019 Are You Sexually Active? Yes Information not available 05/19/2019 Sexual Partner Has HIV? No Information not available 05/19/2019 Sexual Partner Uses IV Drugs? No Information not available 05/19/2019 Smoke Alarm In Home Yes Information not available 05/19/2019 How Much Tobacco Do You Smoke? No Information not available 11/29/2019 General Stress Level Medium Information not available 05/19/2019 Do You Use Sunscreen Routinely? Yes Information not available 05/19/2019 Have You Used IV Drugs? No Information not available 05/19/2019 Do You Have Difficulty Walking Or Climbing Stairs? No Information not available 01/28/2023 Sex: Female Functional Status Question Answer Note LastModified by Organizat ion Details LastModified Time Do you or have you ever used smokeless tobacco? Never used smokeless tobacco Information not available 11/29/2019 Are you currently employed? Yes [email or web address] Information not available 09/19/2021 Do you have transportation difficulties? No Information not available 01/28/2023 Are you able to care for yourself? No Information n ot available 01/28/2023 Do you have difficulty dressing or bathing? No Information not available 01/28/2023 Do you or have you ever used e-cigarettes or vape? Never used electronic cigarettes Information not available 11/29/2019 What is your exercise level? Moderate Information not available 05/19/2019 Do you use any illicit or recreational drugs? No [email or web address] Information not available 09/19/2021 Do you or have you ever used any other forms of tobacco or nicotine? No [email or web address] Information not available 09/19/2021 What is your level of alcohol consumption? Occasional [email or web address] Information not available 09/19/2021 Are you able to walk? [email or web address] Information not available 05/19/2019 Do you have difficulty doing errands alone? 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 [id number] Information not available 09/19/2021 Do you have difficulty concentrating, remembering or making decisions? No Information no t available 01/28/2023 Family History Relationship Description Onset Age of this Age Resolved Age Notes LastModified by Organization Details LastModified Time Father Diabetes mellitus Not available 2018 15:23:18 Father Heart disease Not available 2018 15:23:32 Father Hypertensive disorder Not available 2018 15:23:38 Father Malignant neoplastic disease [email or web address] Not available 05/19/2019 15:24:15 Maternal Grandmother Diabetes mellitus Not available 2018 15:23:18 Maternal Grandmother Heart disease Not available 2018 15:23:32 Paternal Grandmother Diabetes mellitus Not available 2018 15:23:18 Paternal Grandmother Malignant neoplastic disease colon Not available 2018 15:24:15 Maternal Grandfather Heart disease Not available 2018 15:23:32 Paternal Grandfather Malignant neoplastic disease Not available 2018 15:24:15 Medical History Condition Response Other N Gout N Kidney Stones N Blood Diseases N Hyperthyroidism N Blood Transfusion N COPD N Depression N Incontinence N Edema N Endocrine Disorders N Anxiety Disorder N Muscle, Joint, or Bone Problems N Obesity N Vision or Eye Problems N Arthritis N Auditory Hallucinations N Infertility N Cancer N Stroke N Varicosities N Headaches N Fibromyalgia N Kidney Disease N Abnormal Bleeding N Reproductive System Problems N Ear or Hearing Problems N Hospitalizations Y Learning Disorder N Skin Problems N Eating Disorder N MRSA exposure N Urinary Problems N Constipation N Brain Injury N Visual Hallucinations N AIDS/HIV N Tuberculosis N Back Problems N Asthma N GERD/Reflux N Hepatitis N Pulmonary Embolism N Chronic Ear Infections N Chicken Pox N Autism Spectrum Disorder (ASD) N Thrombophilias N Thyroid Disease N Breast Cancer N Hypothyroidism N Lung Disease N Developmental or Behavioral Disorders N Defects or Inherited Disease N Breast Problem N Difficulty Swallowing N Anesthesia Complications N Deep Vein Thrombosis N Meniere's disease N Hearing Loss N Head Injury/Concussion N Congenital Anomalies N Abnormal Pap Smear Y Endometriosis N Bladder or Kidney Problems N High Cholesterol N Nervous System Disorder N Liver Disease N Psychiatric/Mental Health Condition N Schizophrenia N Allergies/Hayfever N Parkinson's Disease N CHEMIST INSTRUMENTATION Surgery Y GI Problems N ADD/ADHD N Anemia N Colon Polyps N ENT Surgery N Heart Attack (NV) N Diabetes N Ovarian Cancer N Bedwetting N Seizures/Epilepsy N Amnesia N Congestive Heart Failure (CHF) N Eczema N Diverticulitis N Abuse/Domestic Violence N Dementia N Cardiovascular N Back Surgery N Tourette Syndrome N CHEMIST INSTRUMENTATION Procedure N Pre-Eclampsia N Hypertension N Osteoporosis N Gynecological History Statement/Question Response Abnormal Pap Y Date of Last Mammogram Flow Moderate Date of LMP 11/17/2009 STIs/STDs N HPV Vaccine N Most Recent Mammogram Age at Menarche 11 Current Control Method Hysterectom y Age at First Child 20 Date of Last Colonoscopy Frequency of Cycle (Q days) 5 Most Recent Bone Density Sexually Active? N Menses Monthly N Date of Last Pap Smear Sexual Problems? N Hormone Replacement Therapy N Obstetrics History GPAL:G 2 P 2 0 0 2 Type Value Full Term 2 Living 2 Total 2 Past Encounters Encounter ID Performer Location Encounter Start Date Encounter Closed Date Diagnosis/Indication Diagnosis SNOMED-CT Code Diagnosis ICD10 Code Diagnosis Note [id number] Gurpreet Johnson DO [facility] [address] [place] [address] 05/19/2019 15:00:00 05/21/2019 10:02:55 Low back pain 006326845 M54.5 Dyspnea 822809264 R06.00 [id number] Gurpreet Johnson DO [facility] [address] [place] [address] 11/29/2019 11:52:12 11/29/2019 12:23:01 Acute pharyngitis 776976299 J02.9 Long-term drug therapy 297716984 Z79.899 Hyperlipidemia 52733117 E78.5 Fatigue 58514420 R53.83 Edema of l ower extremity 808967062 R60.0 [id number] Gurpreet Johnson [facility] [address] [place] [address] 12/30/2019 13:51:51 12/30/2019 14:51:20 Hyperlipidemia 56605523 E78.5 Edema of l ower extremity 827713951 R60.0 Mild petting edema of lower extremitie s [id number] Gurpreet Johnson [facility] [address] [place] [address] 04/17/2020 15:38:59 04/17/2020 17:39:12 Obesity 493314195 E66.9 Risk of ex posure to communicable disease 151884054 Z20.9 [id number] Gurpreet Johnson [facility] [address] [place] [address] 05/30/2020 10:11:54 05/30/2020 11:56:25 Obesity 364940211 E66.9 [id number] Augusta KUHN MD [facility] [place] [id number] [place] [address] 09/19/2021 14:50:54 10/25/2021 16:13:07 History of hysterectomy 151889613 Z90.711 Left ovary remains Abnormal v aginal bleeding 324666927 N93.9 U/S with no ovarian cyst. Check vaginitis panel and recommend that she return if she has any bleeding. It sounds like delia brown blood and she has strawberry spots on her vagina. She may also benefit from intravagin al cortisone. Will await results and [facility] Screening for disorder 548180635 Z11.3 [id number] Augusta KUHN MD [facility] [place] [id number] [place] [address] 10/19/2021 08:02:45 10/19/2021 16:41:14 Abnormal vaginal bleeding 772194737 N93.9 US of 09/19/21 with no ovarian cyst. 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 May consider pap of the vagina in the future. Desquamati ve inflammatory vaginitis 7153690453 64723 N76.0 Start vaginal hydrocorti sone suppositor y. Dyspareunia 96959984 N94 .10 Start Imvexxy. [id number] ANTHONY COOMBS DO [facility] [address] [place] [address] 11/04/2022 11:44:21 11/04/2022 12:09:53 Influenza caused by Influenza A virus 437416847 J09.X2 Treat symptomati harpal. Drink plenty of fluids. Call or return if no improvemen t or condition worsens. [id number] ANTHONY COOMBS DO [facility] [address] [place] [address] 01/28/2023 14:06:51 01/28/2023 15:18:15 Hypertensive disorder 44060400 I10 BP 158/100; Clonidine 0.1 mg given at 1:30 PMRechecke d her blood pressure at 2:05 PM and it was 148/94Reco mmended to not work tomorrow.P atient agrees to monitor blood pressure at home and notify provider if remains >140/90.Fo llow up x2 weeks and keep a log of blood pressure. Dizziness 075645330 R42 A prescripti on was provided for meclizine to take as needed. Nausea 975544985 R11.0 Zofran given and nausea improved Palpitations 44270966 R0 0.2 EKG reviewed and normal except for PVCs. Diabetes m ellitus screening 879732215 Z13.1 Edema of l ower extremity 818401710 R60.0 Start on hctz in the morning for swelling. Screening for cardiovascular system disease 064627872 Z13.6 [id number] ANTHONY COOMBS DO [facility] [address] [place] [address] 02/11/2023 12:09:24 02/11/2023 12:45:59 Hypertensive disorder 95333695 I10 Continues to have intermitte nt elevated blood pressure. Will start on lisinopril 10 mg daily. Continue hctz 25 mg. Continue to monitor blood pressure. Pt voiced understand ing. Follow up x1 month or sooner if needed. Body mass index 30+ - obesity 461444109 Z68.39 Will start Wegovy. Counseled patient on proper medication administra tion and side effects. Advised to stop the medication if side effects occur and notify provider. Discussed the importance of healthy lifestyle changes and beginning a physical exercise regimen while taking the medication for senior living success. Questions encouraged and answered, verbalized understand ing. Diet education 34901120 Z71.3 Exercises education, guidance, and counseling 446542473 Z71.89 [id number] ANTHONY COOMBS DO [facility] [address] [place] [address] 03/24/2023 16:03:50 03/25/2023 16:58:27 Hypertensive disorder 00628166 I10 Blood pressure 123/82 Body mass index 40+ - severely obese 829736052 Z68.41 BMI 40 Nausea 109792298 R11.0 Recommende d to take vitamins at night with food to see if nausea improves. Also may take zofran as needed. Gastroesop hageal reflux disease without esophagitis 916507966 K21.9 Continue omeprazole every morning on empty stomach. Fatigue 73085278 R53.83 Discussed evaluation for chronic fatigue syndrome or depression . Will recheck labs today; Start taking vitamins at night. Also will order home sleep study for evaluation . Patient voiced understand ing. Hypersomnia 37537360 G47 .10 Sleep study order faxed to [facility] and they will verify insurance and mail her home sleep study kit from [employer]. [id number] ANTHONY COOMBS DO [facility] [address] [place] [address] 05/26/2023 12:09:01 05/27/2023 15:42:40 Hypertensive disorder 62697340 I10 Blood pressure 123/85. Currently on lisinopril 10 mg and hctz 25 mg daily. Body mass index 40+ - severely obese 234323613 Z68.41 BMI 40.2 Will start on adipex daily. Discussed she must show consistent weight loss to continue the adipex each month. After three months she will need to take a two month break from medication . Pt voiced understand ing. If adipex does not work can consider starting the contrave. Follow up x1 month to evaluate weight loss and blood pressure. [id number] ANTHONY COOMBS DO [facility] [address] [place] [address] 06/23/2023 16:16:23 06/23/2023 17:27:49 Body mass index 30+ - obesity 106183907 Z68.39 BMI 39.4. Lost 5 lbs since last visit. Currently on adipex; Will be due for refill in a few days. Will call. Diet education 69488691 Z71.3 Exercises education, guidance, and counseling 398494441 Z71.89 Influenza- like symptoms 737389120 R68.89 Fever 012554172 R50.9 If spike a fever during evening let provider know and will recheck her covid/flu swab. [id number] ANTHONY COOMBS [facility] [address] [place] [address] 12/03/2023 09:40:31 12/04/2023 11:20:51 Body mass index 40+ - severely obese 273134831 Z68.41 BMI 41 Will start on zepbound 2.5 mg weekly if covered by insurance. Other options will be considered if not covered by insurance Diet education 59900629 Z71.3 Exercises education, guidance, and counseling 550218186 Z71.89 Acute sinusitis 67336123 J01.90 Will treat with course of antibiotic s. If symptoms not improving let provider know. Hypertensive disorder 38 697367 I10 Blood pressure elevated; Will monitor. Labs pending and will contact patient with results. [id number] ANTHONY COOMBS [facility] [address] [place] [address] 12/23/2023 09:02:25 12/24/2023 13:21:20 Nausea and vomiting 23938891 R11.2 Acute urin caleb tract infection 143367990 N39.0 [id number] ANTHONY COOMBS [address] [address] 01/22/2024 14:13:19 01/23/2024 15:25:52 Hypertensive disorder 05106214 I10 Blood pressure elevated; Increase lisinopril to 20mg daily Palpitations 66461388 R0 0.2 EKG reviewed and sinus arrhythmia [id number] ANTHONY COOMBS [facility] [address] [place] [address] 02/23/2024 13:45:23 02/24/2024 13:09:38 Essential hypertension 93539930 I10 [id number] ANTHONY COOMBS [facility] [address] [place] [address] 03/16/2024 09:52:48 03/17/2024 13:13:58 Exposure to SARS-CoV-2 568860187 Z20.822 Body mass index 40+ - severely obese 040983855 Z68.41 BMI 40.7 Diet education 52726769 Z71.3 Exercises education, guidance, and counseling 127722797 Z71.89 Viral uppe r respiratory tract infection 674594417 J06.9 Treat symptomati harpal if symptoms not improving let provider know. [id number] ANTHONY CORIN, [facility] [address] [place] [address] 05/06/2024 11:21:38 05/10/2024 08:43:35 Acute urinary tract infection 506348361 N39.0 Her UA was postive for infection. Course of antibiotic s given. If not improving let provider know. Body mass index 40+ - severely obese 851558099 Z68.41 BMI 40.6 Diet education 14350804 Z71.3 Exercises education, guidance, and counseling 412727622 Z71.89 [id number] ANTHONY CORIN, [facility] [address] [place] [address] 06/14/2024 09:26:54 06/14/2024 11:42:08 Body mass index 40+ - severely obese 708079029 Z68.41 BMI 40.6 Abdominal pain 71153331 R10.9 KUB obtained and send to radiologis t jose mTend swathi noted in [facility] and will review this afternoon to r/o kidney stone or colitis. Dehydration 40976720 E86 .0 UA indicated she needs to drink more fluids. Pt voiced understand ing. History of appendectomy 167634212 Z90.49 [id number] Jaiden Day, DO [facility] [address] [place] [address] 08/09/2024 09:23:14 08/10/2024 08:40:54 Suspected COVID-19 360177333 Z20.822 Patient presents for sick visit. She would like to be tested for Covid. She reports experienci ng sore throat, chest and sinus congestion , cough, headache, dizziness since Friday. Patient states she did have a fever yesterday. COVID-19 077447488 U07.1 Patient presents for sick visit and tested positive for Covid. Discussed diagnosis is viral in nature. Recommend use of Tylenol or Motrin for fever reduction or pain. Advised importance of fluid intake and rest. Discussed contacting office if symptoms worsen or do not improve. Patient will follow up as needed. Advised if patient is having difficulty breathing, follow up immediatel y or go to the ER. Patient verbalized understand ing. Body mass index 40+ - severely obese 239073864 Z68.41 BMI 40.4Counse led on importance of healthy diet and 20-30 minutes of exercise 3-5 times per week. [id number] ANTHONY COOMBS DO [facility] [address] [place] [address] 09/20/2024 09:51:56 09/21/2024 08:01:53 Pain of right ankle joint 6542310688 [id number] M25.571 X-ray obtained of right ankle and will send to radiologis t to review.An order for walking boot was placed.Jose Alfredo hein contact patient once x-ray results are reviewed. Hypertensive disorder 38 769260 I10 Labs obtained Diabetes m ellitus screening 879317396 Z13.1 Diet education 74866659 Z71.3 Exercises education, guidance, and counseling 309478856 Z71.82 Finding of body mass index 561654480 Z68.41 BMI 42 [id number] ANTHONY COOMBS DO [facility] [address] [place] [address] 11/24/2024 10:39:47 11/25/2024 09:05:38 Acute pelvic pain 858849818 R10.2 Her UA is negative for infection. She is scheduled to see GI at 1:30 Pm. Discussed she may have a vaginal prolapse and will need to follow up with a gynecologi st to further evaluate. Scheduled with Patricia Matias at [facility] 12/02/2024 at 11:15 AM. Pt notified. If pain worsens go to the ER. Body mass index 40+ - severely obese 063280846 Z68.41 BMI 42.5 Diet education 54494553 Z71.3 Exercises education, guidance, and counseling 805357300 Z71.82 [id number] Jaiden Day DO [facility] [place] [address] [place] [address] 12/02/2024 11:24:21 12/03/2024 09:54:42 Right lower quadrant pain 154123259 R10.31 Started 10/26/2024 -Hx of diverticul osis. Reports PCP treated with oral antibiotic s. Pending CBC and CRP results. Scheduled for CT of abdomen on 12/09/2024. -Hx of chronic constipati on. Managed by Dr. Archibald . Current treatment not managing constipati on. Advised patient to contact GI clinic to schedule appointmen t to discuss constipati on.-UA on 12/02/2024 WNL. -Hx of hysterecto my with bilateral oophorecto my d/t endometrio sis. Reviewed and discussed transabdom inal/trans vaginal ultrasound results from 12/02/2024: Midline and right adnexal regions demonstrat e multifocal bowel gas. The uterus and ovaries are not visualized . Bladder is partially distended. No adnexal mass or free fluid is otherwise seen. Unlikely CHEMI[employer] INSTRUMENTATION etiology. Pending vaginitis panel. Screening for disorder 316486905 Z11.3 Pending gonorrhea and chlamydia screening. History of total hysterectomy with bilateral salpingo-oophorectomy 695540857 Z90.79 Obesity 690625515 E66.9 BMI 42.3Recomm end BMI less than 30 EWELINA Hypertensi on screening 604160131 Z13.6 Blood pressure 128/86 on intake. [id number] Jaiden Day DO [facility] [place] [address] [place] [address] 12/02/2024 13:36:16 12/03/2024 09:56:58 Pain in pelvis 37292038 R10.2 [id number] ANTHONY COOMBS DO [facility] [address] [facility] [place] [address] 12/13/2024 09:54:31 12/14/2024 08:29:36 Follow-up visit 363165218 Z09 Reviewed [facility] ER records from December 10, 2024(Negat lionel CT and US) Abdominal pain 63376061 R10.9 She is scheduled for a HIDA scan on at 1:30 PM Low back pain 176087956 M54.50 Discussed she may continue the ibuprofen and tylenol. Will start on tramadol and tizanidine PRN.X-ray obtained of lumbar spine and will send to radiologis t to review. Body mass index 40+ - severely obese 510717313 Z68.41 BMI 42.5 Diet education 12709238 Z71.3 Exercises education, guidance, and counseling 671395573 Z71.82 [id number] ANTHONY COOMBS DO [facility] [address] [place] [address] 12/23/2024 11:48:49 12/27/2024 09:14:19 Body mass index 40+ - severely obese 263927948 Z68.41 BMI 42.7 Diet education 14001580 Z71.3 Exercises education, guidance, and counseling 310212999 Z71.82 Low back pain 497483853 M54.50 She has been to chiropract or and had mag wave treatment with no [facility] t.She has been taking the ibuprofen, tylenol and tizanidine PRN.Will d/c ibuprofen and start on meloxicam daily. Steroids provided to help reduce inflammati on.Order placed for MRI and physical therapy. [id number] ANTHONY COOMBS [facility] [address] [place] [address] 04/27/2025 11:42:05 04/28/2025 08:13:50 Body mass index 40+ - severely obese 662905867 Z68.41 BMI 43 Diet education 04666023 Z71.3 Exercises education, guidance, and counseling 891378034 Z71.82 Essential hypertension 89842147 I10 Instructed to take her blood pressure as directed Viral gastroenteritis 11 2396879 A08.4 Rest, Fluids, If not improving let us know. Tick bite 41106013 S30.8 60A W57.XXXA Diabetes m ellitus screening 345213913 Z13.1 Health Concerns Section Related Observation LastModified by Organization Detai ls LastModified Time None Recorded Concern Status LastModified by Organization Details LastModified Time None Recorded Advance Directives Directive N: Payers Insurance Date Sequence Insurance Name Policy Number Policy Diaz Covered Member ID Diaz Member ID Guarantor Name 12/30/2019 1 [place] [facility] [id number] Deyvi Munguia [id number] Eloina Munguia 05/30/2020 1 [facility] [id number] Deyvi Munguia [id number] Eloina Munguia 12/31/2021 SLIDING FEE SCHEDULE - DISCOUNT Eloina Munguia 12/02/2024 1 [place] [facility] - [employer] (PPO) [id number] Deyvi Munguia [id number] Eloina Munguia 12/13/2024 1 [facility] [id number] Eloina Munguia [id number] Eloina Munguia 05/03/2025 1 [facility] [id number] Eloina Munguia [id number] Eloina Munguia 12/10/2023 2 [facility] ([place] 112 Deyvi Munguia [id number] Eloina Munguia 12/13/2024 1 [facility] (PPO) [id number] Eloina Munguia [id number] Eloina Munguia Notes Date Note Type Note Provider Name and Address Organization Details Recorded Time 12/02/2024 text/html Eloina is a 49 yea r old female, referred by Lori Dugan NP for right lower quadrant pain. She reports pain started on 10/26/2024. Pain is exacerbated with movement. She also has accompany nausea and vomiting. She reports a history of chronic constipation that is not controlled with current magnesium. She is being followed by GI, Dr. Archibald. She also reports a history of diverticulosis. She reports PCP, prescribed oral antibiotics for possible diverticulitis. She reports completing antibiotics with no improvement of symptoms. She is scheduled for CT scan of abdomen on 12/09/2024. Reports hysterectomy with bilateral oophorectomy 4-5 years ago for endometriosis. She denies any vaginal discharge, odor, or lesions. History of appendectomy 5-6 years ago. [place] [facility], [facility] [address], [address], [facility] 12/02/2024 17:18:31 12/13/2024 text/html Patient went to ER on December 10, 2024 with abdominal pain. She had a negative CT and US. While at ER she just had a slight elevated of her AST(34), ALT (40). Her pain first started in October. Now the pain is in her lower back on the right side. She said when she goes to stand up to walk she feels like something is pushing on it. She doesn't recall an injury. She went to GI and they are suspecting it might be her gallbladder. She is scheduled for a hida scan on . She was was seen at [place] [facility] on December 04, 2024 and was told she had kidney stones. She said she is not able to eat much without vomiting. Lori Dugan NP [address], [address], [facility] 12/13/2024 15:19:46 12/23/2024 text/html Patient presents with complains of back pain. She states the pain has not improved. She has trouble sleeping due to pain and not being able to get in comfortable position. She has been going to the chiropractor and did a mag wave treatment with no improvement. Lori Dugan NP [address], [address], [facility] 12/23/2024 14:20:05 04/27/2025 text/html Patient states s he had diarrhea last night until about 3 AM. While at work she started getting dizzy. Her blood pressure is elevated today and reports she didn't take her blood pressure medication. She also had a recent tick bite on her left upper back. Lori Dugan NP [address], [address], [facility] 04/27/2025 12:23:30 OBGyn Episode No OBEpisode recorded.
--- NOTE | 2025-05-25 09:49 | CTR_ITS ---
PROCEDURE INFORMATION: Exam: CTA Head With Contrast, Arteriography Exam date and time: 05/25/2025 9:53 AM Age: 49 years old Clinical indication: Dizziness and giddiness TECHNIQUE: Imaging protocol: Computed tomographic angiography of the head with contrast. Exam focused on the arteries. 3D rendering (Not supervised by radiologist): MIP reconstructed images were created by the technologist. Radiation optimization: All CT scans at this facility use at least one of these dose optimization techniques: automated exposure control; mA and/or kV adjustment per patient size (includes targeted exams where dose is matched to clinical indication); or iterative reconstruction. Contrast material: OMNI 350; Contrast volume: 100 ml; Contrast route: INTRAVENOUS (IV); COMPARISON: CT head thrombolytic [id number] 05/25/2025 9:41 AM RADIATION DOSE METRICS: Total DLP (mGy-cm): 500.53 FINDINGS: ANTERIOR CIRCULATION: Right internal carotid artery: Intracranial segment is patent with no significant stenosis. No aneurysm. Right middle cerebral artery: No occlusion or significant stenosis. No aneurysm. Right anterior cerebral artery: No occlusion or significant stenosis. No aneurysm. Left internal carotid artery: Intracranial segment is patent with no significant stenosis. No aneurysm. Left middle cerebral artery: No occlusion or significant stenosis. No aneurysm. Left anterior cerebral artery: No occlusion or significant stenosis. No aneurysm. POSTERIOR CIRCULATION: Right vertebral artery: No occlusion or significant stenosis. No aneurysm. Left vertebral artery: No occlusion or significant stenosis. No aneurysm. Basilar artery: No occlusion or significant stenosis. No aneurysm. Right posterior cerebral artery: No occlusion or significant stenosis. No aneurysm. Left posterior cerebral artery: No occlusion or significant stenosis. No aneurysm. Brain: No definite mass, mass effect, or midline shift. Ventricles: No hydrocephalus. Bones/joints: No acute abnormality. No acute fracture. Soft tissues: Unremarkable. PROCEDURE INFORMATION: Exam: CTA Neck With Contrast Exam date and time: 05/25/2025 9:53 AM Age: 49 years old Clinical indication: Dizziness and giddiness TECHNIQUE: Imaging protocol: Computed tomographic angiography of the neck with contrast. Exam focused on the cervical segments of the vasculature. 3D rendering (Not supervised by radiologist): MIP reconstructed images were created by the technologist. Radiation optimization: All CT scans at this facility use at least one of these dose optimization techniques: automated exposure control; mA and/or kV adjustment per patient size (includes targeted exams where dose is matched to clinical indication); or iterative reconstruction. Contrast material: OMNI 350; Contrast volume: 100 ml; Contrast route: INTRAVENOUS (IV); COMPARISON: CT head thrombolytic [id number] 05/25/2025 9:41 AM RADIATION DOSE METRICS: Total DLP (mGy-cm): 500.53 FINDINGS: Right common carotid artery: No stenosis. No dissection or occlusion. Right internal carotid artery: No stenosis of the extracranial segment. No dissection or occlusion. Right external carotid artery: No occlusion or stenosis of the origin. Left common carotid artery: No stenosis. No dissection or occlusion. Left internal carotid artery: No stenosis of the extracranial segment. No dissection or occlusion. Left external carotid artery: No occlusion or stenosis of the origin. Right vertebral artery: No stenosis. No dissection or occlusion. Left vertebral artery: No stenosis. No dissection or occlusion. Soft tissues: Normal. No significant soft tissue swelling. Bones/joints: Slight C4-C5. C5-6 degenerative disc disease with mild spondylosis. Moderate bilateral C5-C6 neural foraminal narrowing. CT/CT angio headneck* [id number] IMPRESSION: No acute intracranial vascular abnormality identified. IMPRESSION: No acute intracranial abnormality identified. REFERENCES: NASCET CRITERIA. The degree of stenosis in the cervical segment of the internal carotid artery is based on NASCET criteria. Normal is no stenosis. Mild is less than 50% stenosis. Moderate is 50-69% stenosis. Severe is 70% to 99% stenosis. Total occlusion is no detectable patent lumen.
[2025-05-25] MEDS: iohexol 350 mg/mL 500 mL Btl (per mL) IV (10:00)
[2025-05-25 10:03] LABS: Hematocrit 42.4 % (36-47); Hemoglobin 14.10 g/dL (11.27-16.99); Mean Corpuscular HGB Conc 33.3 g/dL (30-55); Mean Corpuscular Hemoglobin 30.7 pg (27-33); Mean Corpuscular Volume 92.2 fl (85-98); Nucleated Red Blood Cells % 0 %; Platelet Count 292 10^3/cmm (157-399); Red Blood Count 4.60 10^6/uL (3.85-5.65); White Blood Count 6.21 10^3/uL (3.29-11.43)
[2025-05-25] MEDS: ondansetron 2 mg/ML SDV 2 mL 4 MG IVP (10:03)
--- NOTE | 2025-05-25 10:12 | PM.CONSULT ---
Providers/Reason For Consult Consulting Physician/Specialty*: Adolfo Goodwin MD neurology and epilepsy Reason for Consult*: Stroke alert/acute care/vertigo Primary Care Provider: Lori Dugan NP History of Present Illness History of Present Illness Eloina Munguia is a 49 year old female with a history of diverticulitis associated with blood in her stool and history of constipation and prediabetes. The patient stated that on 05/25/2025 she was at home and stated that she has been experiencing constipation. Patient stated that she experienced nausea and vomiting because she had drank coffee and was still dealing with constipation which is not unusual. Patient stated that she was getting ready and was brushing her hair and suddenly experienced severe objective vertigo and felt an odd sensation down the right arm and dropped her brush. Patient denied visual loss or headaches. Patient presented to the [facility] emergency department. Stroke alert was initiated at 9:38 AM on 05/25/2025. NIH stroke score =0. Point of contact glucose Accu-Chek not available for review Stat thrombolytic noncontrast head CT 05/25/2025 negative for any acute findings CT angiogram head and neck 05/25/2025 results pending at the time of this dictation Labs for CBC and comprehensive metabolic panel were unrevealing. Glucose 87. Drug allergies: None Current medications: Diclofenac 50 mg p.o. 3 times daily Estradiol 0.01% vaginal cream Estradiol 0.5 mg p.o. daily Hydrochlorothiazide 25 mg p.o. daily Hyoscyamine 0.125 mg p.o. 3 times daily, as needed nausea Hyoscyamine 0.125 mg sublingual 3 times daily as needed dyspepsia Lisinopril 10 mg p.o. daily Magnesium oxide 1000 mg p.o. daily Nitrofurantoin 100 mg p.o. twice daily Omeprazole 20 mg p.o. daily Flomax 0.4 mg p.o. daily Ozempic Past medical history: Diverticulitis with recurrent blood in her stool (addressed by GI physician in [place]) Prediabetes Menopausal syndrome Chronic constipation Habits: None Family history: Remarkable for father who experienced a stroke Last menstrual period: Patient denies being Review of Systems General: Reports: 10 or more systems reviewed and unremarkable except in HPI and below Medications/Allergies Home Medications ?Medication ?Instructions ?Recorded ?Confirmed ?Last Taken ?Type hydrochlorothiazide 25 mg tablet 25 mg PO DAILY 02/17/23 12/10/24 01/22/24 History lisinopril 10 mg tablet 10 mg PO DAILY 02/17/23 12/10/24 01/22/24 History omeprazole 20 mg capsule,delayed 20 mg PO DAILY 06/26/23 12/10/24 01/22/24 History release estradiol 0.01% (0.1 mg/gram) 1 g vaginal .2-3 times weekly 09/08/24 12/10/24 Unknown Rx vaginal cream (Estrace) #42.5 grams estradiol 0.5 mg tablet 0.5 mg PO DAILY #90 tabs 09/08/24 12/10/24 Unknown Rx diclofenac sodium 50 mg 50 mg PO TID 12/10/24 12/10/24 Unknown History tablet,delayed release hyoscyamine sulfate 0.125 mg 0.125 mg PO QID PRN Nausea 12/10/24 12/10/24 Unknown History sublingual tablet hyoscyamine sulfate 0.125 mg 0.125 mg sublingual TID PRN 12/10/24 Unknown Rx sublingual tablet (Levsin/SL) dyspepsia #30 tabs magnesium oxide 1,000 mg PO DAILY 12/10/24 12/10/24 Unknown History tamsulosin 0.4 mg capsule 0.4 mg PO DAILY 12/10/24 12/10/24 Unknown History nitrofurantoin 100 mg PO BID #10 caps 02/03/25 Unknown Rx monohydrate/macrocrystals 100 mg capsule (Macrobid) Allergies Allergy/AdvReac Type Severity Reaction Status Date / Time No Known Allergies Allergy Verified 05/25/25 09:42 PFSH Acute PFSH: Medical History (Updated 05/25/25 @ 10:21 by Adolfo Goodwin MD) Menopause syndrome Surgical aftercare, genitourinary system Abnormal Pap smear of cervix (~2009) Self reported--resulting in hysterectomy by a manufacturing machine operator/oncologist at [facility] in [place]. She has failed to follow-up with Pap smear since that time. No pertinent past medical history neghx: htn,dm,thyroid,dvt/pe PCP: None Surgical History History of laparoscopy (~09/09/23) Diagnostic laparoscopy with LEFT salpingo-oophorectomy for CPP and endometriosis performed by Oskar at [facility]; no adhesions or findings. History of laparoscopy (01/01/23) Diagnostic laparoscopy and fulguration of endometriosis lesion for chronic pelvic pain performed by Dr. Schmitt. Mild endometriosis at the vaginal cuff otherwise normal pelvis. H/O laparoscopy ovarian cystectomy of Right ovary at 18 y/o- performed by Dr Nieto. Hx of oophorectomy (~2011) R ovary--- laparoscopy performed by Dr. Nieto. Hx of hysterectomy (~2009) [facility] bilateral salpingectomy for abnormal pap smears. Performed by Dr. Wu at [facility] manufacturing machine operator/oncologist. Hx of appendectomy (~2017) Family History Grandmother Colon cancer Maternal--dx age 50 Diabetes Maternal and Paternal Uterine cancer Paternal-dx age unknown Mother Diabetes Father Diabetes Hypertension Stroke Grandfather Diabetes Maternal and Paternal Family/Other Ovarian cancer Paternal Aunt--dx age 23 Denies family history of Heart disease Hypercholesteremia Breast cancer Thyroid disease Social History Smoking and tobacco/nicotine status: never used tobacco/nicotine Vitals/I&O/Wt Last Vital Signs Temp 98.2 F 05/25/25 09:36 Pulse 97 05/25/25 09:36 BP 190/115 05/25/25 09:36 Pulse Ox 98 05/25/25 09:36 O2 Del Method Room Air 05/25/25 09:36 Weight last 48 hrs Weight 260 lb Physical Exam Narrative: NIH stroke score =0. Point of contact glucose Accu-Chek not available for review Stat thrombolytic noncontrast head CT 05/25/2025 negative for any acute findings CT angiogram head and neck 05/25/2025 The patient is alert and oriented x 3. Speech fluent. Head normocephalic. Neck supple. Cranial nerves II through XII intact. There was no obvious facial weakness. Pupils 4 mm round reactive to light and accommodation. Extraocular movements intact. There were no nystagmus on extraocular movements. Visual hutchinson appear to be full via confrontation. There was no ataxia on [id number]. Motor testing 5/5 bilaterally. Plantar responses flexor bilaterally. There was no clonus. There was no extinction on double sensory stimulation. Throat clear. Lungs clear. Heart regular rhythm and rate. Extremities were negative for cyanosis. Data 05/25/25 09:54 05/25/25 09:54 A&P Assessment and plan 1. Vertigo: Impression: 1. Acute onset of objective vertigo on 05/25/2025 occurring at approximately 7:30 AM. NIH stroke score =0. Stat noncontrast thrombolytic head CT was negative. Since the patient's NIH stroke score =0. The patient was not a candidate for intravenous thrombolytics and no intravenous thrombolytics were administered. 2. History of diverticulitis associated with rectal bleeding, addressed by GI physician in [place] 3. Chronic constipation 4. Prediabetes Plan: 1. Follow-up official reading on CT angiogram of the head and neck performed on 05/25/2025 to assess for any posterior circulation stenosis 2. Agree with meclizine for vertigo/dizziness 3. Recommend patient follow-up with GI physician for diverticulitis and chronic constipation 4. If CT angiogram is unrevealing and patient's symptoms improved, patient stable from neurological standpoint for discharge planning and have patient follow-up with family physician for dizziness/vertigo. If patient's symptoms do not continue to improve in the emergency department recommend patient be admitted to observation and obtain head MRI without and with contrast to assess for posterior fossa lesion and to evaluate for possible posterior circulation stroke although clinical examination is not consistent with posterior circulation stroke as well as obtaining Occupational Therapy, physical therapy and speech therapy consult and fall precautions if patient requires admission and continue neurochecks and vital signs per NIH stroke protocol 5. Stroke pamphlet/stroke education 6. Recommend obtaining fasting lipid profile and consider lipid-lowering agent if indicated PDMP PDMP Reviewed: Not Reviewed Consult Attestations Medical Necessity Statement: The patient was evaluated by neurology for stroke alert/acute care emergency department room #13 Coding Level of Care Code 76551 Diagnoses Vertigo R42
[2025-05-25 10:16] LABS: INR 0.86 (0.8-1.2); Prothrombin Time 12.40 SECONDS (12.1-14.9)
[2025-05-25 10:17] LABS: Partial Thromboplastin Time 26.5 SECONDS (23.9-36.7)
[2025-05-25 10:19] LABS: Glucose Urine UA Negative (Normal); Nitrate Urine Negative (Negative); Specific Gravity, Urine 1.013 (1.005-1.030)
[2025-05-25 10:20] LABS: Alanine Aminotransferase 23 U/L (0-33); Albumin Level 4.1 g/dL (3.5-5.2); Alkaline Phosphatase 128 U/L (35-105); Anion Gap 15.3 (5-19); Aspartate Amino Transferase 23 U/L (0-32); Blood Urea Nitrogen 9 mg/dL (6-20); Calcium 9.4 mg/dL (8.5-10.5); Carbon Dioxide 24 mmol/L (22-29); Chloride 105 mmol/L (98-107); Creatinine Clr Calc Pharmacy 109.9071; Globulin 2.8 g/dL (1.3-4.6); Glucose 87 mg/dL (65-115); Osmolality Calculated 288 mOsm/kg (285-295); Potassium 4.3 mmol/L (3.5-5.1); Sodium 140 mmol/L (136-145); Total Protein 6.9 g/dL (6.6-8.7)
[2025-05-25 10:22] LABS: Add Urine Microscopic? YES
[2025-05-25 10:27] LABS: PCP Screen Urine Negative (Negative)
[2025-05-25 11:04] VITALS: BP 146/101; PULSE 77; O2SAT 98
[2025-05-25 11:34] VITALS: BP 146/101; PULSE 77; O2SAT 98
== END 2025-05-25 11:36 | disposition home or self-care (01) ==
PROVIDERS: Emergency Provider Emergency Medicine; PCP Nurse Practitioner Family
DX: R42 Dizziness and giddiness (principal)
CPT/HCPCS: 36415; 36416; 70450; 70496; 70498; 71045; 80053; 80306; 81001; 82962; 85025; 85610; 85730; 93005; 96374; 99285; J2405; J8597